=== PATIENT | female | born 1965 | race Caucasian/White ===

== ENCOUNTER 2021-05-19 04:02 | Inpatient (IN) | payer OTHER, SELFPAY ==
[2021-05-19] VITALS (20 sets, daily range): BP systolic 92–128; BP diastolic 55–99; PULSE 74–120; RESP 14–33; TEMP 36.2–38.1; O2SAT 92–100; BMI 39.4; BMI 39.7
--- NOTE | 2021-05-19 04:12 | ED.RN ---
Last night started with rectal pain and in pelvic area and lower back. Took tylenol for pain. Started senna but states she does not know if she went a while without a bm but had back in november so took it. By Saturday, felt lethargic and drank fluids and rested. Woke up Saturday night and was sweating and said fever was maybe 100. Went to Urgent Care and states had a fever then. Took tylenol today at 0130 because temp 99.9. But also SOb and nausea and not able to drink because of nausea and threw up. States the nausea has been for one day. Then, states last two days, not drinking a lot.
--- NOTE | 2021-05-19 04:26 | EX.ED.DYSGE1 ---
HPI <Dr. Titi Preston, DO - Last Filed: 05/19/21 06:55> History of Present Illness Chief Complaint: General Illness Narrative Narrative: Patient is a 56-year-old female who states that over the last 24 to 48 hours she has noticed some generalized lower abdominal discomfort with difficulty/pain urinating as well as rectal pain. She denies any fevers or chills or trauma prior to the pain beginning. She states she has felt slightly constipated during this time. Patient denies any previous intestinal disorder and states her only abdominal surgery is gallbladder removal. She states that she feels the pain is worsening and with this is concerned and comes in for evaluation [facility] <Dr. Titi Preston, DO - Last Filed: 05/19/21 06:55> [facility] Home Medications NK 05/19/21 [History Last Taken Unknown] Allergy/AdvReac Type Severity Reaction Status Date / Time No Known Allergies Allergy Verified 06/02/17 11:03 Social History Smoking Status: Never smoker ROS <Dr. Titi Preston, DO - Last Filed: 05/19/21 06:55> ROS ED Constitutional Constitutional ED: Denies chills or fever(s) ENT ENT ED: Denies sore throat Cardiovascular Cardiovascular: Denies chest pain Respiratory/Chest Respiratory/Chest: Denies cough or dyspnea Gastrointestinal Gastrointestinal: Reports abdominal pain, constipation and nausea; Denies diarrhea or vomiting Genitourinary Genitourinary ED: Reports dysuria Musculoskeletal Musculoskeletal: Reports myalgias Integumentary Denies rash Neurologic Neurologic: Denies headache(s) Hematologic/Lymphatic Hematologic/Lymphatic: Denies easy bleeding or easy bruising EXAM <Dr. Titi Preston, DO - Last Filed: 05/19/21 06:55> Physical Exam Const Vital Signs: 05/19/21 04:04 05/19/21 04:08 05/19/21 04:10 Temperature 98.3 F 98.3 F Temperature Source Temporal Temporal Pulse Rate 120 H 95 Respiratory Rate 17 17 Respiratory Effort Normal Respiratory Pattern Normal Blood Pressure 126/68 H 128/68 H Blood Pressure Mean 87 88 Pulse Ox 95 98 Oxygen Delivery Method Room Air Room Air 05/19/21 06:26 05/19/21 06:59 05/19/21 07:01 Temperature 98.7 F 98.2 F 98.7 F Temperature Source Temporal Temporal Temporal Pulse Rate 104 H 74 99 Respiratory Rate 16 17 18 Respiratory Effort Respiratory Pattern Blood Pressure 128/72 H 122/65 H 122/65 H Blood Pressure Mean 90 84 84 Pulse Ox 98 98 97 Oxygen Delivery Method Room Air Room Air Room Air 05/19/21 08:23 05/19/21 09:00 Temperature 97.1 F L Temperature Source Temporal Pulse Rate 91 83 Respiratory Rate 16 14 Respiratory Effort Respiratory Pattern Blood Pressure 124/71 H 121/81 H Blood Pressure Mean 88 94 Pulse Ox 98 95 Oxygen Delivery Method Room Air Room Air Positive well nourished and well developed General Appearance ED: well developed HEENT Reports moist mucous membranes Eyes PERRL and EOMs intact bilaterally Neck supple Chest Wall palpation of chest normal Resp normal respiratory effort and clear to auscultation bilaterally Cardio regular rate and regular rhythm Rate: other Other Details: Radial pulses are plus 2 out of 4 bilaterally are equal and symmetric GI GI Narrative: Abdomen is obese soft and nondistended with hypoactive bowel sounds. There is pain with palpation in the left lower quadrant with mild voluntary guarding at the site. No rigidity or pulsatile mass noted Back/Spine no CVA tenderness Extremity normal to inspection Neuro oriented x3 and CN's II-XII intact bilaterally Sensorium / Orientation: alert Motor Exam: strength 5/5 throughout Psych mental status grossly normal Skin no rashes or lesions noted <Dr. Elier Juan MD - Last Filed: 05/19/21 10:28> Physical Exam Const Vital Signs: 05/19/21 04:04 05/19/21 04:08 05/19/21 04:10 Temperature 98.3 F 98.3 F Temperature Source Temporal Temporal Pulse Rate 120 H 95 Respiratory Rate 17 17 Respiratory Effort Normal Respiratory Pattern Normal Blood Pressure 126/68 H 128/68 H Blood Pressure Mean 87 88 Pulse Ox 95 98 Oxygen Delivery Method Room Air Room Air 05/19/21 06:26 05/19/21 06:59 05/19/21 07:01 Temperature 98.7 F 98.2 F 98.7 F Temperature Source Temporal Temporal Temporal Pulse Rate 104 H 74 99 Respiratory Rate 16 17 18 Respiratory Effort Respiratory Pattern Blood Pressure 128/72 H 122/65 H 122/65 H Blood Pressure Mean 90 84 84 Pulse Ox 98 98 97 Oxygen Delivery Method Room Air Room Air Room Air 05/19/21 08:23 05/19/21 09:00 Temperature 97.1 F L Temperature Source Temporal Pulse Rate 91 83 Respiratory Rate 16 14 Respiratory Effort Respiratory Pattern Blood Pressure 124/71 H 121/81 H Blood Pressure Mean 88 94 Pulse Ox 98 95 Oxygen Delivery Method Room Air Room Air [facility] <Dr. Titi Preston, DO - Last Filed: 05/19/21 06:55> [facility] Narrative Medical decision making narrative: Patient presented to the ER afebrile but did report worsening pain over the past 24 hours and did have mild guarding on exam. Therefore elected to perform basic laboratory studies and a CT scan. The patient's white count is grossly elevated at 30.4 and she denies any recent steroid use. Despite this high value her lactic is normal at 1.9. CT scan showed an approximate 11 cm pelvic abscess with tubo-ovarian abscess. With this finding the patient was started on vancomycin and Zosyn and blood cultures were obtained. The case was discussed with [facility] TECHNICIAN and they recommend pelvic ultrasound at this time. Therefore the pelvic ultrasound will be obtained. Following this the case can once more be discussed with [facility]ING TECHNICIAN but I feel that based on the patient's pain white blood cell count and pelvic infection that she needs to be kept in the hospital and should be admitted at this time for further treatment. Lab Data Attestation: I reviewed the patient's lab results. Labs: Laboratory Results - last 24 hr 05/19/21 05/19/21 05/19/21 04:25 04:30 04:30 WBC 30.4 H* RBC 3.36 L Hgb 8.9 L Hct 27.5 L MCV 81.8 MCH 26.5 L MCHC 32.4 RDW Std Deviation 47.4 H RDW Coeff of Aldo 15.7 H Plt Count 490 H MPV 9.6 Immature Gran % (Auto) 3.900 H Neut % (Auto) 87.0 H Lymph % (Auto) 3.8 L [place] % (Auto) 4.7 Eos % (Auto) 0.2 Baso % (Auto) 0.4 Absolute Neuts (auto) 26.5 H Absolute Lymphs (auto) 1.14 Nucleated RBC % 0 [address] Review May foll Sodium 136 Potassium 3.4 L Chloride 100 Carbon Dioxide 27.0 Anion Gap 9 BUN 13 Creatinine 0.63 Estim Creat Clear Calc 88.15 Est GFR (MDRD) Af Amer 126 Est GFR (MDRD) Non-Af 104 BUN/Creatinine Ratio 20.6 H Glucose 127 H Lactic Acid 1.9 Calcium 8.8 Total Bilirubin 0.40 Direct Bilirubin 0.21 AST 46 H ALT 44 Alkaline Phosphatase 177 H Total Protein 6.7 Albumin 1.9 L Globulin 4.8 H Lipase 48 L Urine Color Urine Clarity Urine pH Ur Specific [place] Urine Protein Urine Glucose (UA) Urine Ketones Urine Occult Blood Urine Nitrite Urine Bilirubin Urine Urobilinogen Ur Leukocyte Esterase Urine RBC Urine WBC Ur Squamous Epith Cells Urine Bacteria Urine Mucus 05/19/21 04:50 WBC RBC Hgb Hct MCV MCH MCHC RDW Std Deviation RDW Coeff of Aldo Plt Count MPV Immature Gran % (Auto) Neut % (Auto) Lymph % (Auto) [place] % (Auto) Eos % (Auto) Baso % (Auto) Absolute Neuts (auto) Absolute Lymphs (auto) Nucleated RBC % Diff Path Review Sodium Potassium Chloride Carbon Dioxide Anion Gap BUN Creatinine Estim Creat Clear Calc Est GFR (MDRD) Af Amer Est GFR (MDRD) Non-Af BUN/Creatinine Ratio Glucose Lactic Acid Calcium Total Bilirubin Direct Bilirubin AST ALT Alkaline Phosphatase Total Protein Albumin Globulin Lipase Urine Color Sneha Urine Clarity Cloudy Urine pH 6.0 Ur Specific [place] 1.020 Urine Protein 100 H Urine Glucose (UA) Normal Urine Ketones 5 H Urine Occult Blood 250 H Urine Nitrite Positive H Urine Bilirubin 1 H Urine Urobilinogen 4 H Ur Leukocyte Esterase 100 H Urine RBC > 100 SEEN Urine WBC 5-10 SEEN Ur Squamous Epith Cells 0-5 SEEN Urine Bacteria 1+ Urine Mucus 0 SEEN Radiography Diagnostic Testing: Clinical Impression(s) from Imaging Studies Abdomen/Pelvis CT 05/19/21 04:27 IMPRESSION: Pelvic abscess, probably left tubo-ovarian abscess. Electronically Signed: Jerson Munguia MD at 6:25 EDT Tel , Service support , Pelvis Ultrasound 05/19/21 06:40 IMPRESSION: Complex cystic structure of the left ovary correlating abnormality on CT continues to be suspicious for tubo-ovarian abscess. Electronically Signed: Tal French MD ([place]) at 8:07 EDT , Service support , <Dr. Elier Juan MD - Last Filed: 05/19/21 10:28> MDM MDM Narrative Medical decision making narrative: Took over care of this patient. Ultrasound was performed after CT and is consistent with a left tubo-ovarian abscess, correlating with the CT findings. Discussed with Dr. Bacon, now covering for gynecology. She discussed with interventional radiology, they will drain her early this afternoon, and in the meantime she will be admitted. The patient is doing well clinically, her pain is under control and her vital signs are normal. Antibiotics were given in the emergency department. Lab Data Labs: Laboratory Results - last 24 hr 05/19/21 05/19/21 05/19/21 04:25 04:30 04:30 WBC 30.4 H* RBC 3.36 L Hgb 8.9 L Hct 27.5 L MCV 81.8 MCH 26.5 L MCHC 32.4 RDW Std Deviation 47.4 H RDW Coeff of Aldo 15.7 H Plt Count 490 H MPV 9.6 Immature Gran % (Auto) 3.900 H Neut % (Auto) 87.0 H Lymph % (Auto) 3.8 L [place] % (Auto) 4.7 Eos % (Auto) 0.2 Baso % (Auto) 0.4 Absolute Neuts (auto) 26.5 H Absolute Lymphs (auto) 1.14 Nucleated RBC % [address] Review May foll Sodium 136 Potassium 3.4 L Chloride 100 Carbon Dioxide 27.0 Anion Gap 9 BUN 13 Creatinine 0.63 Estim Creat Clear Calc 88.15 Est GFR (MDRD) Af Amer 126 Est GFR (MDRD) Non-Af 104 BUN/Creatinine Ratio 20.6 H Glucose 127 H Lactic Acid 1.9 Calcium 8.8 Total Bilirubin 0.40 Direct Bilirubin 0.21 AST 46 H ALT 44 Alkaline Phosphatase 177 H Total Protein 6.7 Albumin 1.9 L Globulin 4.8 H Lipase 48 L Urine Color Urine Clarity Urine pH Ur Specific [place] Urine Protein Urine Glucose (UA) Urine Ketones Urine Occult Blood Urine Nitrite Urine Bilirubin Urine Urobilinogen Ur Leukocyte Esterase Urine RBC Urine WBC Ur Squamous Epith Cells Urine Bacteria Urine Mucus 05/19/21 04:50 WBC RBC Hgb Hct MCV MCH MCHC RDW Std Deviation RDW Coeff of Aldo Plt Count MPV Immature Gran % (Auto) Neut % (Auto) Lymph % (Auto) [place] % (Auto) Eos % (Auto) Baso % (Auto) Absolute Neuts (auto) Absolute Lymphs (auto) Nucleated RBC % Diff Path Review Sodium Potassium Chloride Carbon Dioxide Anion Gap BUN Creatinine Estim Creat Clear Calc Est GFR (MDRD) Af Amer Est GFR (MDRD) Non-Af BUN/Creatinine Ratio Glucose Lactic Acid Calcium Total Bilirubin Direct Bilirubin AST ALT Alkaline Phosphatase Total Protein Albumin Globulin Lipase Urine Color Sneha Urine Clarity Cloudy Urine pH 6.0 Ur Specific [place] 1.020 Urine Protein 100 H Urine Glucose (UA) Normal Urine Ketones 5 H Urine Occult Blood 250 H Urine Nitrite Positive H Urine Bilirubin 1 H Urine Urobilinogen 4 H Ur Leukocyte Esterase 100 H Urine RBC > 100 SEEN Urine WBC 5-10 SEEN Ur Squamous Epith Cells 0-5 SEEN Urine Bacteria 1+ Urine Mucus 0 SEEN Radiography Diagnostic Testing: Clinical Impression(s) from Imaging Studies Abdomen/Pelvis CT 05/19/21 04:27 IMPRESSION: Pelvic abscess, probably left tubo-ovarian abscess. Electronically Signed: Jerson Munguia MD at 6:25 EDT Tel , Service support , Pelvis Ultrasound 05/19/21 06:40 IMPRESSION: Complex cystic structure of the left ovary correlating abnormality on CT continues to be suspicious for tubo-ovarian abscess. Electronically Signed: Tal French MD ([place]) at 8:07 EDT , Service support , Discharge Plan Triage Chief Complaint: General Illness ED Provider: Elier Juan Dx/Rx/DC Orders Clinical Impression: Leukocytosis, Left tubo-ovarian abscess Prescriptions: No Action NK RF: 0 Primary Care Provider: Janet Simon Referrals: Janet Simon MD [Primary Care Provider] - Disposition Disposition: Acute Care Hospital [facility]
--- NOTE | 2021-05-19 04:27 | CT_ITS ---
STUDY: CT ABDOMEN AND PELVIS WITH CONTRAST REASON FOR EXAM: Female, 56 years old. LLQ pain / ? Diverticulitis RADIATION DOSAGE (If Supplied By Facility): CTDIvol = ( 15.26 ) mGy, DLP = ( 1297.33 ) mGycm TECHNIQUE: Transaxial images were obtained from the dome of the diaphragm to the symphysis pubis without oral contrast. IV 100mL Isovue-[id number] was administered. Sagittal and coronal images were reconstructed. Individualized dose optimization techniques were used for this CT. COMPARISON: 06/02/2017 FINDINGS: The visualized lung bases are unremarkable. The visualized portions of the heart are within normal limits. Normal liver. Small upper hepatic cysts redemonstrated. There are surgical clips in the gallbladder fossa consistent with a prior cholecystectomy. Normal spleen. Normal pancreas. Normal bilateral adrenal glands. Normal right kidney. Normal left kidney. Small hiatal hernia. Normal visualized stomach. Normal small intestine. There are multiple colonic diverticula consistent with diverticulosis. The appendix is visualized and appears normal. Normal abdominal aorta. Normal inferior vena cava. Normal retroperitoneum. Normal urinary bladder. A 10.8 cm loculated fluid and gas collection with surrounding fat haziness and fluid abuts the left aspect of the uterus, and the posterior aspect of the left fallopian tube, which separates this structure from the sigmoid colon. There is a small umbilical hernia containing fat. Thoracolumbar vertebral alignment is maintained. CT/Abdomen/Pelvis W IV Cont ONLY IMPRESSION: Pelvic abscess, probably left tubo-ovarian abscess. Electronically Signed: Jerson Munguia MD at 6:25 EDT Tel , Service support ,
[2021-05-19 04:41] LABS: Absolute Lymphocyte Count 1.14 X10^3/uL (0.83-4.51); Absolute Neutrophil Count 26.5 X10^3/uL (2.0-7.7); Basophil# 0.11 X10^3/uL; Basophil% 0.4 % (0-1); Eosinophil# 0.05 X10^3/uL; Eosinophils% 0.2 % (0-5); Hematocrit 27.5 % (37-47); Hemoglobin 8.9 g/dL (12.0-15.0); Lymphocyte # 1.14 X10^3/ul (0.83-4.51); Lymphocyte % 3.8 % (19-41); Mean Corp Hgb Conc 32.4 g/dL (32-36); Mean Corpuscular Hgb 26.5 pg (27.0-32.0); Mean Corpuscular Volume 81.8 fL (81-99); Mean Platelet Vol. 9.6 fl (6.2-12.0); Monocyte# 1.42 X10^3/uL; Monocyte% 4.7 % (0-10); NRBC Flagged by Analyzer 0 % (0-5); Neutrophil # 26.49 X10^3/uL (2.7-7.7); POSITIVE COUNT YES; POSITIVE DIFFERENTIAL YES; Platelet Count 490 K/mm3 (150-450); RBC Distribution Width CV 15.7 % (11.6-14.6); RBC Distribution Width SD 47.4 fl (35.1-43.9); Red Blood Count 3.36 M/mm3 (4.2-5.4); White Blood Count 30.4 K/mm3 (4.4-11.0)
[2021-05-19 04:46] LABS: Differential Indicated SCAN CRITERIA MET
[2021-05-19 04:51] LABS: AST(SGOT) 46 U/L (15-37); Alanine Aminotransfer ALT/SGPT 44 U/L (13-56); Albumin, Serum 1.9 g/dL (3.2-5.0); Alkaline Phosphatase 177 U/L (45-117); Anion Gap 9 (5-15); BUN 13 mg/dL (7-18); BUN/Creat Ratio 20.6 RATIO (10-20); Bilirubin, Direct 0.21 mg/dL (0.00-0.30); Calcium,Total 8.8 mg/dL (8.5-10.1); Chloride 100 mmol/L (98-107); Creatinine, Serum 0.63 mg/dL (0.55-1.02); EST Glomerular Filtration Rate 104 mL/min (>60); Est Glom Filt Rate - Afr Amer 126 mL/min (>60); Estimated Creatinine Clearance 88.15 ml/min; Globulin 4.8 g/dL (2.2-4.2); Glucose 127 mg/dL (74-106); Lipase 48 U/L (73-393); Potassium 3.4 mmol/L (3.5-5.1); Protein, Total 6.7 g/dL (6.4-8.2); Sodium Level 136 mmol/L (136-145)
[2021-05-19] MEDS: Ondansetron 4 MG/2 ML Vial IV (04:54)
[2021-05-19] MEDS: Morphine 4 MG/ML Syringe IV ×2 (04:54→10:37)
[2021-05-19] MEDS: 0.9% Normal Saline 1,000 ML 999 ML IV (04:55)
[2021-05-19 04:56] LABS: Color, Urine Amber (Yellow); Glucose, Dipstick Normal (Normal); Ketone-Dipstick 5 mg/dl (Negative); Leukocyte Esterase-Dipstick 100 /ul (Negative); Mucous, Urine 0 SEEN /hpf (<or=2+); Nitrite-Dipstick Positive (Negative); Occult Blood-Urine 250 /ul (Negative); Protein-Dipstick 100 mg/dl (Negative); Urine Clarity Cloudy (Clear); Urine Urobilinogen 4 mg/dl (Normal)
[2021-05-19 04:59] LABS: Urine Bilirubin Dipstick 1 mg/dL (Negative)
[2021-05-19 05:07] LABS: Red Blood Cells-Urine > 100 SEEN /hpf (0-5)
[2021-05-19 05:08] LABS: Bacteria 1+ /hpf (None Seen); White Blood Cells 5-10 SEEN /hpf (0-5)
[2021-05-19 05:09] LABS: Squamous Epithelial Cells - UA 0-5 SEEN /hpf (5-10)
[2021-05-19 05:09] LABS: Lactic Acid 1.9 mmol/L (0.4-1.9)
--- NOTE | 2021-05-19 06:40 | US_ITS ---
STUDY: ULTRASOUND OF THE FEMALE PELVIS - COMPLETE REASON FOR EXAM: Female, 56 years old. Pelvic/tubo-ovarian abscess LMP: Unknown TECHNIQUE: Transabdominal and Transvaginal TECHNICAL QUALITY: Adequate. COMPARISON: CT earlier today FINDINGS: The uterus is anteverted and is in a midline position. The uterus measures cm. Normal uterine cervix. The endometrium measures 12.1 x 6.4 x 5.2 mm in thickness, and is 9. There is no demonstrated endometrial mass. Hypoechoic lesion of the upper uterine body measures 2.2 cm, suggesting right. I.U.D. - The patient does not have an I.U.D. The right ovary is visualized. The right ovary measures 2.8 x 2.4 x 1.9 cm. There is no right ovarian cyst or ovarian mass. There is no visualized right adnexal mass or complex lesion. There is normal arterial and normal venous vascularity. The left ovary is visualized. The left ovary measures 12.3 x 5.7 x 6.3 cm. Complex hypoechoic cystic structure of the left ovary measures 4.0 x 4.0 x 2.7 cm (superior) and 6.5 x 4.4 x 4.0 cm (inferior). There is normal arterial and normal venous vascularity. There is no fluid in the cul-de-sac. Visualized urinary bladder is unremarkable. US/Pelvic (Non ) IMPRESSION: Complex cystic structure of the left ovary correlating abnormality on CT continues to be suspicious for tubo-ovarian abscess. Electronically Signed: Tal French MD ([place]) at 8:07 EDT , Service support ,
--- NOTE | 2021-05-19 10:27 | NURSING ---
MED SURG SHEEBA Ruiz TOA
--- NOTE | 2021-05-19 10:41 | ED.RN ---
provider aware of pt's red/flush face. no new orders given.
--- NOTE | 2021-05-19 10:47 | NURSING ---
blue top needs redrawn, not full enough
[2021-05-19 11:14] LABS: International Normalized Ratio 1.3; Prothrombin Time (Protime)PT. 15.2 SECONDS (11.7-14.9)
[2021-05-19 11:15] LABS: Partial Thromboplast Time 32.8 Seconds (24.1-36.2)
[2021-05-19] MEDS: Ceftriaxone 1 GM/50 ML BAG IV (12:48)
[2021-05-19] MEDS: 0.9% Normal Saline 1,000 ML 125 ML IV ×2 (13:05→21:33)
--- NOTE | 2021-05-19 14:10 | CT_ITS ---
PROCEDURE: CT DIRECTED ABSCESS DRAINAGE, PERITONEAL DATE OF EXAMINATION: 05/19/2021. INDICATION: Female, 56 years old. Left pelvic abscess. PHYSICIAN: Abel Vee M.D. CONSENT: Written informed consent was obtained having explained the risks, benefits and alternatives in detail with the patient who accepted the risks and agreed to proceed. Laboratory review and clinical assessment was performed. CONSCIOUS SEDATION PROTOCOL: The Drugs used were: 2 mg Versed, IV., and 75 mcg Fentanyl, IV. The sedation time was: 33 minutes. Conscious sedation was started at the 2:12 PM and terminated The conscious sedation protocol was independently monitored. RADIATION DOSAGE (If Supplied By Facility): CTDIvol = ( 27 ) mGy, DLP = ( 44.90, 9.1 ) mGycm TECHNIQUE: CT sections were made through the abdomen and pelvis revealing an abscess in the left lower quadrant. The skin surface was prepped and draped in a sterile fashion. Puncture of this collection was performed initially with a 5 [place] catheter and fluid was aspirated. Drainage catheter was then inserted into the collection and formed into position. Additional fluid was aspirated for a total of approximately 45 cc of cloudy red fluid. The catheter was sutured into position to allow for continued drainage. Followup CT sections reveals good position of the catheter. CT/CT Guidance Abscess Drg w/Cath IMPRESSION: 1. CT directed drainage of a fluid collection using CT image guidance and image documentation as described. 2. Conscious Sedation protocol utilized with independent monitoring Electronically Signed: Abel Vee MD at 15:18 EDT , Service support ,
[2021-05-19] MEDS: fentaNYL 100 MCG/2 ML Ampul IV ×2 (14:12→14:32)
[2021-05-19] MEDS: Midazolam 2 MG/2 ML Syringe IV (14:12)
[2021-05-19] MEDS: Lidocaine 2% (20 ml mdv) 20 ML Vial INFILT (14:15)
[2021-05-19 15:40] LABS: Pathologist Review Reviewed
[2021-05-19] MEDS: metroNIDAZOLE 500 MG/100 ML BAG 100 MG IV ×2 (15:43→22:30)
[2021-05-19] MEDS: HYDROmorphone 0.5 MG/0.5 ML SYRINGE IV (18:26)
--- NOTE | 2021-05-19 21:49 | PCM.HP.OB ---
HPI - General General Date of Admission: 05/19/21 HPI Narrative SAQIB MELGAR, is a 56 F who presents with fevers and pelvic pain for 1 week. She reports having temps at home of 99 and diffuse abdominal and pelvic pain. Some nausea and a decreased appetite. No vaginal discharge. Menstrual cycles were regular but not having irregular bleeding and spotting. Has not been sexually active for 10 year. PFSH PFSH Home Medications NK 05/19/21 [History Last Taken Unknown] Allergy/AdvReac Type Severity Reaction Status Date / Time No Known Allergies Allergy Verified 06/02/17 11:03 Surgical History (Updated 05/19/21 @ 12:18 by Leilani Merritt) History of cholecystectomy Social History Smoking Status: Never smoker ROS Constitutional Constitutional: Reports chills and fever(s) Gastrointestinal Gastrointestinal: Reports abdominal pain and nausea; Denies vomiting Vital Signs Vital Signs Vital Signs: 05/19/21 04:04 05/19/21 04:08 05/19/21 04:10 Temperature 98.3 F 98.3 F Temperature Source Temporal Temporal Pulse Rate 120 H 95 Pulse Rate [1 (Initial Baseline)] Pulse Rate [2] Pulse Rate [3] Pulse Rate [4] Pulse Rate [5] Pulse Rate [6] Pulse Rate [7] Respiratory Rate 17 17 Respiratory Rate [1 (Initial Baseline)] Respiratory Rate [2] Respiratory Rate [3] Respiratory Rate [4] Respiratory Rate [5] Respiratory Rate [6] Respiratory Rate [7] Respiratory Effort Normal Respiratory Pattern Normal Blood Pressure 126/68 H 128/68 H Blood Pressure [1 (Initial Baseline)] Blood Pressure [2] Blood Pressure [3] Blood Pressure [4] Blood Pressure [5] Blood Pressure [6] Blood Pressure [7] Blood Pressure Mean 87 88 Blood Pressure Source Blood Pressure Position Blood Pressure Location Baseline BP Pulse Ox 95 98 Oxygen Delivery Method Room Air Room Air Oxygen Delivery Method [1 (Initial Baseline)] Oxygen Delivery Method [2] Oxygen Delivery Method [3] Oxygen Delivery Method [4] Oxygen Delivery Method [5] Oxygen Delivery Method [6] Oxygen Delivery Method [7] Oxygen Flow Rate (L/min) [2] Oxygen Flow Rate (L/min) [3] Oxygen Flow Rate (L/min) [4] Oxygen Flow Rate (L/min) [5] Oxygen Flow Rate (L/min) [6] Oxygen Flow Rate (L/min) [7] 05/19/21 06:26 05/19/21 06:59 05/19/21 07:01 Temperature 98.7 F 98.2 F 98.7 F Temperature Source Temporal Temporal Temporal Pulse Rate 104 H 74 99 Pulse Rate [1 (Initial Baseline)] Pulse Rate [2] Pulse Rate [3] Pulse Rate [4] Pulse Rate [5] Pulse Rate [6] Pulse Rate [7] Respiratory Rate 16 17 18 Respiratory Rate [1 (Initial Baseline)] Respiratory Rate [2] Respiratory Rate [3] Respiratory Rate [4] Respiratory Rate [5] Respiratory Rate [6] Respiratory Rate [7] Respiratory Effort Respiratory Pattern Blood Pressure 128/72 H 122/65 H 122/65 H Blood Pressure [1 (Initial Baseline)] Blood Pressure [2] Blood Pressure [3] Blood Pressure [4] Blood Pressure [5] Blood Pressure [6] Blood Pressure [7] Blood Pressure Mean 90 84 84 Blood Pressure Source Blood Pressure Position Blood Pressure Location Baseline BP Pulse Ox 98 98 97 Oxygen Delivery Method Room Air Room Air Room Air Oxygen Delivery Method [1 (Initial Baseline)] Oxygen Delivery Method [2] Oxygen Delivery Method [3] Oxygen Delivery Method [4] Oxygen Delivery Method [5] Oxygen Delivery Method [6] Oxygen Delivery Method [7] Oxygen Flow Rate (L/min) [2] Oxygen Flow Rate (L/min) [3] Oxygen Flow Rate (L/min) [4] Oxygen Flow Rate (L/min) [5] Oxygen Flow Rate (L/min) [6] Oxygen Flow Rate (L/min) [7] 05/19/21 08:23 05/19/21 09:00 05/19/21 10:32 Temperature 97.1 F L 98.4 F Temperature Source Temporal Oral Pulse Rate 91 83 87 Pulse Rate [1 (Initial Baseline)] Pulse Rate [2] Pulse Rate [3] Pulse Rate [4] Pulse Rate [5] Pulse Rate [6] Pulse Rate [7] Respiratory Rate 16 14 14 Respiratory Rate [1 (Initial Baseline)] Respiratory Rate [2] Respiratory Rate [3] Respiratory Rate [4] Respiratory Rate [5] Respiratory Rate [6] Respiratory Rate [7] Respiratory Effort Respiratory Pattern Blood Pressure 124/71 H 121/81 H 105/69 Blood Pressure [1 (Initial Baseline)] Blood Pressure [2] Blood Pressure [3] Blood Pressure [4] Blood Pressure [5] Blood Pressure [6] Blood Pressure [7] Blood Pressure Mean 88 94 81 Blood Pressure Source Blood Pressure Position Blood Pressure Location Baseline BP Pulse Ox 98 95 92 Oxygen Delivery Method Room Air Room Air Room Air Oxygen Delivery Method [1 (Initial Baseline)] Oxygen Delivery Method [2] Oxygen Delivery Method [3] Oxygen Delivery Method [4] Oxygen Delivery Method [5] Oxygen Delivery Method [6] Oxygen Delivery Method [7] Oxygen Flow Rate (L/min) [2] Oxygen Flow Rate (L/min) [3] Oxygen Flow Rate (L/min) [4] Oxygen Flow Rate (L/min) [5] Oxygen Flow Rate (L/min) [6] Oxygen Flow Rate (L/min) [7] 05/19/21 10:33 05/19/21 12:09 05/19/21 13:46 Temperature 98.4 F 99.4 F H Temperature Source Oral Oral Pulse Rate 87 85 91 Pulse Rate [1 (Initial Baseline)] Pulse Rate [2] Pulse Rate [3] Pulse Rate [4] Pulse Rate [5] Pulse Rate [6] Pulse Rate [7] Respiratory Rate 14 18 24 H Respiratory Rate [1 (Initial Baseline)] Respiratory Rate [2] Respiratory Rate [3] Respiratory Rate [4] Respiratory Rate [5] Respiratory Rate [6] Respiratory Rate [7] Respiratory Effort Respiratory Pattern Normal Blood Pressure 105/69 115/61 103/66 Blood Pressure [1 (Initial Baseline)] Blood Pressure [2] Blood Pressure [3] Blood Pressure [4] Blood Pressure [5] Blood Pressure [6] Blood Pressure [7] Blood Pressure Mean 81 79 78 Blood Pressure Source Monitor Monitor Blood Pressure Position Semi-Fowlers Semi-Fowlers Blood Pressure Location Left Arm Left Arm Baseline BP Pulse Ox 92 98 100 Oxygen Delivery Method Room Air Room Air Room Air Oxygen Delivery Method [1 (Initial Baseline)] Oxygen Delivery Method [2] Oxygen Delivery Method [3] Oxygen Delivery Method [4] Oxygen Delivery Method [5] Oxygen Delivery Method [6] Oxygen Delivery Method [7] Oxygen Flow Rate (L/min) [2] Oxygen Flow Rate (L/min) [3] Oxygen Flow Rate (L/min) [4] Oxygen Flow Rate (L/min) [5] Oxygen Flow Rate (L/min) [6] Oxygen Flow Rate (L/min) [7] 05/19/21 14:12 05/19/21 14:45 05/19/21 14:50 Temperature Temperature Source Pulse Rate 94 94 Pulse Rate [1 (Initial Baseline)] 91 Pulse Rate [2] 89 Pulse Rate [3] 90 Pulse Rate [4] 90 Pulse Rate [5] 90 Pulse Rate [6] 98 Pulse Rate [7] 90 Respiratory Rate 30 H 33 H Respiratory Rate [1 (Initial Baseline)] 26 H Respiratory Rate [2] 24 H Respiratory Rate [3] 27 H Respiratory Rate [4] 33 H Respiratory Rate [5] 33 H Respiratory Rate [6] 33 H Respiratory Rate [7] 32 H Respiratory Effort Respiratory Pattern Blood Pressure 105/64 112/61 Blood Pressure [1 (Initial Baseline)] 114/66 Blood Pressure [2] 126/69 H Blood Pressure [3] 118/68 Blood Pressure [4] 117/70 Blood Pressure [5] 113/63 Blood Pressure [6] 113/63 Blood Pressure [7] 105/64 Blood Pressure Mean 77 78 Blood Pressure Source Monitor Blood Pressure Position Semi-Fowlers Blood Pressure Location Left Arm Baseline BP 103/99 103/99 Pulse Ox 98 96 Oxygen Delivery Method Room Air Room Air Oxygen Delivery Method [1 (Initial Baseline)] Room Air Oxygen Delivery Method [2] Nasal Cannula Oxygen Delivery Method [3] Nasal Cannula Oxygen Delivery Method [4] Nasal Cannula Oxygen Delivery Method [5] Nasal Cannula Oxygen Delivery Method [6] Nasal Cannula Oxygen Delivery Method [7] Nasal Cannula Oxygen Flow Rate (L/min) [2] 4 Oxygen Flow Rate (L/min) [3] 4 Oxygen Flow Rate (L/min) [4] 3 Oxygen Flow Rate (L/min) [5] 2 Oxygen Flow Rate (L/min) [6] 2 Oxygen Flow Rate (L/min) [7] 2 05/19/21 14:55 05/19/21 15:00 05/19/21 15:15 Temperature Temperature Source Pulse Rate 95 94 92 Pulse Rate [1 (Initial Baseline)] Pulse Rate [2] Pulse Rate [3] Pulse Rate [4] Pulse Rate [5] Pulse Rate [6] Pulse Rate [7] Respiratory Rate 31 H 31 H 28 H Respiratory Rate [1 (Initial Baseline)] Respiratory Rate [2] Respiratory Rate [3] Respiratory Rate [4] Respiratory Rate [5] Respiratory Rate [6] Respiratory Rate [7] Respiratory Effort Respiratory Pattern Blood Pressure 114/69 99/58 L 92/55 L Blood Pressure [1 (Initial Baseline)] Blood Pressure [2] Blood Pressure [3] Blood Pressure [4] Blood Pressure [5] Blood Pressure [6] Blood Pressure [7] Blood Pressure Mean 84 71 67 Blood Pressure Source Monitor Blood Pressure Position Semi-Fowlers Blood Pressure Location Left Arm Baseline BP 103/99 103/99 103/99 Pulse Ox 100 99 100 Oxygen Delivery Method Room Air Room Air Room Air Oxygen Delivery Method [1 (Initial Baseline)] Oxygen Delivery Method [2] Oxygen Delivery Method [3] Oxygen Delivery Method [4] Oxygen Delivery Method [5] Oxygen Delivery Method [6] Oxygen Delivery Method [7] Oxygen Flow Rate (L/min) [2] Oxygen Flow Rate (L/min) [3] Oxygen Flow Rate (L/min) [4] Oxygen Flow Rate (L/min) [5] Oxygen Flow Rate (L/min) [6] Oxygen Flow Rate (L/min) [7] 05/19/21 15:39 05/19/21 15:45 05/19/21 20:16 Temperature 100.4 F H 100.5 F H Temperature Source Oral Oral Pulse Rate 93 96 107 H Pulse Rate [1 (Initial Baseline)] Pulse Rate [2] Pulse Rate [3] Pulse Rate [4] Pulse Rate [5] Pulse Rate [6] Pulse Rate [7] Respiratory Rate 26 H 18 18 Respiratory Rate [1 (Initial Baseline)] Respiratory Rate [2] Respiratory Rate [3] Respiratory Rate [4] Respiratory Rate [5] Respiratory Rate [6] Respiratory Rate [7] Respiratory Effort Respiratory Pattern Normal Blood Pressure 103/61 96/70 111/70 Blood Pressure [1 (Initial Baseline)] Blood Pressure [2] Blood Pressure [3] Blood Pressure [4] Blood Pressure [5] Blood Pressure [6] Blood Pressure [7] Blood Pressure Mean 75 78 83 Blood Pressure Source Monitor Monitor Monitor Blood Pressure Position Semi-Fowlers Supine Semi-Fowlers Blood Pressure Location Left Arm Right Arm Right Arm Baseline BP 103/99 Pulse Ox 99 96 95 Oxygen Delivery Method Room Air Room Air Room Air Oxygen Delivery Method [1 (Initial Baseline)] Oxygen Delivery Method [2] Oxygen Delivery Method [3] Oxygen Delivery Method [4] Oxygen Delivery Method [5] Oxygen Delivery Method [6] Oxygen Delivery Method [7] Oxygen Flow Rate (L/min) [2] Oxygen Flow Rate (L/min) [3] Oxygen Flow Rate (L/min) [4] Oxygen Flow Rate (L/min) [5] Oxygen Flow Rate (L/min) [6] Oxygen Flow Rate (L/min) [7] Weight Weight: 231 lb 9.671 oz Body Mass Index (BMI) 39.7 Physical Exam Const alert General Appearance: cooperative HEENT normocephalic Resp normal respiratory effort GI soft to palpation and non-distended GI Narrative: No rebounding, guarding, rigidity Extremity normal to inspection Skin no rashes or lesions noted Labs Labs Labs: Hct 27.5 % (37-47) L Hgb 8.9 g/dL (12.0-15.0) L Assessment & Plan (1) Left tubo-ovarian abscess: PLAN: - WBC 30 - Afebrile on admission - CT scan and pelvic US show a ~10 pelvic abscess - Antibiotics were started in ER prior to cervical cx's. Pt is low risk for GC/CT, trich given she has not been sexually active for 10+ years - Blood cx's pending - IR to drain abscess and collect cx's - IV antibiotics started - IVF hydration - SCD's - Repeat CBC w/ diff in AM - Tylenol for fevers - Pain and nausea control (2) Leukocytosis:
[2021-05-19] MEDS: Acetaminophen 325 MG Tablet 650 MG PO (22:30)
[2021-05-20] VITALS (10 sets, daily range): BP systolic 99–123; BP diastolic 67–73; PULSE 91–103; RESP 16–18; TEMP 37–37.8; O2SAT 94–97
[2021-05-20] MEDS: HYDROmorphone 0.5 MG/0.5 ML SYRINGE IV ×3 (02:24→17:55)
--- NOTE | 2021-05-20 05:04 | NURSING ---
Pt's aerobic bottle gram stain came back gram positive cocci. I alerted OBGYN child nutrition manager which was a relocation coordinator for [facility]. She said she would notify Dr. Bacon later this morning.
[2021-05-20] MEDS: Acetaminophen 325 MG Tablet 650 MG PO ×2 (06:33→20:46)
[2021-05-20] MEDS: 0.9% Normal Saline 1,000 ML 125 ML IV ×2 (07:02→22:35)
[2021-05-20 07:35] LABS: Absolute Lymphocyte Count 2.05 X10^3/uL (0.83-4.51); Absolute Neutrophil Count 16.1 X10^3/uL (2.0-7.7); Basophil# 0.07 X10^3/uL; Basophil% 0.3 % (0-1); Eosinophil# 0.21 X10^3/uL; Hematocrit 26.6 % (37-47); Hemoglobin 7.8 g/dL (12.0-15.0); Lymphocyte # 2.05 X10^3/ul (0.83-4.51); Lymphocyte % 10.1 % (19-41); Mean Corp Hgb Conc 29.3 g/dL (32-36); Mean Corpuscular Hgb 25.7 pg (27.0-32.0); Mean Corpuscular Volume 87.5 fL (81-99); Mean Platelet Vol. 10.5 fl (6.2-12.0); Monocyte# 1.41 X10^3/uL; Monocyte% 6.9 % (0-10); NRBC Flagged by Analyzer 0.1 % (0-5); Neutrophil # 16.14 X10^3/uL (2.7-7.7); Neutrophil % 79.2 % (47-70); Platelet Count 406 K/mm3 (150-450); RBC Distribution Width CV 16.3 % (11.6-14.6); RBC Distribution Width SD 52.2 fl (35.1-43.9); Red Blood Count 3.04 M/mm3 (4.2-5.4); White Blood Count 20.4 K/mm3 (4.4-11.0)
--- NOTE | 2021-05-20 08:56 | PCS.PANDOC ---
PANDEMIC DOCUMENTATION INITIATED: Date: 03/13/2021 Time: 190
--- NOTE | 2021-05-20 09:25 | PCM.PN.OB ---
Subjective Subjective Patient feeling fevers and chills. Tolerating small amounts of PO but having nausea. Pain is well controlled at this point. No CP, SOB, leg pain. Ambulating with some dizziness. Objective Data Objective Data Vital Signs: Vital Signs Temp Pulse Resp BP Pulse Ox 98.6 F 91 16 116/68 95 05/20/21 08:23 05/20/21 08:23 05/20/21 08:23 05/20/21 08:23 05/20/21 08:23 Oxygen Flow Rate (L/min) [7] 2 Oxygen Flow Rate (L/min) [6] 2 Oxygen Flow Rate (L/min) [5] 2 Oxygen Flow Rate (L/min) [4] 3 Oxygen Flow Rate (L/min) [3] 4 Oxygen Flow Rate (L/min) [2] 4 Oxygen Delivery Method [7] Nasal Cannula Oxygen Delivery Method [6] Nasal Cannula Oxygen Delivery Method [5] Nasal Cannula Oxygen Delivery Method [4] Nasal Cannula Oxygen Delivery Method [3] Nasal Cannula Oxygen Delivery Method [2] Nasal Cannula Oxygen Delivery Method [1 ( Room Air Initial Baseline)] Oxygen Delivery Method Room Air Weight: 231 lb 9.671 oz Body Mass Index (BMI) 39.7 Intake & Output: Intake and Output for Last 24 Hours 05/18/21 05/19/21 05/20/21 23:59 23:59 23:59 Intake Total 3498.75 / 3498.75 941.67 / 941.67 Output Total 410 / 410 Balance 3468.75 / 3468.75 531.67 / 531.67 Lab / Micro Data Result Diagrams: 05/20/21 06:19 05/19/21 04:25 Labs: Laboratory Results - last 24 hr 05/19/21 04:30: Diff Path Review Reviewed 05/19/21 10:30: PT Cancelled, INR Cancelled, APTT Cancelled 05/19/21 11:00: PT 15.2 H, INR 1.3, APTT 32.8 05/20/21 06:19: WBC 20.4 H, RBC 3.04 L, Hgb 7.8 L, Hct 26.6 L, MCV 87.5 D, MCH 25.7 L, MCHC 29.3 L D, RDW Std Deviation 52.2 H, RDW Coeff of Aldo 16.3 H, Plt Count 406, MPV 10.5, Immature Gran % (Auto) 2.500 H, Neut % (Auto) 79.2 H, Lymph % (Auto) 10.1 L, [place] % (Auto) 6.9, Eos % (Auto) 1.0, Baso % (Auto) 0.3, Absolute Neuts (auto) 16.1 H, Absolute Lymphs (auto) 2.05, Nucleated RBC % 0.1 05/20/21 09:13: Crossmatch See Detail Micro: Microbiology 05/19/21 06:43 Blood Culture (Wb) - Anticubital Right Blood Culture - Preliminary Radiography Diagnostic Testing: Radiology Impression Abscess Drainage CT 05/19/21 14:10 IMPRESSION: 1. CT directed drainage of a fluid collection using CT image guidance and image documentation as described. 2. Conscious Sedation protocol utilized with independent monitoring Electronically Signed: Abel Vee MD at 15:18 EDT , Service support , Physical Exam Const alert and no apparent distress General Appearance: comfortable HEENT normocephalic Resp normal respiratory effort GI soft to palpation and non-distended GI Narrative: Minimally tender to palpation, no rebounding, no guarding, no rigidity Extremity no calf tenderness Skin no rashes or lesions noted Neuro no focal motor deficits Assessment & Plan (1) Left tubo-ovarian abscess: PLAN: - S/p IR drainage of abscess - Fluid cx's pending - Blood cx's positive - WBC trending down - Febrile overnight - Cont IVF hydration - CMP and lactic acid ordered - Discussed case with hospitalist who will follow patient and assist in management. Will change antibiotic regimen given blood cx's - Dispo: Cont to monitor and if no improvement over the weekend, will consider repeat CT (2) Leukocytosis: PLAN: - Improving (3) Sepsis: PLAN: - Consult placed to medicine to assist in magement (4) Anemia: PLAN: - Hgb ~7 from ~8 on admission. Pt is symptomatic. Ordered for 1 unit PRBC's. Abd exam is non acute. Unsure of her baseline Hgb (5) DVT prophylaxis: PLAN: - SCD's
[2021-05-20 09:43] LABS: ALB/GLOB Ratio 0.4 RATIO (0.9-2.4); AST(SGOT) 29 U/L (15-37); Alanine Aminotransfer ALT/SGPT 37 U/L (13-56); Albumin, Serum 1.7 g/dL (3.2-5.0); Alkaline Phosphatase 143 U/L (45-117); Anion Gap 6 (5-15); BUN 12 mg/dL (7-18); BUN/Creat Ratio 19.1 RATIO (10-20); Calcium,Total 7.4 mg/dL (8.5-10.1); Chloride 103 mmol/L (98-107); Creatinine, Serum 0.63 mg/dL (0.55-1.02); EST Glomerular Filtration Rate 105 mL/min (>60); Est Glom Filt Rate - Afr Amer 127 mL/min (>60); Estimated Creatinine Clearance 88.15 ml/min; Globulin 4.4 g/dL (2.2-4.2); Glucose 145 mg/dL (74-106); Potassium 3.1 mmol/L (3.5-5.1); Protein, Total 6.1 g/dL (6.4-8.2); Sodium Level 136 mmol/L (136-145)
[2021-05-20] MEDS: metroNIDAZOLE 500 MG/100 ML BAG 100 MG IV ×2 (09:47→20:41)
[2021-05-20 09:48] LABS: Lactic Acid 1.4 mmol/L (0.4-1.9)
--- NOTE | 2021-05-20 11:41 | PCM.RX.CS ---
Consult Pharmacy has been consulted to manage selected antiobiotic: Vancomycin Type of Consult: New start Prior Doses of Antibiotics Received/Current Regimen: received vanc 2000mg IV x1 in E.R. yesterday 05/19/21 at 08:35 Labs: Sodium 136 mmol/L (136-145) 05/20/21 09:13 Potassium 3.1 mmol/L (3.5-5.1) L 05/20/21 09:13 Chloride 103 mmol/L (98-107) 05/20/21 09:13 Carbon Dioxide 27.0 mmol/L (21.0-32.0) 05/20/21 09:13 Anion Gap 6 (5-15) 05/20/21 09:13 BUN 12 mg/dL (7-18) 05/20/21 09:13 Creatinine 0.63 mg/dL (0.55-1.02) 05/20/21 09:13 Est GFR (MDRD) Af Amer 127 mL/min (>60) 05/20/21 09:13 Est GFR (MDRD) Non-Af 105 mL/min (>60) 05/20/21 09:13 BUN/Creatinine Ratio 19.1 RATIO (10-20) 05/20/21 09:13 Glucose 145 mg/dL (74-106) H 05/20/21 09:13 Microbiology: Microbiology 05/19/21 14:22 Aspirate - Abdominal Wound Culture - Preliminary Alpha Hemolytic Streptococcus 05/19/21 04:50 Urine, Clean Catch Urine Culture - Preliminary Mixed Gram Positive Organisms 05/19/21 06:43 Blood Culture (Wb) - Anticubital Right Blood Culture - Preliminary Weight used for dosin kg Estimated Creatinine Clearance: 88ml/min Goal Trough: 15-20 mcg/mL Pharmacy Plan for Drug Dosing: It has been over 24 hours since the patient received the vanc dose in E.R. so will reload again with 2000mg as ordered x1 today. After that, will continue with 1750mg IV q12h. Will check a trough level before the 4th dose tomorrow night. Pharmacy Service will continue to monitor and adjust dosing as required. Follow-Up Labs: Trough Vancomycin Labs to be done on [date and time ordered]: 05/21/21 22:30
--- NOTE | 2021-05-20 12:40 | CASEMGMT ---
ANABELL TALBERT assessment: Face to Face with patient for initial transition planning/care coordination assessment. ANABELL TALBERT introduced self and role at [facility], pt voices understanding and consents to assessment. Pt is sitting up in bed in no distress. Pt is A/Ox4 and answers all questions appropriately. Pt's is at bedside during assessment. Care providers, pharmacy, and demographics verified. Presentation: Vaginal bleeding saturday, night sweats, fever, UTI sx's Admitting dx: Pelvic abscess PCP: Alfred Specialists: None Preferred Pharmacy: [facility] Insurance: [employer] Prescription Benefit: [employer] Living Will/HPOA: Pt states does not have LW/HPOA and declines AD info. LNOK: Jerome Pinto, Living Arrangements: Pt states lives with in 1 story home with 2 steps in and states no concerns at home. Pt is independent with ADL's. Transportation: Pt states drives self and states no transportation concerns. DME/HHC: Pt states no current DME or need for any further DME. Pt states no hx of HHC or SNF. Pt states no concerns with going home at time of discharge. Pt works project director. Pt states does not smoke cigarettes or drink ETOH. Pt voices no further concerns/needs. CM to follow for any further discharge planning/needs. Advised pt to ask for CM if any further questions/concerns/needs arise, voices understanding. Pt Goal: Home Plan: [place] ANABELL TALBERT
--- NOTE | 2021-05-20 14:33 | PN.HOSP_ITS ---
Subjective Subjective Patient is a 56 y/o female with a PMH as outlined who was admitted via the ED under the service of gynecology with a complaint of diffuse abdominal and pelvic pain, with associated nausea and decreased appetite. She denied any vaginal discharge and said she hadnt had any sexual activity recently in like a year. Imaging done showed a 10cm tubo ovarian abscess. She was admitted to the service of gynecology, and she had the abscess drained by interventional radiology. SHE was intially started on IV ceftriaxone, metronidazole and doxycycline. Hospitalist service was consulted due to concerns for sepsis. Patient seen and examined. She had no complaints. Pain is well controlled. Review of systems is otherwise negative. Objective Data Objective Data Vital Signs: Vital Signs Temp Pulse Resp BP Pulse Ox 98.9 F 94 16 99/69 96 05/20/21 13:50 05/20/21 13:50 05/20/21 13:50 05/20/21 13:50 05/20/21 13:50 Oxygen Flow Rate (L/min) [7] 2 Oxygen Flow Rate (L/min) [6] 2 Oxygen Flow Rate (L/min) [5] 2 Oxygen Flow Rate (L/min) [4] 3 Oxygen Flow Rate (L/min) [3] 4 Oxygen Flow Rate (L/min) [2] 4 Oxygen Delivery Method [7] Nasal Cannula Oxygen Delivery Method [6] Nasal Cannula Oxygen Delivery Method [5] Nasal Cannula Oxygen Delivery Method [4] Nasal Cannula Oxygen Delivery Method [3] Nasal Cannula Oxygen Delivery Method [2] Nasal Cannula Oxygen Delivery Method [1 ( Room Air Initial Baseline)] Oxygen Delivery Method Room Air Weight: 231 lb 9.671 oz Body Mass Index (BMI) 39.7 Intake & Output: Intake and Output for Last 24 Hours 05/18/21 05/19/21 05/20/21 23:59 23:59 23:59 Intake Total 3498.75 / 3498.75 2508.76 / 2508.76 Output Total 565 / 565 Balance 3468.75 / 3468.75 1943.76 / 1943.76 Lab / Micro Data Result Diagrams: 05/20/21 06:19 05/20/21 09:13 Labs: Laboratory Results - last 24 hr 05/19/21 04:30: Diff Path Review Reviewed 05/20/21 06:19: WBC 20.4 H, RBC 3.04 L, Hgb 7.8 L, Hct 26.6 L, MCV 87.5 D, MCH 25.7 L, MCHC 29.3 L D, RDW Std Deviation 52.2 H, RDW Coeff of Aldo 16.3 H, Plt Count 406, MPV 10.5, Immature Gran % (Auto) 2.500 H, Neut % (Auto) 79.2 H, Lymph % (Auto) 10.1 L, [place] % (Auto) 6.9, Eos % (Auto) 1.0, Baso % (Auto) 0.3, Absolute Neuts (auto) 16.1 H, Absolute Lymphs (auto) 2.05, Nucleated RBC % 0.1 05/20/21 09:13: Sodium 136, Potassium 3.1 L, Chloride 103, Carbon Dioxide 27.0, Anion Gap 6, BUN 12, Creatinine 0.63, Estim Creat Clear Calc 88.15, Est GFR (MDRD) Af Amer 127, Est GFR (MDRD) Non-Af 105, BUN/Creatinine Ratio 19.1, Glucose 145 H, Calcium 7.4 L, Total Bilirubin 0.30, AST 29, ALT 37, Alkaline Phosphatase 143 H, Total Protein 6.1 L, Albumin 1.7 L, Globulin 4.4 H, Albumin/Globulin Ratio 0.4 L 05/20/21 09:13: Lactic Acid 1.4 05/20/21 09:13: Blood Type O NEGATIVE, Antibody Screen NEGATIVE, Crossmatch See Detail Micro: Microbiology 05/19/21 14:22 Aspirate - Abdominal Gram Stain - Final 05/19/21 14:22 Aspirate - Abdominal Wound Culture - Preliminary Alpha Hemolytic Streptococcus 05/19/21 04:50 Urine, Clean Catch Urine Culture - Preliminary Mixed Gram Positive Organisms 05/19/21 06:43 Blood Culture (Wb) - Anticubital Right Blood Culture - Preliminary Radiography Diagnostic Testing: Radiology Impression Abscess Drainage CT 05/19/21 14:10 IMPRESSION: 1. CT directed drainage of a fluid collection using CT image guidance and image documentation as described. 2. Conscious Sedation protocol utilized with independent monitoring Electronically Signed: Abel Vee MD at 15:18 EDT , Service support , Physical Exam Const alert, oriented x3 and no apparent distress HEENT head/scalp atraumatic and moist oral mucous membranes Head and Scalp: normocephalic Eyes PERRL, EOMs intact bilaterally and conjunctivae normal Neck no lymphadenopathy, supple and no JVD Resp normal respiratory effort, no retractions, no use of accessory muscles and clear to auscultation bilaterally Cardio regular rate, regular rhythm, S1 normal heart sound, S2 normal heart sound and no murmurs GI normal to inspection, nondistended, normoactive bowel sounds, soft to palpation, non-tender and non-distended GI Narrative: left lower quadrant had drain in place. Extremity normal to inspection, full ROM and no clubbing, cyanosis or edema Peripheral Pulses: Yes pulses 2+ throughout Skin no rashes or lesions noted Neuro oriented x3 and CN's II-XII intact bilaterally Sensorium / Orientation: awake, alert and oriented to time Psych affect normal Assessment & Plan Assessment/Plan (1) Left tubo-ovarian abscess: PLAN: #LEft tubo-ovarian abscess * patient's fever had settled and temp was 98.9F at time of review * she has no clear signs of sepsis now, as she is afebrile, and is not tachycardic, tachypneic or hypotensive. * SIRS criteria is only 1 out of 4- leucocytosis. WBc has trended down to 20, from 30 on admission * on IV ceftriaxone, doxycycline and metronidazole. Will adjust antibiotics to IV vancomycin and zosyn and metronidazole. * Wound cultures growing alpha hemolytic streptococcus; sensitivities pending. * blood cultures pending. * on oxycodone for pain. * DVT prophylaxis: as per primary team. Thank you for the courtesy of the consult. We will continue to follow with you. Please do not hesitate to contact the hospitalist team if you have any questions. Charges/Coding Visit Charges Inpatient E&M: 30811 Subs Hosp L2
[2021-05-20] MEDS: Ondansetron 4 MG/2 ML Vial IV (17:54)
[2021-05-20] MEDS: NYSTATIN 500,000 UNIT/5 ML UDC 500000 UNIT PO (20:46)
[2021-05-21] MEDS: 0.9% Saline Lock 10 ML Syringe IV ×4 (00:16→22:33)
[2021-05-21] MEDS: HYDROmorphone 0.5 MG/0.5 ML SYRINGE IV ×3 (00:16→22:34)
[2021-05-21 02:47] VITALS: BP 129/81; PULSE 92; RESP 17; TEMP 37.3; O2SAT 94
[2021-05-21] MEDS: Acetaminophen 325 MG Tablet 650 MG PO ×3 (02:53→22:33)
[2021-05-21] MEDS: Ondansetron 4 MG/2 ML Vial IV ×3 (02:53→22:17)
[2021-05-21] MEDS: oxyCODONE 5 MG Tablet PO ×2 (02:53→11:50)
[2021-05-21 06:01] LABS: Absolute Neutrophil Count 14.5 X10^3/uL (2.0-7.7); Basophil# 0.05 X10^3/uL; Basophil% 0.3 % (0-1); Eosinophil# 0.23 X10^3/uL; Eosinophils% 1.3 % (0-5); Hemoglobin 8.5 g/dL (12.0-15.0); Lymphocyte % 8.4 % (19-41); Mean Corp Hgb Conc 32.7 g/dL (32-36); Mean Corpuscular Hgb 27.5 pg (27.0-32.0); Mean Corpuscular Volume 84.1 fL (81-99); Mean Platelet Vol. 9.6 fl (6.2-12.0); Monocyte# 0.96 X10^3/uL; Monocyte% 5.3 % (0-10); NRBC Flagged by Analyzer 0.1 % (0-5); Neutrophil # 14.52 X10^3/uL (2.7-7.7); Neutrophil % 80.8 % (47-70); Platelet Count 424 K/mm3 (150-450); RBC Distribution Width CV 16.1 % (11.6-14.6); RBC Distribution Width SD 49.9 fl (35.1-43.9); Red Blood Count 3.09 M/mm3 (4.2-5.4)
[2021-05-21 06:35] LABS: ALB/GLOB Ratio 0.4 RATIO (0.9-2.4); AST(SGOT) 29 U/L (15-37); Alanine Aminotransfer ALT/SGPT 37 U/L (13-56); Albumin, Serum 1.6 g/dL (3.2-5.0); Alkaline Phosphatase 146 U/L (45-117); Anion Gap 7 (5-15); BUN 9 mg/dL (7-18); BUN/Creat Ratio 17.3 RATIO (10-20); Calcium,Total 7.2 mg/dL (8.5-10.1); Chloride 103 mmol/L (98-107); Creatinine, Serum 0.52 mg/dL (0.55-1.02); EST Glomerular Filtration Rate 131 mL/min (>60); Est Glom Filt Rate - Afr Amer 158 mL/min (>60); Globulin 4.5 g/dL (2.2-4.2); Glucose 117 mg/dL (74-106); Potassium 3.3 mmol/L (3.5-5.1); Protein, Total 6.1 g/dL (6.4-8.2); Sodium Level 138 mmol/L (136-145)
[2021-05-21 08:05] VITALS: O2SAT 93
[2021-05-21] MEDS: Potassium Chloride Oral Tablet 20 MEQ 60 MEQ PO (08:35)
[2021-05-21 08:39] VITALS: BP 111/73; PULSE 88; RESP 16; TEMP 36.7; O2SAT 98
--- NOTE | 2021-05-21 08:50 | PN_ITS ---
Subjective Subjective Patient seen at bedside. Patient reports back pain has improved does have some abdominal pain but she reports her nausea is most bothersome. Patient denies any vomiting. She does report she is urinating without difficulty. She is up walking a little bit with some dizziness at times. Patient is tolerating a reg ular diet at this time. Patient offers no other concerns. Upon further questioning patient reports has regular cycles approximately 28 to 30 days. She denies any signs of vaginal infection like odorous discharge itching or burning. Patient denies any history of STDs or recent concerns. 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 Objective Data Objective Data Vital Signs: Vital Signs Temp Pulse Resp BP Pulse Ox 98.1 F 88 16 111/73 98 05/21/21 08:39 05/21/21 08:39 05/21/21 08:39 05/21/21 08:39 05/21/21 08:39 Oxygen Flow Rate (L/min) [7] 2 Oxygen Flow Rate (L/min) [6] 2 Oxygen Flow Rate (L/min) [5] 2 Oxygen Flow Rate (L/min) [4] 3 Oxygen Flow Rate (L/min) [3] 4 Oxygen Flow Rate (L/min) [2] 4 Oxygen Delivery Method [7] Nasal Cannula Oxygen Delivery Method [6] Nasal Cannula Oxygen Delivery Method [5] Nasal Cannula Oxygen Delivery Method [4] Nasal Cannula Oxygen Delivery Method [3] Nasal Cannula Oxygen Delivery Method [2] Nasal Cannula Oxygen Delivery Method [1 ( Room Air Initial Baseline)] Oxygen Delivery Method Room Air Weight: 105.054 kg Body Mass Index (BMI) 39.7 Intake & Output: Intake and Output for Last 24 Hours 05/19/21 05/20/21 05/21/21 23:59 23:59 23:59 Intake Total 3498.75 / 3498.75 4084.67 / 4084.67 1287.75 / 1287.75 Output Total 815 / 815 Balance 3468.75 / 3468.75 3269.67 / 3269.67 1277.75 / 1277.75 Lab / Micro Data Result Diagrams: 05/21/21 05:10 05/21/21 05:10 Labs: Laboratory Results - last 24 hr 05/20/21 09:13: Sodium 136, Potassium 3.1 L, Chloride 103, Carbon Dioxide 27.0, Anion Gap 6, BUN 12, Creatinine 0.63, Estim Creat Clear Calc 88.15, Est GFR (MDRD) Af Amer 127, Est GFR (MDRD) Non-Af 105, BUN/Creatinine Ratio 19.1, Glucose 145 H, Calcium 7.4 L, Total Bilirubin 0.30, AST 29, ALT 37, Alkaline Phosphatase 143 H, Total Protein 6.1 L, Albumin 1.7 L, Globulin 4.4 H, Albumin/Globulin Ratio 0.4 L 05/20/21 09:13: Lactic Acid 1.4 05/20/21 09:13: Blood Type O NEGATIVE, Antibody Screen NEGATIVE, Crossmatch See Detail 05/21/21 05:10: WBC 18.0 H, RBC 3.09 L, Hgb 8.5 L, Hct 26.0 L, MCV 84.1, MCH 27.5, MCHC 32.7 D, RDW Std Deviation 49.9 H, RDW Coeff of Aldo 16.1 H, Plt Count 424, MPV 9.6, Immature Gran % (Auto) 3.900 H, Neut % (Auto) 80.8 H, Lymph % (Auto) 8.4 L, [place] % (Auto) 5.3, Eos % (Auto) 1.3, Baso % (Auto) 0.3, Absolute Neuts (auto) 14.5 H, Absolute Lymphs (auto) 1.50, Nucleated RBC % 0.1 05/21/21 05:10: Sodium 138, Potassium 3.3 L, Chloride 103, Carbon Dioxide 28.0, Anion Gap 7, BUN 9, Creatinine 0.52 L, Estim Creat Clear Calc 106.80, Est GFR (MDRD) Af Amer 158, Est GFR (MDRD) Non-Af 131, BUN/Creatinine Ratio 17.3, Glucose 117 H, Calcium 7.2 L, Total Bilirubin 0.40, AST 29, ALT 37, Alkaline Phosphatase 146 H, Total Protein 6.1 L, Albumin 1.6 L, Globulin 4.5 H, Albumin/Globulin Ratio 0.4 L Micro: Microbiology 05/19/21 14:22 Aspirate - Abdominal Gram Stain - Final 05/19/21 14:22 Aspirate - Abdominal Wound Culture - Final Streptococcus intermedius 05/19/21 06:46 Blood Culture (Wb) - Left Hand Blood Culture - Preliminary No growth in 48 hours. 05/19/21 06:43 Blood Culture (Wb) - Anticubital Right Blood Culture - Preliminary Coag Negative Staph 05/19/21 04:50 Urine, Clean Catch Urine Culture - Preliminary Mixed Gram Positive Organisms Physical Exam Const alert and oriented x3 General Appearance: cooperative GI Palpation: soft and tender other (diffuse tenderness. no rebound and no guarding noted. DARIUS drain on left- small amout of serous fluid. ) Assessment & Plan Assessment/Plan (1) Anemia: QUALIFIERS: Anemia type: unspecified type Qualified Code(s): D64.9 - Anemia, unspecified PLAN: chronic anemia- hemoglobin stable at this time (2) Sepsis: QUALIFIERS: Sepsis type: sepsis due to unspecified organism Sepsis acute organ dysfunction status: unspecified Qualified Code(s): A41.9 - Sepsis, unspecified organism PLAN: has remained afebrile, VS stable at this time. CULTURES pending (3) Left tubo-ovarian abscess: PLAN: IR drainage performed- DARIUS on LLQ- small amount of serous fluid noted. CULTURES PENDING (4) Leukocytosis: QUALIFIERS: Leukocytosis type: unspecified Qualified Code(s): D72.829 - Elevated white blood cell count, unspecified PLAN: continue Zosyn and vanocmycin. WBC trending down. Reviewed possibility of further surgical intervention if symptoms do not patrick nue to improve Medicine consulting - will continue with recommendations labs for 05/22/21 ordered
[2021-05-21 09:39] LABS: Lactic Acid 1.2 mmol/L (0.4-1.9)
[2021-05-21] MEDS: 0.9% Normal Saline 1,000 ML 125 ML IV ×2 (09:51→22:20)
[2021-05-21] MEDS: metroNIDAZOLE 500 MG/100 ML BAG 100 MG IV ×2 (09:51→22:22)
[2021-05-21] MEDS: NYSTATIN 500,000 UNIT/5 ML UDC 500000 UNIT PO ×3 (09:52→22:33)
--- NOTE | 2021-05-21 11:53 | PN.HOSP_ITS ---
Subjective Subjective Patient seen and examined. She still complains of some mild abdominal pain; she says her drain hasnt had much output. Review of systems is otherwise negative. Objective Data Objective Data Vital Signs: Vital Signs Temp Pulse Resp BP Pulse Ox 98.1 F 88 16 111/73 98 05/21/21 08:39 05/21/21 08:39 05/21/21 08:39 05/21/21 08:39 05/21/21 08:39 Oxygen Flow Rate (L/min) [7] 2 Oxygen Flow Rate (L/min) [6] 2 Oxygen Flow Rate (L/min) [5] 2 Oxygen Flow Rate (L/min) [4] 3 Oxygen Flow Rate (L/min) [3] 4 Oxygen Flow Rate (L/min) [2] 4 Oxygen Delivery Method [7] Nasal Cannula Oxygen Delivery Method [6] Nasal Cannula Oxygen Delivery Method [5] Nasal Cannula Oxygen Delivery Method [4] Nasal Cannula Oxygen Delivery Method [3] Nasal Cannula Oxygen Delivery Method [2] Nasal Cannula Oxygen Delivery Method [1 ( Room Air Initial Baseline)] Oxygen Delivery Method Room Air Weight: 231 lb 9.671 oz Body Mass Index (BMI) 39.7 Intake & Output: Intake and Output for Last 24 Hours 05/19/21 05/20/21 05/21/21 23:59 23:59 23:59 Intake Total 3498.75 / 3498.75 4084.67 / 4084.67 2506.50 / 2506.50 Output Total 30 / 30 815 / 815 Balance 3468.75 / 3468.75 3269.67 / 3269.67 2496.50 / 2496.50 Lab / Micro Data Result Diagrams: 05/21/21 05:10 05/21/21 05:10 Labs: Laboratory Results - last 24 hr 05/20/21 09:13: Blood Type O NEGATIVE, Antibody Screen NEGATIVE, Crossmatch See Detail 05/21/21 05:10: WBC 18.0 H, RBC 3.09 L, Hgb 8.5 L, Hct 26.0 L, MCV 84.1, MCH 27.5, MCHC 32.7 D, RDW Std Deviation 49.9 H, RDW Coeff of Aldo 16.1 H, Plt Count 424, MPV 9.6, Immature Gran % (Auto) 3.900 H, Neut % (Auto) 80.8 H, Lymph % (Auto) 8.4 L, [place] % (Auto) 5.3, Eos % (Auto) 1.3, Baso % (Auto) 0.3, Absolute Neuts (auto) 14.5 H, Absolute Lymphs (auto) 1.50, Nucleated RBC % 0.1 05/21/21 05:10: Sodium 138, Potassium 3.3 L, Chloride 103, Carbon Dioxide 28.0, Anion Gap 7, BUN 9, Creatinine 0.52 L, Estim Creat Clear Calc 106.80, Est GFR (MDRD) Af Amer 158, Est GFR (MDRD) Non-Af 131, BUN/Creatinine Ratio 17.3, Glucose 117 H, Calcium 7.2 L, Total Bilirubin 0.40, AST 29, ALT 37, Alkaline Phosphatase 146 H, Total Protein 6.1 L, Albumin 1.6 L, Globulin 4.5 H, Albumin/Globulin Ratio 0.4 L 05/21/21 05:10: Sodium Cancelled, Potassium Cancelled, Chloride Cancelled, Carbon Dioxide Cancelled, Anion Gap Cancelled, BUN Cancelled, Creatinine Cancelled, Est GFR (MDRD) Af Amer Cancelled, Est GFR (MDRD) Non-Af Cancelled, BUN/Creatinine Ratio Cancelled, Glucose Cancelled, Calcium Cancelled, C-React Prot Ext Range 222.00 H 05/21/21 09:04: Lactic Acid 1.2 Micro: Microbiology 05/19/21 04:50 Urine, Clean Catch Urine Culture - Final Mixed Gram Positive Organisms 05/19/21 14:22 Aspirate - Abdominal Gram Stain - Final 05/19/21 14:22 Aspirate - Abdominal Wound Culture - Final Streptococcus intermedius 05/19/21 06:46 Blood Culture (Wb) - Left Hand Blood Culture - Preliminary No growth in 48 hours. 05/19/21 06:43 Blood Culture (Wb) - Anticubital Right Blood Culture - Prelim inary Coag Negative Staph Physical Exam Const alert, oriented x3 and no apparent distress Exam Limitations: no limitations HEENT head/scalp atraumatic and moist oral mucous membranes Eyes PERRL, EOMs intact bilaterally and conjunctivae normal Neck no lymphadenopathy, supple and no JVD Resp normal respiratory effort, no retractions, no use of accessory muscles and clear to auscultation bilaterally Cardio regular rate, regular rhythm, S1 normal heart sound, S2 normal heart sound and no murmurs GI normal to inspection, nondistended, normoactive bowel sounds, soft to palpation, non-tender and non-distended GI Narrative: left lower quadrant had drain in place. Extremity normal to inspection, full ROM and no clubbing, cyanosis or edema Skin no rashes or lesions noted Neuro oriented x3 and CN's II-XII intact bilaterally Sensorium / Orientation: awake, alert and oriented to time Psych affect normal Assessment & Plan Assessment/Plan (1) Left tubo-ovarian abscess: PLAN: #LEft tubo-ovarian abscess * wbc is down to 17 today. * on IV vanc and zosyn as well as metronidazole * blood cultures growing coagulase negative staph in 1 out of 2 samples. * wound cultures growing Strep intermedius sensitive to cefriaxone and vancomycin. anerobic cultures pending. * on oxycodone for pain. * will dc metronidazole and zosyn, and continue on IV vancomycin. * * DVT prophylaxis: SCDs Charges/Coding Visit Charges Inpatient E&M: 31412 Subs Hosp L2
[2021-05-21 14:50] VITALS: BP 111/96; PULSE 94; RESP 16; TEMP 37.3; O2SAT 97
[2021-05-21 22:25] VITALS: BP 139/78; PULSE 97; RESP 18; TEMP 37.7; O2SAT 98
[2021-05-21 23:09] LABS: Vancomycin, Trough Level 16.7 ug/mL (5.0-15.0)
--- NOTE | 2021-05-22 00:55 | PCM.RX.CS ---
Consult Pharmacy has been consulted to manage selected antiobiotic: Vancomycin Type of Consult: Follow-up Labs: Sodium 138 mmol/L (136-145) 05/21/21 05:10 Sodium Cancelled 05/21/21 05:10 Potassium 3.3 mmol/L (3.5-5.1) L 05/21/21 05:10 Potassium Cancelled 05/21/21 05:10 Chloride 103 mmol/L (98-107) 05/21/21 05:10 Chloride Cancelled 05/21/21 05:10 Carbon Dioxide 28.0 mmol/L (21.0-32.0) 05/21/21 05:10 Carbon Dioxide Cancelled 05/21/21 05:10 Anion Gap 7 (5-15) 05/21/21 05:10 Anion Gap Cancelled 05/21/21 05:10 BUN 9 mg/dL (7-18) 05/21/21 05:10 BUN Cancelled 05/21/21 05:10 Creatinine 0.52 mg/dL (0.55-1.02) L 05/21/21 05:10 Creatinine Cancelled 05/21/21 05:10 Est GFR (MDRD) Af Amer 158 mL/min (>60) 05/21/21 05:10 Est GFR (MDRD) Af Amer Cancelled 05/21/21 05:10 Est GFR (MDRD) Non-Af 131 mL/min (>60) 05/21/21 05:10 Est GFR (MDRD) Non-Af Cancelled 05/21/21 05:10 BUN/Creatinine Ratio 17.3 RATIO (10-20) 05/21/21 05:10 BUN/Creatinine Ratio Cancelled 05/21/21 05:10 Glucose 117 mg/dL (74-106) H 05/21/21 05:10 Glucose Cancelled 05/21/21 05:10 Vancomycin Trough 16.7 ug/mL (5.0-15.0) H 05/21/21 22:23 Microbiology: Microbiology 05/19/21 04:50 Urine, Clean Catch Urine Culture - Final Mixed Gram Positive Organisms 05/19/21 14:22 Aspirate - Abdominal Gram Stain - Final 05/19/21 14:22 Aspirate - Abdominal Wound Culture - Final Streptococcus intermedius 05/19/21 06:46 Blood Culture (Wb) - Left Hand Blood Culture - Preliminary No growth in 48 hours. 10/22/21 06:43 Blood Culture (Wb) - Anticubital Right Blood Culture - Preliminary Coag Negative Staph Goal Trough: 15-20 mcg/mL Pharmacy Plan for Drug Dosing: Pharmacy Service will continue to monitor and adjust dosing as required. TROUGH 16.7 AT 11.5HRS NO CHANGES FOLLOW UP TROUGH IN 2 DAYS Follow-Up Labs: Trough Vancomycin Labs to be done on [date and time ordered]: 05/23 @ 8217
[2021-05-22 03:11] VITALS: BP 124/82; PULSE 85; RESP 17; TEMP 36.8; O2SAT 95
[2021-05-22] MEDS: Ondansetron 4 MG/2 ML Vial IV ×2 (08:03→16:49)
[2021-05-22] MEDS: 0.9% Saline Lock 10 ML Syringe IV ×2 (08:08→11:56)
[2021-05-22 08:11] VITALS: BP 131/70; PULSE 85; RESP 18; TEMP 36.4; O2SAT 95
[2021-05-22] MEDS: HYDROmorphone 0.5 MG/0.5 ML SYRINGE IV ×3 (08:28→18:00)
[2021-05-22 09:33] LABS: Absolute Neutrophil Count 14.7 X10^3/uL (2.0-7.7); Basophil# 0.05 X10^3/uL; Basophil% 0.3 % (0-1); Eosinophil# 0.08 X10^3/uL; Eosinophils% 0.5 % (0-5); Hemoglobin 8.7 g/dL (12.0-15.0); Lymphocyte % 5.8 % (19-41); Mean Corp Hgb Conc 31.1 g/dL (32-36); Mean Corpuscular Hgb 26.4 pg (27.0-32.0); Mean Corpuscular Volume 84.8 fL (81-99); Mean Platelet Vol. 9.3 fl (6.2-12.0); Monocyte# 0.82 X10^3/uL; Monocyte% 4.7 % (0-10); NRBC Flagged by Analyzer 0.1 % (0-5); Neutrophil # 14.67 X10^3/uL (2.7-7.7); Neutrophil % 84.9 % (47-70); Platelet Count 496 K/mm3 (150-450); RBC Distribution Width CV 16.4 % (11.6-14.6); RBC Distribution Width SD 51.1 fl (35.1-43.9); White Blood Count 17.3 K/mm3 (4.4-11.0)
[2021-05-22] MEDS: metroNIDAZOLE 500 MG/100 ML BAG 100 MG IV (09:41)
[2021-05-22] MEDS: NYSTATIN 500,000 UNIT/5 ML UDC 500000 UNIT PO (09:41)
[2021-05-22 09:55] LABS: Lactic Acid 0.8 mmol/L (0.4-1.9)
[2021-05-22 09:59] LABS: Anion Gap 8 (5-15); BUN 10 mg/dL (7-18); BUN/Creat Ratio 9.4 RATIO (10-20); Calcium,Total 7.2 mg/dL (8.5-10.1); Chloride 107 mmol/L (98-107); Creatinine, Serum 1.06 mg/dL (0.55-1.02); EST Glomerular Filtration Rate 57 mL/min (>60); Est Glom Filt Rate - Afr Amer 70 mL/min (>60); Estimated Creatinine Clearance 52.39 ml/min; Glucose 109 mg/dL (74-106); Potassium 3.4 mmol/L (3.5-5.1); Sodium Level 141 mmol/L (136-145)
[2021-05-22] MEDS: 0.9% Normal Saline 1,000 ML 125 ML IV ×2 (11:51→23:34)
--- NOTE | 2021-05-22 12:20 | PN.HOSP_ITS ---
Subjective Subjective Patient seen and examined. She still complains of some pain in her left lower quadrant. So drain has had minimal output on abdomen emptied since yesterday. Review of systems otherwise negative. She denies any fever or chills. Vitals have essentially remained stable. WBC is 17.3 today. Objective Data Objective Data Vital Signs: Vital Signs Temp Pulse Resp BP Pulse Ox 97.6 F L 85 18 131/70 H 95 05/22/21 08:11 05/22/21 08:11 05/22/21 08:11 05/22/21 08:11 05/22/21 08:11 Oxygen Flow Rate (L/min) [7] 2 Oxygen Flow Rate (L/min) [6] 2 Oxygen Flow Rate (L/min) [5] 2 Oxygen Flow Rate (L/min) [4] 3 Oxygen Flow Rate (L/min) [3] 4 Oxygen Flow Rate (L/min) [2] 4 Oxygen Delivery Method [7] Nasal Cannula Oxygen Delivery Method [6] Nasal Cannula Oxygen Delivery Method [5] Nasal Cannula Oxygen Delivery Method [4] Nasal Cannula Oxygen Delivery Method [3] Nasal Cannula Oxygen Delivery Method [2] Nasal Cannula Oxygen Delivery Method [1 ( Room Air Initial Baseline)] Oxygen Delivery Method Room Air Weight: 231 lb 9.671 oz Body Mass Index (BMI) 39.7 Intake & Output: Intake and Output for Last 24 Hours 05/20/21 05/21/21 05/22/21 23:59 23:59 23:59 Intake Total 4084.67 / 4084.67 4937.34 / 4937.34 2439.16 / 2439.16 Output Total 815 / 815 110 / 110 450 / 450 Balance 3269.67 / 3269.67 4827.34 / 4827.34 / 16 Lab / Micro Data Result Diagrams: 05/22/21 09:10 05/22/21 09:10 Labs: Laboratory Results - last 24 hr 05/21/21 22:23: Vancomycin Trough 16.7 H 05/22/21 09:10: WBC 17.3 H, RBC 3.30 L, Hgb 8.7 L, Hct 28.0 L, MCV 84.8, MCH 26.4 L, MCHC 31.1 L, RDW Std Deviation 51.1 H, RDW Coeff of Aldo 16.4 H, Plt Count 496 H, MPV 9.3, Immature Gran % (Auto) 3.800 H, Neut % (Auto) 84.9 H, Lymph % (Auto) 5.8 L, [place] % (Auto) 4.7, Eos % (Auto) 0.5, Baso % (Auto) 0.3, Absolute Neuts (auto) 14.7 H, Absolute Lymphs (auto) 1.00, Nucleated RBC % 0.1 05/22/21 09:10: Sodium 141, Potassium 3.4 L, Chloride 107, Carbon Dioxide 26.0, Anion Gap 8, BUN 10, Creatinine 1.06 H, Estim Creat Clear Calc 52.39, Est GFR (MDRD) Af Amer 70, Est GFR (MDRD) Non-Af 57 L, BUN/Creatinine Ratio 9.4 L, Glucose 109 H, Calcium 7.2 L, C-React Prot Ext Range 171.00 H 05/22/21 09:10: Lactic Acid 0.8 Micro: Microbiology 05/19/21 14:22 Aspirate - Abdominal Gram Stain - Final 05/19/21 14:22 Aspirate - Abdominal Wound Culture - Final Streptococcus intermedius 05/19/21 14:22 Aspirate - Abdominal Anaerobic Culture - Preliminary 05/19/21 04:50 Urine, Clean Catch Urine Culture - Final Mixed Gram Positive Organisms 05/19/21 06:46 Blood Culture (Wb) - Left Hand Blood Culture - Preliminary No growth in 48 hours. 05/19/21 06:43 Blood Culture (Wb) - Anticubital Right Blood Culture - Prel iminary Coag Negative Staph Radiography Diagnostic Testing: Radiology Impression Abscess Drainage CT 05/19/21 14:10 IMPRESSION: 1. CT directed drainage of a fluid collection using CT image guidance and image documentation as described. 2. Conscious Sedation protocol utilized with independent monitoring Electronically Signed: Abel Vee MD at 15:18 EDT , Service support , Physical Exam Const alert, oriented x3 and no apparent distress Exam Limitations: no limitations HEENT head/scalp atraumatic and moist oral mucous membranes Head and Scalp: normocephalic Eyes PERRL, EOMs intact bilaterally and conjunctivae normal Neck no lymphadenopathy, supple and no JVD Resp normal respiratory effort, no retractions, no use of accessory muscles and clear to auscultation bilaterally Cardio regular rate, regular rhythm, S1 normal heart sound, S2 normal heart sound and no murmurs GI normal to inspection, nondistended, normoactive bowel sounds, soft to palpation, non-tender and non-distended GI Narrative: left lower quadrant has drain in place. Minimal drainage output. Extremity normal to inspection, full ROM and no clubbing, cyanosis or edema Peripheral Pulses: Yes pulses 2+ throughout Skin no rashes or lesions noted Neuro oriented x3 and CN's II-XII intact bilaterally Sensorium / Orientation: awake, alert and oriented to time Psych affect normal Assessment & Plan Assessment/Plan (1) Left tubo-ovarian abscess: PLAN: #LEft tubo-ovarian abscess * wbc is down to 17.3 today. * on IV vanc and zosyn as well as metronidazole * blood cultures growing coagulase negative staph in 1 out of 2 samples. * wound cultures growing Strep intermedius sensitive to cefriaxone and vancomycin. anerobic cultures pending. * on oxycodone for pain. * on IV vancomycin and metronidazole. * ID consult recommended. Primary team wants to hold off on ID consult now, and will decide if patient may benefit from surgery. * DVT prophylaxis: SCDs Charges/Coding Visit Charges Inpatient E&M: 19337 Subs Hosp L2
[2021-05-22] MEDS: proMETHazine 25 MG/ML Syringe 12.5 MG IM (12:36)
--- NOTE | 2021-05-22 12:50 | PCM.PROGNOTE ---
Subjective Subjective Patient seen at bedside, reports pain in the left lower quadrant as well as nausea. Patient denies any vomiting but does have dry heaves at times. Patient reports is having soft bowel movements. Denies any fevers or chills. Objective Data Objective Data Vital Signs: Vital Signs Temp Pulse Resp BP Pulse Ox 97.6 F L 85 18 131/70 H 95 05/22/21 08:11 05/22/21 08:11 05/22/21 08:11 05/22/21 08:11 05/22/21 08:11 Oxygen Flow Rate (L/min) [7] 2 Oxygen Flow Rate (L/min) [6] 2 Oxygen Flow Rate (L/min) [5] 2 Oxygen Flow Rate (L/min) [4] 3 Oxygen Flow Rate (L/min) [3] 4 Oxygen Flow Rate (L/min) [2] 4 Oxygen Delivery Method [7] Nasal Cannula Oxygen Delivery Method [6] Nasal Cannula Oxygen Delivery Method [5] Nasal Cannula Oxygen Delivery Method [4] Nasal Cannula Oxygen Delivery Method [3] Nasal Cannula Oxygen Delivery Method [2] Nasal Cannula Oxygen Delivery Method [1 ( Room Air Initial Baseline)] Oxygen Delivery Method Room Air Weight: 105.054 kg Body Mass Index (BMI) 39.7 Intake & Output: Intake and Output for Last 24 Hours 05/20/21 05/21/21 05/22/21 23:59 23:59 23:59 Intake Total 4084.67 / 4084.67 4937.34 / 4937.34 2439.16 / 2439.16 Output Total 815 / 815 110 / 110 450 / 450 Balance 3269.67 / 3269.67 4827.34 / 4827.34 1988.16 / 1988.16 Lab / Micro Data Result Diagrams: 05/22/21 09:10 05/22/21 09:10 Labs: Laboratory Results - last 24 hr 05/21/21 22:23: Vancomycin Trough 16.7 H 05/22/21 09:10: WBC 17.3 H, RBC 3.30 L, Hgb 8.7 L, Hct 28.0 L, MCV 84.8, MCH 26.4 L, MCHC 31.1 L, RDW Std Deviation 51.1 H, RDW Coeff of Aldo 16.4 H, Plt Count 496 H, MPV 9.3, Immature Gran % (Auto) 3.800 H, Neut % (Auto) 84.9 H, Lymph % (Auto) 5.8 L, [place] % (Auto) 4.7, Eos % (Auto) 0.5, Baso % (Auto) 0.3, Absolute Neuts (auto) 14.7 H, Absolute Lymphs (auto) 1.00, Nucleated RBC % 0.1 05/22/21 09:10: Sodium 141, Potassium 3.4 L, Chloride 107, Carbon Dioxide 26.0, Anion Gap 8, BUN 10, Creatinine 1.06 H, Estim Creat Clear Calc 52.39, Est GFR (MDRD) Af Amer 70, Est GFR (MDRD) Non-Af 57 L, BUN/Creatinine Ratio 9.4 L, Glucose 109 H, Calcium 7.2 L, C-React Prot Ext Range 171.00 H 05/22/21 09:10: Lactic Acid 0.8 Micro: Microbiology 05/19/21 14:22 Aspirate - Abdominal Gram Stain - Final 05/19/21 14:22 Aspirate - Abdominal Wound Culture - Final Streptococcus intermedius 05/19/21 14:22 Aspirate - Abdominal Anaerobic Culture - Preliminary 05/19/21 04:50 Urine, Clean Catch Urine Culture - Final Mixed Gram Positive Organisms 05/19/21 06:46 Blood Culture (Wb) - Left Hand Blood Culture - Preliminary No growth in 48 hours. 05/19/21 06:43 Blood Culture (Wb) - Anticubital Right Blood Culture - Preliminary Coag Negative Staph Radiography Diagnostic Testing: Radiology Impression Abscess Drainage CT 05/19/21 14:10 IMPRESSION: 1. CT directed drainage of a fluid collection using CT image guidance and image documentation as described. 2. Conscious Sedation protocol utilized with independent monitoring Electronically Signed: Abel Vee MD at 15:18 EDT , Service support , Physical Exam Const alert, oriented x3 and well nourished General Appearance: cooperative GI soft to palpation and non-distended GI Narrative: No rebound, no guarding. DARIUS in place left lower quadrant minimal serous discharge. Assessment & Plan Assessment/Plan (1) Anemia: QUALIFIERS: Anemia type: unspecified type Qualified Code(s): D64.9 - Anemia, unspecified PLAN: hemoglobin stable (2) Sepsis: QUALIFIERS: Sepsis type: sepsis due to unspecified organism Sepsis acute organ dysfunction status: unspecified Qualified Code(s): A41.9 - Sepsis, unspecified organism (3) Leukocytosis: QUALIFIERS: Leukocytosis type: unspecified Qualified Code(s): D72.829 - Elevated white blood cell count, unspecified PLAN: continue to monitor- downward trend noted. (4) Left tubo-ovarian abscess: PLAN: possible Bowel source vs TOA- due to strep intermedius growth. (5) Positive blood culture: PLAN: strep intermedius- sensitive to vancomycin. continue IV ABX at this time Reviewed with patient- possible ID consult but at this time cultures sensitive to Vanco Reviewed this is likely Bowel source as she is low risk for TOA and with growth this is more c/w possible Rupture diverticulum. Surgical intervention possible if no continued improvement- would need GEN surgery to assist in case and would likely need DEN/BSO. Also reviewed- if WBC continues to trend down and symptoms improve could consider Dc home on PO abx and then follow up with [facility] or [facility] for surgical intervention. MAY CONSIDER ID consult- will await results of other cultures and sensitivities Nausea- Add IM phenergan. not candidate for dc home due to nausea and ability to tolerate PO ABX.
--- NOTE | 2021-05-22 13:10 | PCM.RX.CS ---
Consult Pharmacy has been consulted to manage selected antiobiotic: Vancomycin Type of Consult: Follow-up Prior Doses of Antibiotics Received/Current Regimen: Currently on 1750mg iv q12h. Labs: Sodium 141 mmol/L (136-145) 05/22/21 09:10 Potassium 3.4 mmol/L (3.5-5.1) L 05/22/21 09:10 Chloride 107 mmol/L (98-107) 05/22/21 09:10 Carbon Dioxide 26.0 mmol/L (21.0-32.0) 05/22/21 09:10 Anion Gap 8 (5-15) 05/22/21 09:10 BUN 10 mg/dL (7-18) 05/22/21 09:10 Creatinine 1.06 mg/dL (0.55-1.02) H 05/22/21 09:10 Est GFR (MDRD) Af Amer 70 mL/min (>60) 05/22/21 09:10 Est GFR (MDRD) Non-Af 57 mL/min (>60) L 05/22/21 09:10 BUN/Creatinine Ratio 9.4 RATIO (10-20) L 05/22/21 09:10 Glucose 109 mg/dL (74-106) H 05/22/21 09:10 Vancomycin Trough 16.7 ug/mL (5.0-15.0) H 05/21/21 22:23 Microbiology: Microbiology 05/19/21 14:22 Aspirate - Abdominal Gram Stain - Final 05/19/21 14:22 Aspirate - Abdominal Wound Culture - Final Streptococcus intermedius 05/19/21 14:22 Aspirate - Abdominal Anaerobic Culture - Preliminary 05/19/21 04:50 Urine, Clean Catch Urine Culture - Final Mixed Gram Positive Organisms 05/19/21 06:46 Blood Culture (Wb) - Left Hand Blood Culture - Preliminary No growth in 48 hours. 05/19/21 06:43 Blood Culture (Wb) - Anticubital Right Blood Culture - Preliminary Coag Negative Staph Weight used for dosin kg Estimated Creatinine Clearance: 52ml/min Goal Trough: 15-20 mcg/mL Pharmacy Plan for Drug Dosing: Cr changed from 0.52 to 1.06 with CrCl from ~88ml/min to 52ml/min. Will continue same dose and freq. but get a trough level earlier. Has been ordered for 05.23.21 in AM. Pharmacy Service will continue to monitor and adjust dosing as required. Follow-Up Labs: Trough Vancomycin - 05.23.21@1030 before 1100 dose
--- NOTE | 2021-05-22 13:18 | CASEMGMT ---
SW met w/pt as physician had reported pt is depressed. Pt's present as well. SW spoke w/pt in regard to her mood, offered support. Pt explains that she is having health issues, and her is also having issues. She explains just got out of the hospital, had been hospitalized for 6 days for a blood infection. He is also receiving radiation therapy. He got home and then she ended up coming in to the hospital. They have three children together, ages 19, 17, and 15. The 19 year old is in and out, the younger two are in high school. Pt explains the 17 year old is a senior and very busy, they are just trying to support her in all she is doing her senior year. Pt's also has an older daughter in [place] who offered to come stay w/pt's , pt was encouraging to follow up on this. SW offered support to both pt and for all of the health issues they are having, let them both know SW remains available for support to them. Pt states that this current mood is related to all of the health issues, and that she was not feeling down before all of this. SW did provide a list of mental health agencies local to the area should either of them find it helpful. SW remains available to pt and spouse if social service needs arise. WILLIS Hui
[2021-05-22] MEDS: Metoclopramide 10 MG/2 ML Vial 5 MG IV ×2 (14:16→21:43)
[2021-05-22 14:20] VITALS: BP 129/71; PULSE 94; RESP 16; TEMP 37.3; O2SAT 95
--- NOTE | 2021-05-22 15:18 | NURSING ---
reviewed charting by Jason Lyn LPN
--- NOTE | 2021-05-22 15:35 | CON.PCM.ID_ITS ---
Assessment & Plan Assessment/Plan (1) Left tubo-ovarian abscess: PLAN: Single bcx with CoNS, consistent with contamination. Drain placed 05/19, fluid cx with strep. Gram stain with heavy GNR. Currently on vanc/flagyl. Wbc improved. Is covid vaccinated. Would benefit from having some gram negative coverage. Will stop vanc and flagyl. Restart zosyn. Plan on po abx at discharge if she continues to improve. Will follow, thank you (2) Positive blood culture: HPI Consult Data Date of Consult: 05/22/21 HPI Narrative HPI Narrative: SAQIB MELGAR, is a 56 F who presented 05/19 to ED with 1-2 days progressive lower abd pain, nausea. Pain was severe, aching. No inciting event. Developed some fever, chills. Has had covid vaccine. CT done, showed abscess. Given ceftriaxone/doxy, changed to vanc/zosyn, aspiration done, now on vanc/flagyl. Abd still some soreness. Full ROS performed and neg except as noted above. PFSH Home Medications NK 05/19/21 [History Last Taken Unknown] Allergy/AdvReac Type Severity Reaction Status Date / Time No Known Allergies Allergy Verified 06/02/17 11:03 Surgical History (Updated 05/19/21 @ 12:18 by Leilani Merritt) History of cholecystectomy Social History Smoking Status: Never smoker Physical Exam Const alert and no apparent distress General Appearance: cooperative Exam Limitations: no limitations HEENT normocephalic and head/scalp atraumatic Eyes PERRL and EOMs intact bilaterally Neck supple and No nodes Resp normal air movement and clear to auscultation bilaterally Cardio regular rate and regular rhythm GI GI Narrative: mild lower abd soreness, LLQ drain in place Palpation: tender Extremity no clubbing, cyanosis or edema Skin no rashes or lesions noted Neuro CN's II-XII intact bilaterally Lab / Micro Data Result Diagrams: 05/22/21 09:10 05/22/21 09:10 Labs: Laboratory Results - last 24 hr 05/21/21 22:23: Vancomycin Trough 16.7 H 05/22/21 09:10: WBC 17.3 H, RBC 3.30 L, Hgb 8.7 L, Hct 28.0 L, MCV 84.8, MCH 26.4 L, MCHC 31.1 L, RDW Std Deviation 51.1 H, RDW Coeff of Aldo 16.4 H, Plt Count 496 H, MPV 9.3, Immature Gran % (Auto) 3.800 H, Neut % (Auto) 84.9 H, Lymph % (Auto) 5.8 L, [place] % (Auto) 4.7, Eos % (Auto) 0.5, Baso % (Auto) 0.3, Absolute Neuts (auto) 14.7 H, Absolute Lymphs (auto) 1.00, Nucleated RBC % 0.1 05/22/21 09:10: Sodium 141, Potassium 3.4 L, Chloride 107, Carbon Dioxide 26.0, Anion Gap 8, BUN 10, Creatinine 1.06 H, Estim Creat Clear Calc 52.39, Est GFR (MDRD) Af Amer 70, Est GFR (MDRD) Non-Af 57 L, BUN/Creatinine Ratio 9.4 L, Glucose 109 H, Calcium 7.2 L, C-React Prot Ext Range 171.00 H 05/22/21 09:10: Lactic Acid 0.8 Micro: Microbiology 05/19/21 14:22 Aspirate - Abdominal Gram Stain - Final 05/19/21 14:22 Aspirate - Abdominal Wound Culture - Final Streptococcus intermedius 05/19/21 14:22 Aspirate - Abdominal Anaerobic Culture - Preliminary Radiology Impression Abscess Drainage CT 05/19/21 14:10 IMPRESSION: 1. CT directed drainage of a fluid collection using CT image guidance and image documentation as described. 2. Conscious Sedation protocol utilized with independent monitoring Electronically Signed: Abel Vee MD at 15:18 EDT , Service support ,
[2021-05-22 20:00] VITALS: BP 112/67; PULSE 97; RESP 20; TEMP 37.4; O2SAT 94
[2021-05-22] MEDS: Acetaminophen 325 MG Tablet 650 MG PO (20:08)
[2021-05-22] MEDS: Ondansetron 8 MG Tablet PO (20:34)
[2021-05-22] MEDS: oxyCODONE 5 MG Tablet PO (21:43)
[2021-05-23 02:36] VITALS: BP 119/70; PULSE 91; RESP 20; TEMP 36.8; O2SAT 97
[2021-05-23] MEDS: Ondansetron 4 MG/2 ML Vial IV (02:39)
[2021-05-23] MEDS: HYDROmorphone 0.5 MG/0.5 ML SYRINGE IV ×2 (03:03→15:07)
[2021-05-23 06:32] VITALS: BP 110/67; PULSE 87; RESP 18; TEMP 37; O2SAT 95
[2021-05-23] MEDS: 0.9% Normal Saline 1,000 ML 125 ML IV ×2 (08:07→16:47)
[2021-05-23] MEDS: Metoclopramide 10 MG/2 ML Vial 5 MG IV ×2 (08:09→15:07)
[2021-05-23] MEDS: Acetaminophen 325 MG Tablet 650 MG PO ×2 (09:20→21:26)
[2021-05-23] MEDS: 0.9% Saline Lock 10 ML Syringe IV (09:20)
[2021-05-23] MEDS: NYSTATIN 500,000 UNIT/5 ML UDC 500000 UNIT PO (12:04)
[2021-05-23 12:11] VITALS: BP 124/74; PULSE 84; RESP 16; TEMP 36.7; O2SAT 96
[2021-05-23] MEDS: Ondansetron 8 MG Tablet PO (12:18)
--- NOTE | 2021-05-23 12:18 | PN_ITS ---
Objective Data Objective Data Vital Signs: Vital Signs Temp Pulse Resp BP Pulse Ox 98.0 F 84 16 124/74 H 96 05/23/21 12:11 05/23/21 12:11 05/23/21 12:11 05/23/21 12:11 05/23/21 12:11 Oxygen Flow Rate (L/min) [7] 2 Oxygen Flow Rate (L/min) [6] 2 Oxygen Flow Rate (L/min) [5] 2 Oxygen Flow Rate (L/min) [4] 3 Oxygen Flow Rate (L/min) [3] 4 Oxygen Flow Rate (L/min) [2] 4 Oxygen Delivery Method [7] Nasal Cannula Oxygen Delivery Method [6] Nasal Cannula Oxygen Delivery Method [5] Nasal Cannula Oxygen Delivery Method [4] Nasal Cannula Oxygen Delivery Method [3] Nasal Cannula Oxygen Delivery Method [2] Nasal Cannula Oxygen Delivery Method [1 ( Room Air Initial Baseline)] Oxygen Delivery Method Room Air Weight: 231 lb 9.671 oz Body Mass Index (BMI) 39.7 Intake & Output: Intake and Output for Last 24 Hours 05/21/21 05/22/21 05/23/21 23:59 23:59 23:59 Intake Total 4937.34 / 4937.34 4499.16 / 4899.16 1912.75 / 1912.75 Output Total 110 / 110 800 / 800 600 / 600 Balance 4827.34 / 4827.34 3699.16 / 4099.16 1312.75 / 1312.75 Lab / Micro Data Result Diagrams: 05/22/21 09:10 05/22/21 09:10 Micro: Microbiology 05/19/21 14:22 Aspirate - Abdominal Gram Stain - Final 05/19/21 14:22 Aspirate - Abdominal Wound Culture - Final Streptococcus intermedius 05/19/21 14:22 Aspirate - Abdominal Anaerobic Culture - Preliminary 05/19/21 04:50 Urine, Clean Catch Urine Culture - Final Mixed Gram Positive Organisms 05/19/21 06:46 Blood Culture (Wb) - Left Hand Blood Culture - Preliminary No growth in 48 hours. 05/19/21 06:43 Blood Culture (Wb) - Anticubital Right Blood Culture - Preliminary Coag Negative Staph Physical Exam Const alert and oriented x3 Resp normal respiratory effort GI soft to palpation and non-tender Extremity no calf tenderness Neuro CN's II-XII intact bilaterally Assessment & Plan Assessment/Plan (1) Left tubo-ovarian abscess: PLAN: ID - consult yesterday by & input appreciated. Continue zosyn. Will transition to oral antibiotics when able. Labs not drawn yet today. GI - nausea slightly improved. Will try oral anti-emetics later today. reviewed with patient yesterday that this is likely Bowel source as she is low risk for TOA and with growth this is more c/w possible ruptured diverticulum. She also discussed possible need for surgical intervention possi ble if no continued improvement. Patient is not candidate for dc home until able to tolerate PO medications. Routine medical care
[2021-05-23 13:01] LABS: Absolute Lymphocyte Count 1.21 X10^3/uL (0.83-4.51); Absolute Neutrophil Count 14.2 X10^3/uL (2.0-7.7); Basophil# 0.05 X10^3/uL; Basophil% 0.3 % (0-1); Eosinophil# 0.12 X10^3/uL; Eosinophils% 0.7 % (0-5); Hematocrit 29.6 % (37-47); Hemoglobin 9.2 g/dL (12.0-15.0); Lymphocyte # 1.21 X10^3/ul (0.83-4.51); Lymphocyte % 7.3 % (19-41); Mean Corp Hgb Conc 31.1 g/dL (32-36); Mean Corpuscular Hgb 26.3 pg (27.0-32.0); Mean Corpuscular Volume 84.6 fL (81-99); Mean Platelet Vol. 9.2 fl (6.2-12.0); Monocyte# 0.81 X10^3/uL; Monocyte% 4.9 % (0-10); NRBC Flagged by Analyzer 0 % (0-5); Neutrophil # 14.17 X10^3/uL (2.7-7.7); Neutrophil % 84.9 % (47-70); Platelet Count 522 K/mm3 (150-450); RBC Distribution Width CV 16.9 % (11.6-14.6); RBC Distribution Width SD 52.6 fl (35.1-43.9); White Blood Count 16.7 K/mm3 (4.4-11.0)
[2021-05-23 13:33] LABS: AST(SGOT) 17 U/L (15-37); Alanine Aminotransfer ALT/SGPT 19 U/L (13-56); Albumin, Serum 1.4 g/dL (3.2-5.0); Alkaline Phosphatase 102 U/L (45-117); Anion Gap 9 (5-15); BUN 11 mg/dL (7-18); Bilirubin, Direct 0.13 mg/dL (0.00-0.30); Calcium,Total 7.1 mg/dL (8.5-10.1); Chloride 109 mmol/L (98-107); Creatinine, Serum 1.37 mg/dL (0.55-1.02); EST Glomerular Filtration Rate 43 mL/min (>60); Est Glom Filt Rate - Afr Amer 52 mL/min (>60); Estimated Creatinine Clearance 40.54 ml/min; Globulin 4.5 g/dL (2.2-4.2); Glucose 121 mg/dL (74-106); Potassium 3.2 mmol/L (3.5-5.1); Protein, Total 5.9 g/dL (6.4-8.2); Sodium Level 141 mmol/L (136-145)
[2021-05-23 15:26] VITALS: BP 125/76; PULSE 90; RESP 16; TEMP 37; O2SAT 98
--- NOTE | 2021-05-23 19:27 | PN.HOSP_ITS ---
Subjective Subjective Patient was seen and examined today, her white blood cell count today was 16.7, patient complains of nausea and states that she was not able to get up in the chair very much due to the nausea. Patient was seen by infectious diseases today who adjusted her antibiotic coverage. Objective Data Objective Data Vital Signs: Vital Signs Temp Pulse Resp BP Pulse Ox 98.6 F 90 16 125/76 H 98 05/23/21 15:26 05/23/21 15:26 05/23/21 15:26 05/23/21 15:26 05/23/21 15:26 Oxygen Flow Rate (L/min) [7] 2 Oxygen Flow Rate (L/min) [6] 2 Oxygen Flow Rate (L/min) [5] 2 Oxygen Flow Rate (L/min) [4] 3 Oxygen Flow Rate (L/min) [3] 4 Oxygen Flow Rate (L/min) [2] 4 Oxygen Delivery Method [7] Nasal Cannula Oxygen Delivery Method [6] Nasal Cannula Oxygen Delivery Method [5] Nasal Cannula Oxygen Delivery Method [4] Nasal Cannula Oxygen Delivery Method [3] Nasal Cannula Oxygen Delivery Method [2] Nasal Cannula Oxygen Delivery Method [1 ( Room Air Initial Baseline)] Oxygen Delivery Method Room Air Weight: 105.054 kg Body Mass Index (BMI) 39.7 Intake & Output: Intake and Output for Last 24 Hours 05/21/21 05/22/21 05/23/21 23:59 23:59 23:59 Intake Total 4937.34 / 4937.34 4499.16 / 4899.16 2912.75 / 2912.75 Output Total 110 / 110 800 / 800 700 / 700 Balance 4827.34 / 4827.34 3699.16 / 4099.16 2212.75 / 2212.75 Lab / Micro Data Result Diagrams: 05/23/21 12:45 05/23/21 12:45 Labs: Laboratory Results - last 24 hr 05/23/21 12:45: WBC 16.7 H, RBC 3.50 L, Hgb 9.2 L, Hct 29.6 L, MCV 84.6, MCH 26.3 L, MCHC 31.1 L, RDW Std Deviation 52.6 H, RDW Coeff of Aldo 16.9 H, Plt Count 522 H, MPV 9.2, Immature Gran % (Auto) 1.900 H, Neut % (Auto) 84.9 H, Lymph % (Auto) 7.3 L, [place] % (Auto) 4.9, Eos % (Auto) 0.7, Baso % (Auto) 0.3, Absolute Neuts (auto) 14.2 H, Absolute Lymphs (auto) 1.21, Nucleated RBC % 0 05/23/21 12:45: Sodium 141, Potassium 3.2 L, Chloride 109 H, Carbon Dioxide 23.0, Anion Gap 9, BUN 11, Creatinine 1.37 H, Estim Creat Clear Calc 40.54, Est GFR (MDRD) Af Amer 52 L, Est GFR (MDRD) Non-Af 43 L, BUN/Creatinine Ratio 8.0 L, Glucose 121 H, Calcium 7.1 L, Total Bilirubin 0.20, Direct Bilirubin 0.13, AST 17, ALT 19, Alkaline Phosphatase 102, C-React Prot Ext Range 148.00 H, Total Protein 5.9 L, Albumin 1.4 L, Globulin 4.5 H Micro: Microbiology 05/19/21 14:22 Aspirate - Abdominal Gram Stain - Final 05/19/21 14:22 Aspirate - Abdominal Wound Culture - Final Streptococcus intermedius 05/19/21 14:22 Aspirate - Abdominal Anaerobic Culture - Preliminary 05/19/21 04:50 Urine, Clean Catch Urine Culture - Final Mixed Gram Positive Organisms 05/19/21 06:46 Blood Culture (Wb) - Left Hand Blood Culture - Preliminary No growth in 48 hours. 05/19/21 06:43 Blood Culture (Wb) - Anticubital Right Blood Culture - Preli minary Coag Negative Staph Physical Exam Const alert, oriented x3 and no apparent distress General Appearance: cooperative, well kempt and well developed Orientation / Consciousness: awake, oriented to person, oriented to place and oriented to time HEENT normocephalic, head/scalp atraumatic and moist oral mucous membranes Head and Scalp: normocephalic Eyes PERRL, EOMs intact bilaterally and conjunctivae normal Neck nuchal rigidity, supple, no JVD, thyroid normal and no carotid bruits General: trachea midline Resp normal respiratory effort and clear to auscultation bilaterally Auscultation: Negative for rales, rhonchi or wheezes Cardio regular rate, regular rhythm, S1 normal heart sound, S2 normal heart sound, no murmurs, no rub and no gallops GI normal to inspection, nondistended, normoactive bowel sounds, soft to palpation, non-tender and non-distended Extremity no clubbing, cyanosis or edema Skin no rashes or lesions noted General Skin Exam: no breakdown Neuro oriented x3, CN's II-XII intact bilaterally, no focal motor deficits and no sensory deficits noted Sensorium / Orientation: awake and alert Speech: speech normal Psych thought process normal and affect normal Assessment & Plan Assessment/Plan (1) Left tubo-ovarian abscess: PLAN: 1. Left tubo-ovarian abscess with Streptococcus intermedius-again infectious diseases has adjusted the patient's antibiotic coverage, CBC will be repeated tomorrow #2 sepsis secondary to #1-again patient's antibiotics will be adjusted by infectious diseases Charges/Coding Visit Charges Inpatient E&M: 37460 Subs Hosp L2
[2021-05-23] MEDS: proMETHazine 25 MG Tablet 12.5 MG PO (19:58)
[2021-05-23 21:23] VITALS: BP 139/78; PULSE 93; RESP 20; TEMP 37.2; O2SAT 93
[2021-05-24 03:35] VITALS: BP 116/74; PULSE 97; RESP 20; TEMP 37; O2SAT 94
[2021-05-24] MEDS: Acetaminophen 325 MG Tablet 650 MG PO (03:35)
[2021-05-24] MEDS: proMETHazine 25 MG Tablet 12.5 MG PO ×3 (03:35→18:20)
[2021-05-24 07:36] VITALS: BP 135/83; PULSE 81; RESP 18; TEMP 36.9; O2SAT 96
[2021-05-24] MEDS: Ondansetron 8 MG Tablet PO ×3 (07:37→23:50)
--- NOTE | 2021-05-24 08:17 | PN.OBGYN_ITS ---
Subjective Subjective Patient states her pain does not feel improved and she is still persistently nauseous. She said she tolerated small amounts of p.o. yesterday but did have episodes of emesis. She denies fevers or chills. She denies leg pain. She says she has not been ambulating and she only wore the SCDs once. She appears slightly short of breath this morning and she denies shortness of breath or chest pain, and states it is hard for her to take a deep breath in because she feels swollen. Objective Data Objective Data Vital Signs: Vital Signs Temp Pulse Resp BP Pulse Ox 98.4 F 81 18 135/83 H 96 05/24/21 07:36 05/24/21 07:36 05/24/21 07:36 05/24/21 07:36 05/24/21 07:36 Oxygen Flow Rate (L/min) [7] 2 Oxygen Flow Rate (L/min) [6] 2 Oxygen Flow Rate (L/min) [5] 2 Oxygen Flow Rate (L/min) [4] 3 Oxygen Flow Rate (L/min) [3] 4 Oxygen Flow Rate (L/min) [2] 4 Oxygen Delivery Method [7] Nasal Cannula Oxygen Delivery Method [6] Nasal Cannula Oxygen Delivery Method [5] Nasal Cannula Oxygen Delivery Method [4] Nasal Cannula Oxygen Delivery Method [3] Nasal Cannula Oxygen Delivery Method [2] Nasal Cannula Oxygen Delivery Method [1 ( Room Air Initial Baseline)] Oxygen Delivery Method Room Air Weight: 231 lb 9.671 oz Body Mass Index (BMI) 39.7 Intake & Output: Intake and Output for Last 24 Hours 05/22/21 05/23/21 05/24/21 23:59 23:59 23:59 Intake Total 4499.16 / 4899.16 3716.00 / 3716.00 1172.58 / 1172.58 Output Total 800 / 800 700 / 700 20 / 20 Balance 3699.16 / 4099.16 3016.00 / 3016.00 1152.58 / 1152.58 Lab / Micro Data Result Diagrams: 05/23/21 12:45 05/23/21 12:45 Labs: Laboratory Results - last 24 hr 05/23/21 12:45: WBC 16.7 H, RBC 3.50 L, Hgb 9.2 L, Hct 29.6 L, MCV 84.6, MCH 26.3 L, MCHC 31.1 L, RDW Std Deviation 52.6 H, RDW Coeff of Aldo 16.9 H, Plt Count 522 H, MPV 9.2, Immature Gran % (Auto) 1.900 H, Neut % (Auto) 84.9 H, Lymph % (Auto) 7.3 L, [place] % (Auto) 4.9, Eos % (Auto) 0.7, Baso % (Auto) 0.3, Absolute Neuts (auto) 14.2 H, Absolute Lymphs (auto) 1.21, Nucleated RBC % 0 05/23/21 12:45: Sodium 141, Potassium 3.2 L, Chloride 109 H, Carbon Dioxide 23.0, Anion Gap 9, BUN 11, Creatinine 1.37 H, Estim Creat Clear Calc 40.54, Est GFR (MDRD) Af Amer 52 L, Est GFR (MDRD) Non-Af 43 L, BUN/Creatinine Ratio 8.0 L, Glucose 121 H, Calcium 7.1 L, Total Bilirubin 0.20, Direct Bilirubin 0.13, AST 17, ALT 19, Alkaline Phosphatase 102, C-React Prot Ext Range 148.00 H, Total Protein 5.9 L, Albumin 1.4 L, Globulin 4.5 H Micro: Microbiology 05/19/21 14:22 Aspirate - Abdominal Gram Stain - Final 05/19/21 14:22 Aspirate - Abdominal Wound Culture - Final Streptococcus intermedius 05/19/21 14:22 Aspirate - Abdominal Anaerobic Culture - Preliminary 05/19/21 04:50 Urine, Clean Catch Urine Culture - Final Mixed Gram Positive Organisms 05/19/21 06:46 Blood Culture (Wb) - Left Hand Blood Culture - Preliminary No growth in 48 hours. 05/19/21 06:43 Blood Culture (Wb) - Anticubital Right Blood Culture - Pre liminary Coag Negative Staph Physical Exam Const alert and no apparent distress GI soft to palpation and non-distended GI Narrative: Minimal diffuse tenderness, no acute peritoneal signs Extremity no calf tenderness Assessment & Plan (1) Positive blood culture: (2) DVT prophylaxis: PLAN: - Discussed with patient importance of wearing SCD's and ambulation (3) Anemia: QUALIFIERS: Anemia type: unspecified type Qualified Code(s): D64.9 - Anemia, unspecified PLAN: - S/p 1 unit PRBC's (4) Sepsis: QUALIFIERS: Sepsis type: sepsis due to unspecified organism Sepsis acute organ dysfunction status: unspecified Qualified Code(s): A41.9 - Sepsis, unspecified organism (5) Leukocytosis: QUALIFIERS: Leukocytosis type: unspecified Qualified Code(s): D72.829 - Elevated white blood cell count, unspecified PLAN: - Repeat this morning (6) Left tubo-ovarian abscess: PLAN: - Possible bowel origin - WBC improving and afebrile, but patient not subjectively improving - Patient still with N/V - Will discuss repeat imaging versus a general surgery consult versus continued observation with my partners
[2021-05-24] MEDS: NYSTATIN 500,000 UNIT/5 ML UDC 500000 UNIT PO ×4 (09:47→21:01)
[2021-05-24 13:49] VITALS: BP 143/80; PULSE 85; RESP 24; TEMP 37.1; O2SAT 98
[2021-05-24 14:05] LABS: Absolute Lymphocyte Count 1.31 X10^3/uL (0.83-4.51); Absolute Neutrophil Count 12.1 X10^3/uL (2.0-7.7); Basophil# 0.05 X10^3/uL; Basophil% 0.3 % (0-1); Eosinophil# 0.19 X10^3/uL; Eosinophils% 1.3 % (0-5); Hematocrit 27.4 % (37-47); Hemoglobin 8.7 g/dL (12.0-15.0); Lymphocyte # 1.31 X10^3/ul (0.83-4.51); Lymphocyte % 8.9 % (19-41); Mean Corp Hgb Conc 31.8 g/dL (32-36); Mean Corpuscular Hgb 26.4 pg (27.0-32.0); Mean Corpuscular Volume 83.3 fL (81-99); Mean Platelet Vol. 8.9 fl (6.2-12.0); Monocyte# 0.82 X10^3/uL; Monocyte% 5.6 % (0-10); NRBC Flagged by Analyzer 0 % (0-5); Neutrophil # 12.14 X10^3/uL (2.7-7.7); Neutrophil % 82.3 % (47-70); Platelet Count 547 K/mm3 (150-450); RBC Distribution Width CV 16.8 % (11.6-14.6); RBC Distribution Width SD 51.7 fl (35.1-43.9); Red Blood Count 3.29 M/mm3 (4.2-5.4); White Blood Count 14.7 K/mm3 (4.4-11.0)
--- NOTE | 2021-05-24 14:15 | PN_ITS ---
Progress Note At bedside to check on patient. She reports tolerating small amounts of p.o. today. She states she is still nauseous and having some pain. The drain was accidentally pulled out this morning. Initial exam she was not short of breath, but after talking about possible repeat imaging and possible surgery she began to appear more generally unwell and short of breath. I suspect some of this is related to anxiety. I discussed the patient with my partners, as well as general surgery. Discussed with the patient that given that she is not subject ively improving, will need to either repeat imaging and/or consider surgery. Discussed with a surgery she would need an open incision with a general surgeon present for surgery. Discussed possible hysterectomy, bilateral salpingoophorectomy, and any additional surgery as indicated by general surgery. Also discussed possible option of transfer to a tertiary care center if she needs surgery where she could possibly have surgery with general surgery and minimally invasive specialist. She states she would desire transfer if surgery is indicated. Also discussed that general surgery recommended a repeat CAT scan of her abdomen pelvis, and if there is still abscess present to have another drain placed. Per request of patient, talked to over the phone as well regarding repeat CT scan and possible need for surgical intervention if she continues to not improve. Discussed plan of care with medicine, who also had talked to general surgery and they recommended a repeat CT scan as well.
[2021-05-24 14:24] LABS: ALB/GLOB Ratio 0.3 RATIO (0.9-2.4); AST(SGOT) 12 U/L (15-37); Alanine Aminotransfer ALT/SGPT 15 U/L (13-56); Albumin, Serum 1.4 g/dL (3.2-5.0); Alkaline Phosphatase 84 U/L (45-117); Anion Gap 4 (5-15); BUN 9 mg/dL (7-18); BUN/Creat Ratio 6.4 RATIO (10-20); Calcium,Total 7.4 mg/dL (8.5-10.1); Chloride 112 mmol/L (98-107); Creatinine, Serum 1.41 mg/dL (0.55-1.02); EST Glomerular Filtration Rate 41 mL/min (>60); Est Glom Filt Rate - Afr Amer 50 mL/min (>60); Estimated Creatinine Clearance 39.39 ml/min; Globulin 4.3 g/dL (2.2-4.2); Glucose 100 mg/dL (74-106); Potassium 3.6 mmol/L (3.5-5.1); Protein, Total 5.7 g/dL (6.4-8.2); Sodium Level 143 mmol/L (136-145)
--- NOTE | 2021-05-24 14:33 | CASEMGMT ---
RNCM Progress Note: Patient In [facility]: [facility], [place], [facility], [facility], [facility], [facility], [facility], [facility], [facility], . Fozia Granado, ANABELLCM
--- NOTE | 2021-05-24 15:48 | PCM.PN.ID ---
Physical Exam Narrative Feeling about the same, still nausea, abd pain. No fever. Const alert General Appearance: cooperative Resp normal air movement and clear to auscultation bilaterally Cardio regular rate and regular rhythm GI Palpation: tender Skin no rashes or lesions noted ID ID: Route of nutrition/ use of supplements: [] Nutritional Intake: [] IV Site: [] Price Catheter: [] Assessment & Plan Assessment/Plan (1) Left tubo-ovarian abscess: PLAN: Single bcx with CoNS, consistent with contamination. Drain placed 05/19, fluid cx with strep. Gram stain with heavy GNR. Currently Wbc improved. Is covid vaccinated. Cont zosyn. Persistent symptoms, recommend CT abd/pelvis, may need surgery Will follow, d/w primary team (2) Positive blood culture:
--- NOTE | 2021-05-24 16:45 | CT_ITS ---
STUDY: CT ABDOMEN AND PELVIS WITH CONTRAST REASON FOR EXAM: Female, 56 years old. abdominal pain, abcess -- with oral and IV contrast RADIATION DOSAGE (If Supplied By Facility): CTDIvol = ( 15.38 ) mGy, DLP = ( 1355.64 ) mGycm TECHNIQUE: Transaxial images were obtained from the dome of the diaphragm to the symphysis pubis without oral contrast. Oral and amp; IV Gastrografin and amp; 100mL Isovue-300 was administered. Sagittal and coronal images were reconstructed. Individualized dose optimization techniques were used for this CT. COMPARISON: 05/19/2021. FINDINGS: The visualized lung bases demonstrate pleural effusions with basilar atelectasis. The visualized portions of the heart are within normal limits. 1.4 cm cyst in the liver. Status post cholecystectomy. No significant dilatation of the extrahepatic biliary system. Normal spleen. Normal pancreas. Normal bilateral adrenal glands. Normal right kidney. Normal left kidney. There is a hiatal hernia. Normal small intestine. Diverticulosis of the colon. The appendix is visualized and appears normal. Normal abdominal aorta. Normal inferior vena cava. Normal retroperitoneum. Normal urinary bladder. There is mild mesenteric thickening/fluid, new since the previous study. Mild presacral fluid. The multiloculated collection is again noted in the left adnexal area adjacent to the sigmoid colon measuring 9.6 x 5.3 cm likely an abscess. It is slightly smaller than on previous study. There is evidence of tubal ligation. Subcutaneous edema of the lateral abdominal wall bilaterally. Fatty umbilical hernia. Normal osseous structures. CT/Abdomen/Pelvis WITH Contrast IMPRESSION: Bilateral pleural effusions with basilar atelectasis. Hepatic cyst. Colonic diverticulosis. Hiatal hernia. Multiloculated abscess in the left adnexa adjacent to the sigmoid colon, slightly smaller than on previous study. New scattered fluid pockets in the abdomen and pelvis with mesenteric thickening. Fatty umbilical hernia. Electronically Signed: William Singletary DO at 18:22 EDT Tel [phone], Service support ,
[2021-05-24] MEDS: 0.9% Saline Lock 10 ML Syringe IV ×2 (17:00→18:21)
[2021-05-24 17:07] VITALS: BP 137/76; PULSE 79; RESP 24; TEMP 37; O2SAT 96
--- NOTE | 2021-05-24 18:04 | PN.HOSP_ITS ---
Subjective Subjective Patient was seen and examined today, I talked with gynecology about her care today, the patient's drain came out, she continues to feel nauseous and I reordered a CAT scan of her abdomen and pelvis today. Objective Data Objective Data Vital Signs: Vital Signs Temp Pulse Resp BP Pulse Ox 98.6 F 79 24 H 137/76 H 96 05/24/21 17:07 05/24/21 17:07 05/24/21 17:07 05/24/21 17:07 05/24/21 17:07 Oxygen Flow Rate (L/min) [7] 2 Oxygen Flow Rate (L/min) [6] 2 Oxygen Flow Rate (L/min) [5] 2 Oxygen Flow Rate (L/min) [4] 3 Oxygen Flow Rate (L/min) [3] 4 Oxygen Flow Rate (L/min) [2] 4 Oxygen Delivery Method [7] Nasal Cannula Oxygen Delivery Method [6] Nasal Cannula Oxygen Delivery Method [5] Nasal Cannula Oxygen Delivery Method [4] Nasal Cannula Oxygen Delivery Method [3] Nasal Cannula Oxygen Delivery Method [2] Nasal Cannula Oxygen Delivery Method [1 ( Room Air Initial Baseline)] Oxygen Delivery Method Room Air Weight: 115.4 kg Body Mass Index (BMI) 39.7 Intake & Output: Intake and Output for Last 24 Hours 05/22/21 05/23/21 05/24/21 23:59 23:59 23:59 Intake Total 4499.16 / 4899.16 3716.00 / 3716.00 3935.83 / 3935.83 Output Total 800 / 800 700 / 700 20 / 20 Balance 3699.16 / 4099.16 3016.00 / 3016.00 3915.83 / 3915.83 Medical Nutrition Assessment Dietitian: Malnutrition Criteria Met Start: 05/24/21 12:57 Freq: Status: Active Protocol: Document 05/24/21 12:57 AG (Rec: 05/24/21 12:57 AG [id number]) Nutrition Malnutrition Evidence of Malnutrition Exists Yes Malnutrition (severe): Acute Illness/Injury Evidenced By Suboptimal Energy Intake ( Severe),Weight Loss (Severe) Intake Problem Inadequate Oral Intake Etiology related to nausea, pain Signs/Symptoms as evidenced by poor po intake x 12 days, estimated PO intake meeting <50% of estimated nutritional needs >5 days Status Active Problem Clinical Problem Acute Disease or Injury Related Malnutrition Etiology severe, acute malnutrition r/t inadequate energy intake d/t nausea, pain Signs/Symptoms as evidenced by unintentional wt loss 18.4#/7.3% <2 weeks, estimated PO intake meeting < 50% of estimated nutritional needs >5 days Status Active Problem Recommendation Dietitian Recommendations/Changes Continue regular diet as tolerated and 4oz ensure compact 4x/day; will add 1 scoop beneprotein to smoothie if pt orders Lab / Micro Data Result Diagrams: 05/24/21 13:55 05/24/21 13:55 Labs: Laboratory Results - last 24 hr 05/24/21 13:55: WBC 14.7 H, RBC 3.29 L, Hgb 8.7 L, Hct 27.4 L, MCV 83.3, MCH 26.4 L, MCHC 31.8 L, RDW Std Deviation 51.7 H, RDW Coeff of Aldo 16.8 H, Plt Count 547 H, MPV 8.9, Immature Gran % (Auto) 1.600 H, Neut % (Auto) 82.3 H, Lymph % (Auto) 8.9 L, [place] % (Auto) 5.6, Eos % (Auto) 1.3, Baso % (Auto) 0.3, Absolute Neuts (auto) 12.1 H, Absolute Lymphs (auto) 1.31, Nucleated RBC % 0 05/24/21 13:55: Sodium 143, Potassium 3.6, Chloride 112 H, Carbon Dioxide 27.0, Anion Gap 4 L, BUN 9, Creatinine 1.41 H, Estim Creat Clear Calc 39.39, Est GFR (MDRD) Af Amer 50 L, Est GFR (MDRD) Non-Af 41 L, BUN/Creatinine Ratio 6.4 L, Glucose 100, Calcium 7.4 L, Total Bilirubin 0.30, AST 12 L, ALT 15, Alkaline Phosphatase 84, Total Protein 5.7 L, Albumin 1.4 L, Globulin 4.3 H, Albumin/Globulin Ratio 0.3 L Micro: Microbiology 05/19/21 14:22 Aspirate - Abdominal Gram Stain - Final 05/19/21 14:22 Aspirate - Abdominal Wound Culture - Final Streptococcus intermedius 05/19/21 14:22 Aspirate - Abdominal Anaerobic Culture - Final No anaerobic bacteria isolated. 05/19/21 06:43 Blood Culture (Wb) - Anticubital Right Blood Culture - Final Coag Negative Staph 05/19/21 06:46 Blood Culture (Wb) - Left Hand Blood Culture - Final No growth in 5 days. 05/19/21 04:50 Urine, Clean Catch Urine Culture - Final Mixed Gram Positive Organisms Physical Exam Const alert, oriented x3 and no apparent distress Constitutional Narrative: Patient is morbidly obese General Appearance: cooperative, well kempt and well developed Orientation / Consciousness: awake, oriented to person, oriented to place and oriented to time HEENT normocephalic, head/scalp atraumatic and moist oral mucous membranes Head and Scalp: normocephalic Eyes PERRL, EOMs intact bilaterally and conjunctivae normal Neck nuchal rigidity, supple, no JVD and thyroid normal General: trachea midline Resp normal respiratory effort, no retractions, no use of accessory muscles and clear to auscultation bilaterally Auscultation: Negative for rales, rhonchi or wheezes Cardio regular rate, regular rhythm, S1 normal heart sound, S2 normal heart sound, no murmurs, no rub and no gallops GI normal to inspection, nondistended, normoactive bowel sounds and soft to palpation GI Narrative: Patient has mild diffuse abdominal tenderness, no rebound abdominal tenderness was noted, patient is morbidly obese Extremity no clubbing, cyanosis or edema Skin no rashes or lesions noted and skin turgor normal General Skin Exam: no breakdown Neuro oriented x3, CN's II-XII intact bilaterally, no focal motor deficits and no sensory deficits noted Sensorium / Orientation: awake and alert Speech: speech normal Psych thought process normal and affect normal Assessment & Plan Assessment/Plan (1) Left tubo-ovarian abscess: PLAN: 1. Left tubo-ovarian abscess with Streptococcus intermedius-again infectious diseases has adjusted the patient's antibiotic coverage, CBC will be repeated tomorrow, patient had a repeat CT of the abdomen and pelvis performed today, the read out is pending at this time #2 sepsis secondary to #1-again patient's antibiotics will be adjusted by infectious diseases #3 morbid obesity Charges/Coding Visit Charges Inpatient E&M: 01186 Subs Hosp L2
[2021-05-24 20:41] VITALS: BP 135/65; PULSE 80; RESP 20; TEMP 36.9; O2SAT 96
[2021-05-25] VITALS (15 sets, daily range): BP systolic 103–138; BP diastolic 7–82; PULSE 72–84; RESP 14–33; TEMP 36.7–37.2; O2SAT 92–100; BMI 43.7
--- NOTE | 2021-05-25 | FLU_PTH ---
PATIENT: SAQIB MELGAR LOC: MS3 U#:[id number] AGE/SX: 56/F ROOM: [facility] RE05/19/[address]: Dr. Silvestre Diamond DO : 1965 BED: 1 DIS: 05/26/2021 SPEC #: [id number] RECD: 05/25/21 12:40 STATUS: GISELLE REQ #: [id number] RICARDO: 05/25/21 00:[address]: Silvestre Diamond DEPT: CYTOLOGY RECD BY: Claire Rodgers ENTERED: 05/25/21 12:40 SP TYPE: Fluid OTHR DR: MD Dr. Janet Sánchez MD Dr. Nana Yaa Koram, MD Dr. Robert Leininger, MD Dr. Sara Wiswell, DO Tissues: Pelvis, NOS Procedures: Special Stain Group II Special Stain Group I Surgery Specimen Level IV AFB Stain (control) GMS Stain (control) Cytospin Fluid HEADER OPERATION: CT-guided pelvic abscess PRE-OP DIAGNOSIS: Pelvic abscess TISSUE SUBMITTED: Pelvic abscess fluid for cytology DIAGNOSIS CYTOLOGY Pelvic abscess fluid, aspiration (cytospin and cell block): Abundant acute inflammatory cells. No evidence of malignancy. See comment. AM:faizan 05/26/2021 COMMENT AFB and GMS stains with matched controls are negative for micro-organisms. Clinical correlation is suggested. CYTOLOGY STUDY Slides are reviewed. CYTOLOGY GROSS Received is 80 ml of thick potter-reddish cloudy fluid labeled with the patient's name and and designated per the requisition as pelvic abscess. Submitted for cytology preparation including cell block. / faizan 05/25/2021 TC:2 CPT: 86281, 58292, 01967 x2
--- NOTE | 2021-05-25 04:43 | PCM.PN.BLA ---
Progress Note Nurse reported patient complains of lightheadedness and spinning sensation. Per nurse orthostatic vitals are negative. Meclizine 12.5 mg x 1 ordered.
[2021-05-25] MEDS: Meclizine 12.5 MG Tablet PO (05:15)
[2021-05-25 05:44] LABS: Absolute Lymphocyte Count 1.12 X10^3/uL (0.83-4.51); Absolute Neutrophil Count 10.4 X10^3/uL (2.0-7.7); Basophil# 0.04 X10^3/uL; Basophil% 0.3 % (0-1); Eosinophil# 0.15 X10^3/uL; Eosinophils% 1.2 % (0-5); Hematocrit 26.4 % (37-47); Hemoglobin 8.4 g/dL (12.0-15.0); Lymphocyte # 1.12 X10^3/ul (0.83-4.51); Lymphocyte % 8.9 % (19-41); Mean Corp Hgb Conc 31.8 g/dL (32-36); Mean Corpuscular Hgb 26.8 pg (27.0-32.0); Mean Corpuscular Volume 84.3 fL (81-99); Monocyte# 0.67 X10^3/uL; Monocyte% 5.3 % (0-10); NRBC Flagged by Analyzer 0 % (0-5); Neutrophil # 10.43 X10^3/uL (2.7-7.7); Neutrophil % 82.9 % (47-70); Platelet Count 527 K/mm3 (150-450); RBC Distribution Width CV 17.3 % (11.6-14.6); RBC Distribution Width SD 53.1 fl (35.1-43.9); Red Blood Count 3.13 M/mm3 (4.2-5.4); White Blood Count 12.6 K/mm3 (4.4-11.0)
[2021-05-25 06:00] LABS: International Normalized Ratio 1.3
[2021-05-25 06:12] LABS: ALB/GLOB Ratio 0.3 RATIO (0.9-2.4); AST(SGOT) 14 U/L (15-37); Alanine Aminotransfer ALT/SGPT 14 U/L (13-56); Albumin, Serum 1.4 g/dL (3.2-5.0); Alkaline Phosphatase 78 U/L (45-117); Anion Gap 7 (5-15); BUN 9 mg/dL (7-18); BUN/Creat Ratio 6.5 RATIO (10-20); Calcium,Total 7.5 mg/dL (8.5-10.1); Chloride 114 mmol/L (98-107); Creatinine, Serum 1.39 mg/dL (0.55-1.02); EST Glomerular Filtration Rate 42 mL/min (>60); Est Glom Filt Rate - Afr Amer 51 mL/min (>60); Estimated Creatinine Clearance 39.95 ml/min; Globulin 4.3 g/dL (2.2-4.2); Glucose 99 mg/dL (74-106); Potassium 3.7 mmol/L (3.5-5.1); Protein, Total 5.7 g/dL (6.4-8.2); Sodium Level 145 mmol/L (136-145)
--- NOTE | 2021-05-25 07:27 | EX.PCM.CON.S ---
Assessment & Plan Assessment/Plan (1) Left tubo-ovarian abscess: PLAN: Patient had a repeat CT yesterday which shows continued abscess although decreased in size in the left adnexal area. I recommend replacement of drainage tube. Continue antibiotics as the patient's white count is coming down. I am still unsure if this is actually communicating with the bowel as there does not appear to be much inflammation around the bowel. Either way I would recommend only advance to clear liquids after drain is placed until the patient's symptoms are resolved and her white count normalizes. Helio Peoples MD Pager: [facility] [address] [place] [address], [address] [place] [address] Office: HPI Consult Data Date of Consult: 05/25/21 HPI Narrative HPI Narrative: SAQIB MELGAR, is a 56 F who presents with abdominal pain. The patient was found to have a tubo-ovarian abscess in the left side. She has a drain in place with this dislodged. She still reports lightheadedness but is not having any abdominal pain this morning. [facility] Home Medications NK 05/19/21 [History Last Taken Unknown] Allergy/AdvReac Type Severity Reaction Status Date / Time No Known Allergies Allergy Verified 06/02/17 11:03 Surgical History (Updated 05/19/21 @ 12:18 by Leilani Merritt) History of cholecystectomy Social History Smoking Status: Never smoker ROS Constitutional Constitutional: Reports headache(s); Denies anorexia or fatigue ENT HEENT: Denies abnormal hearing Respiratory/Chest Respiratory/Chest: Denies cough or dyspnea Gastrointestinal Gastrointestinal: Reports abdominal pain and nausea; Denies bloating or hematemesis Neurologic Neurologic: Denies abnormal gait Physical Exam Const alert and oriented x3 HEENT normocephalic Eyes PERRL Resp normal respiratory effort Cardio Rate: regular rate GI soft to palpation and non-tender Medical Records Data Medical Nutrition Assessment Dietitian: Malnutrition Criteria Met Start: 05/24/21 12:57 Freq: Status: Active Protocol: Document 05/24/21 12:57 AG (Rec: 05/24/21 12:57 AG [id number]) Nutrition Malnutrition Evidence of Malnutrition Exists Yes Malnutrition (severe): Acute Illness/Injury Evidenced By Suboptimal Energy Intake ( Severe),Weight Loss (Severe) Intake Problem Inadequate Oral Intake Etiology related to nausea, pain Signs/Symptoms as evidenced by poor po intake x 12 days, estimated PO intake meeting <50% of estimated nutritional needs >5 days Status Active Problem Clinical Problem Acute Disease or Injury Related Malnutrition Etiology severe, acute malnutrition r/t inadequate energy intake d/t nausea, pain Signs/Symptoms as evidenced by unintentional wt loss 18.4#/7.3% <2 weeks, estimated PO intake meeting < 50% of estimated nutritional needs >5 days Status Active Problem Recommendation Dietitian Recommendations/Changes Continue regular diet as tolerated and 4oz ensure compact 4x/day; will add 1 scoop beneprotein to smoothie if pt orders Lab / Micro Data Result Diagrams: 05/25/21 05:08 05/25/21 05:08 Labs: Laboratory Results - last 24 hr 05/24/21 13:55: WBC 14.7 H, RBC 3.29 L, Hgb 8.7 L, Hct 27.4 L, MCV 83.3, MCH 26.4 L, MCHC 31.8 L, RDW Std Deviation 51.7 H, RDW Coeff of Aldo 16.8 H, Plt Count 547 H, MPV 8.9, Immature Gran % (Auto) 1.600 H, Neut % (Auto) 82.3 H, Lymph % (Auto) 8.9 L, [place] % (Auto) 5.6, Eos % (Auto) 1.3, Baso % (Auto) 0.3, Absolute Neuts (auto) 12.1 H, Absolute Lymphs (auto) 1.31, Nucleated RBC % 0 05/24/21 13:55: Sodium 143, Potassium 3.6, Chloride 112 H, Carbon Dioxide 27.0, Anion Gap 4 L, BUN 9, Creatinine 1.41 H, Estim Creat Clear Calc 39.39, Est GFR (MDRD) Af Amer 50 L, Est GFR (MDRD) Non-Af 41 L, BUN/Creatinine Ratio 6.4 L, Glucose 100, Calcium 7.4 L, Total Bilirubin 0.30, AST 12 L, ALT 15, Alkaline Phosphatase 84, Total Protein 5.7 L, Albumin 1.4 L, Globulin 4.3 H, Albumin/Globulin Ratio 0.3 L 05/25/21 05:08: WBC 12.6 H, RBC 3.13 L, Hgb 8.4 L, Hct 26.4 L, MCV 84.3, MCH 26.8 L, MCHC 31.8 L, RDW Std Deviation 53.1 H, RDW Coeff of Aldo 17.3 H, Plt Count 527 H, MPV 9.0, Immature Gran % (Auto) 1.400 H, Neut % (Auto) 82.9 H, Lymph % (Auto) 8.9 L, [place] % (Auto) 5.3, Eos % (Auto) 1.2, Baso % (Auto) 0.3, Absolute Neuts (auto) 10.4 H, Absolute Lymphs (auto) 1.12, Nucleated RBC % 0 05/25/21 05:08: Sodium 145, Potassium 3.7, Chloride 114 H, Carbon Dioxide 24.0, Anion Gap 7, BUN 9, Creatinine 1.39 H, Estim Creat Clear Calc 39.95, Est GFR (MDRD) Af Amer 51 L, Est GFR (MDRD) Non-Af 42 L, BUN/Creatinine Ratio 6.5 L, Glucose 99, Calcium 7.5 L, Total Bilirubin 0.20, AST 14 L, ALT 14, Alkaline Phosphatase 78, Total Protein 5.7 L, Albumin 1.4 L, Globulin 4.3 H, Albumin/Globulin Ratio 0.3 L 05/25/21 05:08: PT 16.0 H, INR 1.3, APTT 31.0 Micro: Microbiology 05/19/21 14:22 Aspirate - Abdominal Gram Stain - Final 05/19/21 14:22 Aspirate - Abdominal Wound Culture - Final Streptococcus intermedius 05/19/21 14:22 Aspirate - Abdominal Anaerobic Culture - Final No anaerobic bacteria isolated. 05/19/21 06:43 Blood Culture (Wb) - Anticubital Right Blood Culture - Final Coag Negative Staph 05/19/21 06:46 Blood Culture (Wb) - Left Hand Blood Culture - Final No growth in 5 days. Radiology Impression Abdomen/Pelvis CT 05/24/21 16:45 IMPRESSION: Bilateral pleural effusions with basilar atelectasis. Hepatic cyst. Colonic diverticulosis. Hiatal hernia. Multiloculated abscess in the left adnexa adjacent to the sigmoid colon, slightly smaller than on previous study. New scattered fluid pockets in the abdomen and pelvis with mesenteric thickening. Fatty umbilical hernia. Electronically Signed: William Singletary DO at 18:22 EDT Tel [phone], Service support ,
--- NOTE | 2021-05-25 09:49 | NURSING ---
pt to radiology
[2021-05-25] MEDS: Midazolam 2 MG/2 ML Syringe IV ×2 (10:17→10:47)
[2021-05-25] MEDS: fentaNYL 100 MCG/2 ML Ampul IV ×2 (10:17→10:47)
[2021-05-25] MEDS: Lidocaine 2% (20 ml mdv) 20 ML Vial INFILT (10:35)
[2021-05-25] MEDS: oxyCODONE 5 MG Tablet PO (12:17)
--- NOTE | 2021-05-25 16:47 | PN.OBGYN_ITS ---
Subjective Subjective Patient is still with nausea and pain. She is concerned she is not improving Objective Data Objective Data Vital Signs: Vital Signs Temp Pulse Resp BP Pulse Ox 98.1 F 73 16 133/78 H 98 05/25/21 12:10 05/25/21 12:10 05/25/21 12:10 05/25/21 12:10 05/25/21 12:10 Oxygen Flow Rate (L/min) [9] 2 Oxygen Flow Rate (L/min) [8] 2 Oxygen Flow Rate (L/min) [7] 2 Oxygen Flow Rate (L/min) [6] 2 Oxygen Flow Rate (L/min) [5] 2 Oxygen Flow Rate (L/min) [4] 3 Oxygen Flow Rate (L/min) [3] 3 Oxygen Flow Rate (L/min) [2] 3 Oxygen Flow Rate (L/min) [1 ( 3 Initial Baseline)] Oxygen Flow Rate (L/min) 2 Oxygen Delivery Method [9] Nasal Cannula Oxygen Delivery Method [8] Nasal Cannula Oxygen Delivery Method [7] Nasal Cannula Oxygen Delivery Method [6] Nasal Cannula Oxygen Delivery Method [5] Nasal Cannula Oxygen Delivery Method [4] Nasal Cannula Oxygen Delivery Method [3] Nasal Cannula Oxygen Delivery Method [2] Nasal Cannula Oxygen Delivery Method [1 ( Nasal Cannula Initial Baseline)] Oxygen Delivery Method Room Air Weight: 254 lb 6.615 oz Body Mass Index (BMI) 43.7 Intake & Output: Intake and Output for Last 24 Hours 05/23/21 05/24/21 05/25/21 23:59 23:59 23:59 Intake Total 3716.00 / 3716.00 3985.83 / 4285.83 2335.42 / 2335.42 Output Total 700 / 700 400 / 400 Balance 3016.00 / 3016.00 3965.83 / 4265.83 1935.42 / 1935.42 Medical Nutrition Assessment Dietitian: Malnutrition Criteria Met Start: 05/24/21 12:57 Freq: Status: Active Protocol: Document 05/24/21 12:57 AG (Rec: 05/24/21 12:57 AG [id number]) Nutrition Malnutrition Evidence of Malnutrition Exists Yes Malnutrition (severe): Acute Illness/Injury Evidenced By Suboptimal Energy Intake ( Severe),Weight Loss (Severe) Intake Problem Inadequate Oral Intake Etiology related to nausea, pain Signs/Symptoms as evidenced by poor po intake x 12 days, estimated PO intake meeting <50% of estimated nutritional needs >5 days Status Active Problem Clinical Problem Acute Disease or Injury Related Malnutrition Etiology severe, acute malnutrition r/t inadequate energy intake d/t nausea, pain Signs/Symptoms as evidenced by unintentional wt loss 18.4#/7.3% <2 weeks, estimated PO intake meeting < 50% of estimated nutritional needs >5 days Status Active Problem Recommendation Dietitian Recommendations/Changes Continue regular diet as tolerated and 4oz ensure compact 4x/day; will add 1 scoop beneprotein to smoothie if pt orders Lab / Micro Data Result Diagrams: 05/25/21 05:08 05/25/21 05:08 Labs: Laboratory Results - last 24 hr 05/25/21 05:08: WBC 12.6 H, RBC 3.13 L, Hgb 8.4 L, Hct 26.4 L, MCV 84.3, MCH 26.8 L, MCHC 31.8 L, RDW Std Deviation 53.1 H, RDW Coeff of Aldo 17.3 H, Plt Count 527 H, MPV 9.0, Immature Gran % (Auto) 1.400 H, Neut % (Auto) 82.9 H, Lymph % (Auto) 8.9 L, [place] % (Auto) 5.3, Eos % (Auto) 1.2, Baso % (Auto) 0.3, Absolute Neuts (auto) 10.4 H, Absolute Lymphs (auto) 1.12, Nucleated RBC % 0 05/25/21 05:08: Sodium 145, Potassium 3.7, Chloride 114 H, Carbon Dioxide 24.0, Anion Gap 7, BUN 9, Creatinine 1.39 H, Estim Creat Clear Calc 39.95, Est GFR (MDRD) Af Amer 51 L, Est GFR (MDRD) Non-Af 42 L, BUN/Creatinine Ratio 6.5 L, Glucose 99, Calcium 7.5 L, Total Bilirubin 0.20, AST 14 L, ALT 14, Alkaline Phosphatase 78, Total Protein 5.7 L, Albumin 1.4 L, Globulin 4.3 H, Albumin/Globulin Ratio 0.3 L 05/25/21 05:08: PT 16.0 H, INR 1.3, APTT 31.0 Micro: Microbiology 05/19/21 14:22 Aspirate - Abdominal Gram Stain - Final 05/19/21 14:22 Aspirate - Abdominal Wound Culture - Final Streptococcus intermedius 05/19/21 14:22 Aspirate - Abdominal Anaerobic Culture - Final No anaerobic bacteria isolated. 05/19/21 06:43 Blood Culture (Wb) - Anticubital Right Blood Culture - Final Coag Negative Staph 05/19/21 06:46 Blood Culture (Wb) - Left Hand Blood Culture - Final No growth in 5 days. 05/19/21 04:50 Urine, Clean Catch Urine Culture - Final Mixed Gram Positive Organisms Radiography Diagnostic Testing: Radiology Impression Abdomen/Pelvis CT 05/24/21 16:45 IMPRESSION: Bilateral pleural effusions with basilar atelectasis. Hepatic cyst. Colonic diverticulosis. Hiatal hernia. Multiloculated abscess in the left adnexa adjacent to the sigmoid colon, slightly smaller than on previous study. New scattered fluid pockets in the abdomen and pelvis with mesenteric thickening. Fatty umbilical hernia. Electronically Signed: William Singletary DO at 18:22 EDT Tel [phone], Service support , Abscess Drainage CT 05/25/21 19:19 IMPRESSION: Successful CT guided drainage of the left pelvic abscess, as described above. The patient tolerated procedure well. Conscious sedation protocol was followed. Electronically Signed: Abel Vee MD at 12:11 EDT , Service support , Physical Exam Const alert and no apparent distress General Appearance: comfortable GI soft to palpation GI Narrative: diffuse tenderness, no acute peritoneal signs Assessment & Plan (1) Positive blood culture: (2) DVT prophylaxis: (3) Anemia: QUALIFIERS: Anemia type: unspecified type Qualified Code(s): D64.9 - Anemia, unspecified (4) Sepsis: QUALIFIERS: Sepsis type: sepsis due to unspecified organism Sepsis acute organ dysfunction status: unspecified Qualified Code(s): A41.9 - Sepsis, unspecified organism (5) Leukocytosis: QUALIFIERS: Leukocytosis type: unspecified Qualified Code(s): D72.829 - Elevated white blood cell count, unspecified (6) Left tubo-ovarian abscess: PLAN: S/p second drain placement. Patient still does not feel well and she is concerned about not getting better. Discussed patient with my partners, as well as a studio grip oncologist at [facility] for another opinion. Concern that she will need surgical intervention at some point given the size of the abscess. Minimally bloody drainage at this time in DARIUS drain. Discussed option for continued surveillance here vs transfer to a tertiary care center in case she needs surgical intervention. Patient desires transfer if possible. Will discuss with medicine team as well. Cont to monitor DARIUS output overnight and recheck labs in AM. Then will see about transfer tomorrow.
--- NOTE | 2021-05-25 18:28 | PCM.PN.HOSP ---
Subjective Subjective Patient was seen and examined today, I talked with gynecology concerning her care today. Patient had a drain replaced in her pelvic abscess, there has been scant drainage however since the drain was put in. Her ELEVATOR TECHNICIAN physician is concerned regarding this and is considering taking the patient to surgery for drainage of the abscess area. General surgery saw the patient today, I was not able to talk with him about the case. Patient complains of ongoing nausea at this time. Objective Data Objective Data Vital Signs: Vital Signs Temp Pulse Resp BP Pulse Ox 98.1 F 73 16 133/78 H 98 05/25/21 12:10 05/25/21 12:10 05/25/21 12:10 05/25/21 12:10 05/25/21 12:10 Oxygen Flow Rate (L/min) [9] 2 Oxygen Flow Rate (L/min) [8] 2 Oxygen Flow Rate (L/min) [7] 2 Oxygen Flow Rate (L/min) [6] 2 Oxygen Flow Rate (L/min) [5] 2 Oxygen Flow Rate (L/min) [4] 3 Oxygen Flow Rate (L/min) [3] 3 Oxygen Flow Rate (L/min) [2] 3 Oxygen Flow Rate (L/min) [1 ( 3 Initial Baseline)] Oxygen Flow Rate (L/min) 2 Oxygen Delivery Method [9] Nasal Cannula Oxygen Delivery Method [8] Nasal Cannula Oxygen Delivery Method [7] Nasal Cannula Oxygen Delivery Method [6] Nasal Cannula Oxygen Delivery Method [5] Nasal Cannula Oxygen Delivery Method [4] Nasal Cannula Oxygen Delivery Method [3] Nasal Cannula Oxygen Delivery Method [2] Nasal Cannula Oxygen Delivery Method [1 ( Nasal Cannula Initial Baseline)] Oxygen Delivery Method Room Air Weight: 115.4 kg Body Mass Index (BMI) 43.7 Intake & Output: Intake and Output for Last 24 Hours 05/23/21 05/24/21 05/25/21 23:59 23:59 23:59 Intake Total 3716.00 / 3716.00 3985.83 / 4285.83 2385.42 / 2385.42 Output Total 700 / 700 400 / 400 Balance 3016.00 / 3016.00 3965.83 / 4265.83 1985.42 / 1984.42 Medical Nutrition Assessment Dietitian: Malnutrition Criteria Met Start: 05/24/21 12:57 Freq: Status: Active Protocol: Document 10/27/21 12:57 AG (Rec: 05/24/21 12:57 AG [id number]) Nutrition Malnutrition Evidence of Malnutrition Exists Yes Malnutrition (severe): Acute Illness/Injury Evidenced By Suboptimal Energy Intake ( Severe),Weight Loss (Severe) Intake Problem Inadequate Oral Intake Etiology related to nausea, pain Signs/Symptoms as evidenced by poor po intake x 12 days, estimated PO intake meeting <50% of estimated nutritional needs >5 days Status Active Problem Clinical Problem Acute Disease or Injury Related Malnutrition Etiology severe, acute malnutrition r/t inadequate energy intake d/t nausea, pain Signs/Symptoms as evidenced by unintentional wt loss 18.4#/7.3% <2 weeks, estimated PO intake meeting < 50% of estimated nutritional needs >5 days Status Active Problem Recommendation Dietitian Recommendations/Changes Continue regular diet as tolerated and 4oz ensure compact 4x/day; will add 1 scoop beneprotein to smoothie if pt orders Lab / Micro Data Result Diagrams: 05/25/21 05:08 05/25/21 05:08 Labs: Laboratory Results - last 24 hr 05/25/21 05:08: WBC 12.6 H, RBC 3.13 L, Hgb 8.4 L, Hct 26.4 L, MCV 84.3, MCH 26.8 L, MCHC 31.8 L, RDW Std Deviation 53.1 H, RDW Coeff of Aldo 17.3 H, Plt Count 527 H, MPV 9.0, Immature Gran % (Auto) 1.400 H, Neut % (Auto) 82.9 H, Lymph % (Auto) 8.9 L, Emmet % (Auto) 5.3, Eos % (Auto) 1.2, Baso % (Auto) 0.3, Absolute Neuts (auto) 10.4 H, Absolute Lymphs (auto) 1.12, Nucleated RBC % 0 05/25/21 05:08: Sodium 145, Potassium 3.7, Chloride 114 H, Carbon Dioxide 24.0, Anion Gap 7, BUN 9, Creatinine 1.39 H, Estim Creat Clear Calc 39.95, Est GFR (MDRD) Af Amer 51 L, Est GFR (MDRD) Non-Af 42 L, BUN/Creatinine Ratio 6.5 L, Glucose 99, Calcium 7.5 L, Total Bilirubin 0.20, AST 14 L, ALT 14, Alkaline Phosphatase 78, Total Protein 5.7 L, Albumin 1.4 L, Globulin 4.3 H, Albumin/Globulin Ratio 0.3 L 05/25/21 05:08: PT 16.0 H, INR 1.3, APTT 31.0 Micro: Microbiology 05/19/21 14:22 Aspirate - Abdominal Gram Stain - Final 05/19/21 14:22 Aspirate - Abdominal Wound Culture - Final Streptococcus intermedius 05/19/21 14:22 Aspirate - Abdominal Anaerobic Culture - Final No anaerobic bacteria isolated. 05/19/21 06:43 Blood Culture (Wb) - Anticubital Right Blood Culture - Final Coag Negative Staph 05/19/21 06:46 Blood Culture (Wb) - Left Hand Blood Culture - Final No growth in 5 days. 05/19/21 04:50 Urine, Clean Catch Urine Culture - Final Mixed Gram Positive Organisms Radiography Diagnostic Testing: Radiology Impression Abdomen/Pelvis CT 05/24/21 16:45 IMPRESSION: Bilateral pleural effusions with basilar atelectasis. Hepatic cyst. Colonic diverticulosis. Hiatal hernia. Multiloculated abscess in the left adnexa adjacent to the sigmoid colon, slightly smaller than on previous study. New scattered fluid pockets in the abdomen and pelvis with mesenteric thickening. Fatty umbilical hernia. Electronically Signed: William Singletary DO at 18:22 EDT Tel [phone], Service support , Abscess Drainage CT 05/25/21 19:19 IMPRESSION: Successful CT guided drainage of the left pelvic abscess, as described above. The patient tolerated procedure well. Conscious sedation protocol was followed. Electronically Signed: Abel Vee MD at 12:11 EDT , Service support , Physical Exam Const alert and oriented x3 General Appearance: cooperative, well kempt and well developed Orientation / Consciousness: awake, oriented to person, oriented to place and oriented to time HEENT normocephalic, head/scalp atraumatic and moist oral mucous membranes Head and Scalp: normocephalic Eyes PERRL, EOMs intact bilaterally and conjunctivae normal Neck nuchal rigidity, supple, no JVD and thyroid normal General: trachea midline Resp normal respiratory effort, no retractions, no use of accessory muscles and clear to auscultation bilaterally Auscultation: Negative for rales, rhonchi or wheezes Cardio regular rate, regular rhythm, S1 normal heart sound, S2 normal heart sound, no murmurs, no rub and no gallops GI soft to palpation and non-distended GI Narrative: Bowel sounds for present but hypoactive Extremity no clubbing, cyanosis or edema Skin no rashes or lesions noted and no wounds General Skin Exam: no breakdown Neuro oriented x3, CN's II-XII intact bilaterally, no focal motor deficits and no sensory deficits noted Sensorium / Orientation: awake and alert Speech: speech normal Psych thought process normal and affect normal Assessment & Plan Assessment/Plan (1) Left tubo-ovarian abscess: PLAN: 1. Left tubo-ovarian abscess with Streptococcus intermedius- again, today radiology placed a drain in the area of abscess, there is scant drainage however and the patient may ultimately require a surgical procedure for adequate drainage of the abscess. #2 sepsis secondary to #1-again patient's antibiotics will be adjusted by infectious diseases if needed #3 morbid obesity Charges/Coding Visit Charges Inpatient E&M: 11986 Subs Hosp L2
--- NOTE | 2021-05-25 19:19 | CT_ITS ---
PROCEDURE: CT GUIDED percutaneous drainage of the left pelvic abscess. DATE: 05/25/2021. INDICATION: Female, 56 years old. Left pelvic abscess. PHYSICIAN: Abel Vee M.D. RADIATION DOSAGE (If Supplied By Facility): CTDIvol = ( 21 ) mGy, DLP = ( 1278.25 ) mGycm. Individualized dose optimization techniques were utilized. PROCEDURE: The risks, benefits, and alternatives to the procedure were explained to the patient. The specific risk of hemorrhage requiring further treatment or intervention was detailed and accepted. Follow-up instructions were discussed with the patient as well. Written informed consent was obtained. The patient was brought into the CT suite and placed in the prone position. . An appropriate entry site was identified. The overlying skin was prepped and draped in the usual sterile fashion. 1% lidocaine was administered subcutaneously for local anesthesia. Conscious sedation was performed. The patient received 3 mg of VERSED and 75 mcg of FENTANYL intravenously. The patient was independently monitored by the department nurse. Conscious sedation was started at 10:17 AM intermittent 10:[address] guidance, a 8 Swedish percutaneous catheter was placed into the abscess in the left lower quadrant. 90 cc of a purulent material was aspirated. The catheter was left in place. The specimens were transported to the laboratory for analysis. Hemostasis was obtained. The patient tolerated the procedure well without immediate complications. CT/CT Guidance Abscess Drg w/Cath IMPRESSION: Successful CT guided drainage of the left pelvic abscess, as described above. The patient tolerated procedure well. Conscious sedation protocol was followed. Electronically Signed: Abel Vee MD at 12:11 EDT , Service support ,
[2021-05-25] MEDS: NYSTATIN 500,000 UNIT/5 ML UDC 500000 UNIT PO (20:59)
[2021-05-26] MEDS: Acetaminophen 325 MG Tablet 650 MG PO (01:26)
[2021-05-26 01:27] VITALS: BP 116/65; PULSE 82; RESP 18; TEMP 36.6; O2SAT 95
[2021-05-26 05:47] VITALS: BP 104/68; PULSE 76; RESP 18; TEMP 36.7; O2SAT 97
--- NOTE | 2021-05-26 07:32 | PCM.PN.SRG ---
Subjective Subjective Patient reports no nausea or vomiting. Objective Data Objective Data Vital Signs: Vital Signs Temp Pulse Resp BP Pulse Ox 98.1 F 76 18 104/68 97 05/26/21 05:47 05/26/21 05:47 05/26/21 05:47 05/26/21 05:47 05/26/21 05:47 Oxygen Flow Rate (L/min) [9] 2 Oxygen Flow Rate (L/min) [8] 2 Oxygen Flow Rate (L/min) [7] 2 Oxygen Flow Rate (L/min) [6] 2 Oxygen Flow Rate (L/min) [5] 2 Oxygen Flow Rate (L/min) [4] 3 Oxygen Flow Rate (L/min) [3] 3 Oxygen Flow Rate (L/min) [2] 3 Oxygen Flow Rate (L/min) [1 ( 3 Initial Baseline)] Oxygen Flow Rate (L/min) 2 Oxygen Delivery Method [9] Nasal Cannula Oxygen Delivery Method [8] Nasal Cannula Oxygen Delivery Method [7] Nasal Cannula Oxygen Delivery Method [6] Nasal Cannula Oxygen Delivery Method [5] Nasal Cannula Oxygen Delivery Method [4] Nasal Cannula Oxygen Delivery Method [3] Nasal Cannula Oxygen Delivery Method [2] Nasal Cannula Oxygen Delivery Method [1 ( Nasal Cannula Initial Baseline)] Oxygen Delivery Method Room Air Weight: 254 lb 6.615 oz Body Mass Index (BMI) 43.7 Intake & Output: Intake and Output for Last 24 Hours 05/24/21 05/25/21 05/26/21 23:59 23:59 23:59 Intake Total 3985.83 / 4285.83 2548.42 / 2548.42 1233.33 / 1233.33 Output Total 400 / 400 Balance 3965.83 / 4265.83 2148.42 / 2148.42 1223.33 / 1223.33 Medical Nutrition Assessment Dietitian: Malnutrition Criteria Met Start: 05/24/21 12:57 Freq: Status: Active Protocol: Document 05/24/21 12:57 AG (Rec: 05/24/21 12:57 [id number]) Nutrition Malnutrition Evidence of Malnutrition Exists Yes Malnutrition (severe): Acute Illness/Injury Evidenced By Suboptimal Energy Intake ( Severe),Weight Loss (Severe) Intake Problem Inadequate Oral Intake Etiology related to nausea, pain Signs/Symptoms as evidenced by poor po intake x 12 days, estimated PO intake meeting <50% of estimated nutritional needs >5 days Status Active Problem Clinical Problem Acute Disease or Injury Related Malnutrition Etiology severe, acute malnutrition r/t inadequate energy intake d/t nausea, pain Signs/Symptoms as evidenced by unintentional wt loss 18.4#/7.3% <2 weeks, estimated PO intake meeting < 50% of estimated nutritional needs >5 days Status Active Problem Recommendation Dietitian Recommendations/Changes Continue regular diet as tolerated and 4oz ensure compact 4x/day; will add 1 scoop beneprotein to smoothie if pt orders Lab / Micro Data Result Diagrams: 05/25/21 05:08 05/25/21 05:08 Micro: Microbiology 05/19/21 14:22 Aspirate - Abdominal Gram Stain - Final 05/19/21 14:22 Aspirate - Abdominal Wound Culture - Final Streptococcus intermedius 05/19/21 14:22 Aspirate - Abdominal Anaerobic Culture - Final No anaerobic bacteria isolated. 05/19/21 06:43 Blood Culture (Wb) - Anticubital Right Blood Culture - Final Coag Negative Staph 05/19/21 06:46 Blood Culture (Wb) - Left Hand Blood Culture - Final No growth in 5 days. 05/19/21 04:50 Urine, Clean Catch Urine Culture - Final Mixed Gram Positive Organisms Radiography Diagnostic Testing: Radiology Impression Abscess Drainage CT 05/25/21 19:19 IMPRESSION: Successful CT guided drainage of the left pelvic abscess, as described above. The patient tolerated procedure well. Conscious sedation protocol was followed. Electronically Signed: Abel Vee MD at 12:11 EDT , Service support , Physical Exam GI soft to palpation and non-tender Assessment & Plan Assessment/Plan (1) Left tubo-ovarian abscess: PLAN: Patient has an abscess in the left pelvis and the drain was replaced yesterday. There was 90 cc aspirated initially. Patient still has some seropurulent drainage. Patient reports no abdominal pain or nausea or vomiting. Regular diet and antibiotics. Recheck white count today. Helio Peoples MD Pager: [facility] [address] [place] [address], [address] [place] [address] Office:
--- NOTE | 2021-05-26 07:58 | PCM.PROGNOTE ---
Subjective Subjective Patient seen at bedside. Patient reports overall is feeling a little bit better. She reports she does have some nausea but is not taking any medication for it and it is tolerable. Patient denies any vomiting. No fevers or chills. She reports she still has abdominal pressure but the pain is still slowly improving. Patient is voiding and having bowel movements without difficulty. Mentally patient is exhausted . Patient states she is able to get up and walk without feeling dizzy or short of breath. Objective Data Objective Data Vital Signs: Vital Signs Temp Pulse Resp BP Pulse Ox 98.1 F 76 18 104/68 97 05/26/21 05:47 05/26/21 05:47 05/26/21 05:47 05/26/21 05:47 05/26/21 05:47 Oxygen Flow Rate (L/min) [9] 2 Oxygen Flow Rate (L/min) [8] 2 Oxygen Flow Rate (L/min) [7] 2 Oxygen Flow Rate (L/min) [6] 2 Oxygen Flow Rate (L/min) [5] 2 Oxygen Flow Rate (L/min) [4] 3 Oxygen Flow Rate (L/min) [3] 3 Oxygen Flow Rate (L/min) [2] 3 Oxygen Flow Rate (L/min) [1 ( 3 Initial Baseline)] Oxygen Flow Rate (L/min) 2 Oxygen Delivery Method [9] Nasal Cannula Oxygen Delivery Method [8] Nasal Cannula Oxygen Delivery Method [7] Nasal Cannula Oxygen Delivery Method [6] Nasal Cannula Oxygen Delivery Method [5] Nasal Cannula Oxygen Delivery Method [4] Nasal Cannula Oxygen Delivery Method [3] Nasal Cannula Oxygen Delivery Method [2] Nasal Cannula Oxygen Delivery Method [1 ( Nasal Cannula Initial Baseline)] Oxygen Delivery Method Room Air Weight: 115.4 kg Body Mass Index (BMI) 43.7 Intake & Output: Intake and Output for Last 24 Hours 05/24/21 05/25/21 05/26/21 23:59 23:59 23:59 Intake Total 3985.83 / 4285.83 2548.42 / 2548.42 1233.33 / 1233.33 Output Total 400 / 400 Balance 3965.83 / 4265.83 2148.42 / 2148.42 1223.33 / 1223.33 Medical Nutrition Assessment Dietitian: Malnutrition Criteria Met Start: 05/24/21 12:57 Freq: Status: Active Protocol: Document 05/24/21 12:57 AG (Rec: 05/24/21 12:57 AG [id number]) Nutrition Malnutrition Evidence of Malnutrition Exists Yes Malnutrition (severe): Acute Illness/Injury Evidenced By Suboptimal Energy Intake ( Severe),Weight Loss (Severe) Intake Problem Inadequate Oral Intake Etiology related to nausea, pain Signs/Symptoms as evidenced by poor po intake x 12 days, estimated PO intake meeting <50% of estimated nutritional needs >5 days Status Active Problem Clinical Problem Acute Disease or Injury Related Malnutrition Etiology severe, acute malnutrition r/t inadequate energy intake d/t nausea, pain Signs/Symptoms as evidenced by unintentional wt loss 18.4#/7.3% <2 weeks, estimated PO intake meeting < 50% of estimated nutritional needs >5 days Status Active Problem Recommendation Dietitian Recommendations/Changes Continue regular diet as tolerated and 4oz ensure compact 4x/day; will add 1 scoop beneprotein to smoothie if pt orders Lab / Micro Data Result Diagrams: 05/25/21 05:08 05/25/21 05:08 Micro: Microbiology 05/19/21 14:22 Aspirate - Abdominal Gram Stain - Final 05/19/21 14:22 Aspirate - Abdominal Wound Culture - Final Streptococcus intermedius 05/19/21 14:22 Aspirate - Abdominal Anaerobic Culture - Final No anaerobic bacteria isolated. 05/19/21 06:43 Blood Culture (Wb) - Anticubital Right Blood Culture - Final Coag Negative Staph 05/19/21 06:46 Blood Culture (Wb) - Left Hand Blood Culture - Final No growth in 5 days. 05/19/21 04:50 Urine, Clean Catch Urine Culture - Final Mixed Gram Positive Organisms Radiography Diagnostic Testing: Radiology Impression Abscess Drainage CT 05/25/21 19:19 IMPRESSION: Successful CT guided drainage of the left pelvic abscess, as described above. The patient tolerated procedure well. Conscious sedation protocol was followed. Electronically Signed: Abel Vee MD at 12:11 EDT , Service support , Physical Exam Narrative general-female, alert and oriented x3, well-nourished Abdomen-soft nondistended. No rebound, no guarding. Minimal tenderness diffusely extremities-no calf tenderness. SCDs are off at this time. Patient encouraged to keep them on while in bed. Assessment & Plan Assessment/Plan (1) Positive blood culture: PLAN: Continue antibiotics-Zosyn- as directed by infectious disease (2) Anemia: QUALIFIERS: Anemia type: unspecified type Qualified Code(s): D64.9 - Anemia, unspecified PLAN: Hemoglobin stable (3) Left tubo-ovarian abscess: PLAN: Replacement of the abscess drain on 05/25/2021 by IR-left lower quadrant -drain putting out minimal serosanguineous fluid Discussed possible surgical intervention-discussed would recommend transport to tertiary care center with TECHNICAL SALES ADVISOR [employer] or minimally invasive gynecologic surgery. We discussed that at this time the wait for an open bed at [facility] is long and option would be to put her on the list and if a bed becomes available we could transport her. Otherwise she will remain at [facility] over the weekend with a repeat imaging on 05/28 or 05/29/21. When I discussed this with the patient about possible transfer if she needed surgical intervention she would want to be at a tertiary care center however she is concerned because her would not be able to travel to visit her. Patient is in agreement to stay at [facility] over the weekend if prompt surgical intervention can be performed at a tertiary care center. General surgery recommends conservative management at this time-plan will be to repeat CT scan on 05/28/21 or 05/29/21-at that time if significant improvement may consider discharge home with p.o. antibiotics and follow-up as an outpatient. (4) Leukocytosis: QUALIFIERS: Leukocytosis type: unspecified Qualified Code(s): D72.829 - Elevated white blood cell count, unspecified PLAN: Repeat CBC with differential today-continue current antibiotics
[2021-05-26 08:00] LABS: Absolute Lymphocyte Count 0.99 X10^3/uL (0.83-4.51); Absolute Neutrophil Count 6.3 X10^3/uL (2.0-7.7); Basophil# 0.03 X10^3/uL; Basophil% 0.4 % (0-1); Eosinophil# 0.22 X10^3/uL; Eosinophils% 2.7 % (0-5); Hemoglobin 8.3 g/dL (12.0-15.0); Lymphocyte # 0.99 X10^3/ul (0.83-4.51); Mean Corp Hgb Conc 30.7 g/dL (32-36); Mean Corpuscular Hgb 26.2 pg (27.0-32.0); Mean Corpuscular Volume 85.2 fL (81-99); Mean Platelet Vol. 8.7 fl (6.2-12.0); Monocyte# 0.57 X10^3/uL; Monocyte% 6.9 % (0-10); NRBC Flagged by Analyzer 0 % (0-5); Neutrophil # 6.31 X10^3/uL (2.7-7.7); Neutrophil % 76.7 % (47-70); Platelet Count 496 K/mm3 (150-450); RBC Distribution Width CV 17.1 % (11.6-14.6); Red Blood Count 3.17 M/mm3 (4.2-5.4); White Blood Count 8.2 K/mm3 (4.4-11.0)
[2021-05-26 08:26] LABS: Anion Gap 4 (5-15); BUN 8 mg/dL (7-18); BUN/Creat Ratio 6.3 RATIO (10-20); Calcium,Total 7.6 mg/dL (8.5-10.1); Chloride 114 mmol/L (98-107); Creatinine, Serum 1.27 mg/dL (0.55-1.02); EST Glomerular Filtration Rate 47 mL/min (>60); Est Glom Filt Rate - Afr Amer 56 mL/min (>60); Estimated Creatinine Clearance 43.73 ml/min; Glucose 98 mg/dL (74-106); Potassium 4.1 mmol/L (3.5-5.1); Sodium Level 143 mmol/L (136-145)
[2021-05-26 09:10] VITALS: BP 137/85; PULSE 72; RESP 18; TEMP 36.7; O2SAT 97
[2021-05-26] MEDS: proMETHazine 25 MG Tablet 12.5 MG PO (11:17)
--- NOTE | 2021-05-26 11:23 | DCINST_ITS ---
Discharge Instructions Diet Discharge Diet: No restrictions Activity Discharge Activity: Return to Normal Activity May resume sexual activity in: 4 weeks Dressing / Incision Call your doctor if you observe: Fever of 101 or Higher, Inability to urinate, Chest pain and Uncontrolled pain Follow Up Care Please Follow Up With: Dina Bacon DO When: saturday05/29/21 @ 9am Dr. Bacon At [address] second [address]. Test Results: Test results from this visit will be discussed in further detail at your follow-up appointment, if applicable. Discharge Plan Admission Admit Date/Time: 05/19/21 10:30 Primary Reason for Your Visit: Sepsis, Tuboovarian abscess Attending Provider: Silvestre Diamond Primary Care Provider: Janet Simon Consulting Providers: Bridgette Carpenter ; Nakul Noriega ; Helio Peoples Discharge Orders/Prescriptions Prescriptions: New ondansetron HCl 8 mg Tablet 8 mg PO Q8H PRN PRN (Reason: NAUSEA/VOMITING) Qty: 30 RF: 0 amoxicillin-pot clavulanate [Augmentin] 875-125 mg tablet 1 tab PO BID Qty: 28 RF: 0 Referrals / Follow Up: Janet Simon MD [Primary Care Provider] - Disposition Disposition (needs filled in before D/C Order can be placed): Home, Self Care
--- NOTE | 2021-05-26 12:38 | PN_ITS ---
Subjective Subjective pt seen at bedside after discussing plan of care with Dr. Díaz. pt reports overall feeling better and her pain is only when walking - she feels it in her back side. pt reports has some nausea but improving as she is not taking anything at this time for it. after discussion of plan for possible dc home with follow up in the office next week with maintenance of drain- pt and agree for dc home. Objective Data Objective Data Vital Signs: Vital Signs Temp Pulse Resp BP Pulse Ox 98.1 F 72 18 137/85 H 97 05/26/21 09:10 05/26/21 09:10 05/26/21 09:10 05/26/21 09:10 05/26/21 09:10 Oxygen Flow Rate (L/min) [9] 2 Oxygen Flow Rate (L/min) [8] 2 Oxygen Flow Rate (L/min) [7] 2 Oxygen Flow Rate (L/min) [6] 2 Oxygen Flow Rate (L/min) [5] 2 Oxygen Flow Rate (L/min) [4] 3 Oxygen Flow Rate (L/min) [3] 3 Oxygen Flow Rate (L/min) [2] 3 Oxygen Flow Rate (L/min) [1 ( 3 Initial Baseline)] Oxygen Flow Rate (L/min) 2 Oxygen Delivery Method [9] Nasal Cannula Oxygen Delivery Method [8] Nasal Cannula Oxygen Delivery Method [7] Nasal Cannula Oxygen Delivery Method [6] Nasal Cannula Oxygen Delivery Method [5] Nasal Cannula Oxygen Delivery Method [4] Nasal Cannula Oxygen Delivery Method [3] Nasal Cannula Oxygen Delivery Method [2] Nasal Cannula Oxygen Delivery Method [1 ( Nasal Cannula Initial Baseline)] Oxygen Delivery Method Room Air Weight: 115.4 kg Body Mass Index (BMI) 43.7 Intake & Output: Intake and Output for Last 24 Hours 05/24/21 05/25/21 05/26/21 23:59 23:59 23:59 Intake Total 3985.83 / 4285.83 2548.42 / 2548.42 Output Total 400 / 400 Balance 3965.83 / 4265.83 2148.42 / 2148.42 / Medical Nutrition Assessment Dietitian: Malnutrition Criteria Met Start: 05/24/21 12:57 Freq: Status: Active Protocol: Document 05/24/21 12:57 AG (Rec: 05/24/21 12:57 [id number]) Nutrition Malnutrition Evidence of Malnutrition Exists Yes Malnutrition (severe): Acute Illness/Injury Evidenced By Suboptimal Energy Intake ( Severe),Weight Loss (Severe) Intake Problem Inadequate Oral Intake Etiology related to nausea, pain Signs/Symptoms as evidenced by poor po intake x 12 days, estimated PO intake meeting <50% of estimated nutritional needs >5 days Status Active Problem Clinical Problem Acute Disease or Injury Related Malnutrition Etiology severe, acute malnutrition r/t inadequate energy intake d/t nausea, pain Signs/Symptoms as evidenced by unintentional wt loss 18.4#/7.3% <2 weeks, estimated PO intake meeting < 50% of estimated nutritional needs >5 days Status Active Problem Recommendation Dietitian Recommendations/Changes Continue regular diet as tolerated and 4oz ensure compact 4x/day; will add 1 scoop beneprotein to smoothie if pt orders Lab / Micro Data Result Diagrams: 05/26/21 07:50 05/26/21 07:50 Labs: Laboratory Results - last 24 hr 05/26/21 07:50: WBC 8.2, RBC 3.17 L, Hgb 8.3 L, Hct 27.0 L, MCV 85.2, MCH 26.2 L , MCHC 30.7 L, RDW Std Deviation 53.0 H, RDW Coeff of Aldo 17.1 H, Plt Count 496 H, MPV 8.7, Immature Gran % (Auto) 1.300 H, Neut % (Auto) 76.7 H, Lymph % (Auto) 12.0 L, Kerr % (Auto) 6.9, Eos % (Auto) 2.7, Baso % (Auto) 0.4, Absolute Neuts (auto) 6.3, Absolute Lymphs (auto) 0.99, Nucleated RBC % 0 05/26/21 07:50: Sodium 143, Potassium 4.1, Chloride 114 H, Carbon Dioxide 25.0, Anion Gap 4 L, BUN 8, Creatinine 1.27 H, Estim Creat Clear Calc 43.73, Est GFR (MDRD) Af Amer 56 L, Est GFR (MDRD) Non-Af 47 L, BUN/Creatinine Ratio 6.3 L, Glucose 98, Calcium 7.6 L Micro: Microbiology 05/25/21 11:00 Aspirate - Abdominal Gram Stain - Final 05/19/21 14:22 Aspirate - Abdominal Gram Stain - Final 05/19/21 14:22 Aspirate - Abdominal Wound Culture - Final Streptococcus intermedius 05/19/21 14:22 Aspirate - Abdominal Anaerobic Culture - Final No anaerobic bacteria isolated. 05/19/21 06:43 Blood Culture (Wb) - Anticubital Right Blood Culture - Final Coag Negative Staph 05/19/21 06:46 Blood Culture (Wb) - Left Hand Blood Culture - Final No growth in 5 days. 05/19/21 04:50 Urine, Clean Catch Urine Culture - Final Mixed Gram Positive Organisms Assessment & Plan Assessment/Plan (1) Pelvic pain: (2) Anemia: QUALIFIERS: Anemia type: unspecified type Qualified Code(s): D64.9 - Anemia, unspecified (3) Leukocytosis: QUALIFIERS: Leukocytosis type: unspecified Qualified Code(s): D72.829 - Elevated white blood cell count, unspecified PLAN: now normalzied WBC count. (4) Left tubo-ovarian abscess: PLAN: Discussed with patient dc home if she tolerates regular diet for lunch -after discussion with hospitalist Dr. Díaz and Gen Surgeon Dr. Peoples- agree that with normalized wbc count and drain in place with active drainage she could be dc home. pt will continue with Augmentin BID x 14 days, maintain pelvic drain and will follow up in our office saturday05/29/[address] Bacon at [facility] ([address] Will plan for outpatient imaging and will remove DARIUS drain when minimal drainage noted- <30cc/day removal warranted. pt understands discharge instructions- if any fevers or worsening N/V or pain needs to return to ER or office for Evaluation. Pt does not require Pain meds- not taking at this time- can use tylenol or motrin if needed
--- NOTE | 2021-05-26 12:50 | PCM.DC.BLA ---
Discharge Summary Date of Admission: 05/19/21 Date of Discharge: 05/26/21 Summary: pt presented to [facility] ER on 05/19/21 for abdominal pain, Fever- underwent imaging - was diagnosed with possible TOA, Leukocytosis, Sepsis, Anemia. Hospitalist consulted upon admission due to sepsis. Pt received IV antibiotics- zosyn, Vancomycin and flagyl and one unit PRBC due to anemia. cultures obtained and were positive - once sensitives were returned was taken off zosyn and continued on vancomycin until ID consulted and restarted zosyn and discontinued flagyl and Vancomycin. General surgery consulted as well. Pt had IR drainage of Pelvic abscess performed on two occasions during hospital stay. After first drainage only minimal output noted- Per general surgery repeat IR drainage was performed. Pt continued to improve clinically and WBC trended down. pt tolerated PO antibiotics and regular diet- pt dc home on 05/26/[address]. pt will follow up with [facility] on 05/29/21. pt discharged on with AUGMENTIN BID x 14 days and Zofran as needed. Meaningful Use Info Meaningful Use Diagnoses (Choose all that apply): None applicable Discharge Plan Admission Admit Date/Time: 05/19/21 10:30 Primary Reason for Your Visit: Sepsis, Tuboovarian abscess Attending Provider: Silvestre Diamond Primary Care Provider: Janet Simon Consulting Providers: Bridgette Carpenter ; Nakul Noriega ; Helio Peoples Discharge Orders/Prescriptions Prescriptions: New ondansetron HCl 8 mg Tablet 8 mg PO Q8H PRN PRN (Reason: NAUSEA/VOMITING) Qty: 30 RF: 0 amoxicillin-pot clavulanate [Augmentin] 875-125 mg tablet 1 tab PO BID Qty: 28 RF: 0 meclizine 12.5 mg tablet 12.5 mg PO TID PRN (Reason: dizziness) Qty: 15 RF: 0 Referrals / Follow Up: Janet Simon MD [Primary Care Provider] - Disposition Disposition (needs filled in before D/C Order can be placed): Home, Self Care
[2021-05-26 13:46] VITALS: BP 124/73; PULSE 91; RESP 18; TEMP 36.9; O2SAT 98
[2021-05-26] MEDS: Amox/Clavulanate 875 MG Tablet PO (14:10)
--- NOTE | 2021-05-26 17:43 | NURSING ---
frank care shown to pt and .
--- NOTE | 2021-05-26 19:34 | PN.HOSP_ITS ---
Subjective Subjective Patient was seen and examined today, I talked with general surgery about her care as well as her [employer] physician. Patient appeared to be stable for discharge today, her white count is normal and she is able to eat, she did request Antivert for dizziness and I sent this via computer to the pharmacy today. Objective Data Objective Data Vital Signs: Vital Signs Temp Pulse Resp BP Pulse Ox 98.4 F 91 18 124/73 H 98 05/26/21 13:46 05/26/21 13:46 05/26/21 13:46 05/26/21 13:46 05/26/21 13:46 Oxygen Flow Rate (L/min) [9] 2 Oxygen Flow Rate (L/min) [8] 2 Oxygen Flow Rate (L/min) [7] 2 Oxygen Flow Rate (L/min) [6] 2 Oxygen Flow Rate (L/min) [5] 2 Oxygen Flow Rate (L/min) [4] 3 Oxygen Flow Rate (L/min) [3] 3 Oxygen Flow Rate (L/min) [2] 3 Oxygen Flow Rate (L/min) [1 ( 3 Initial Baseline)] Oxygen Flow Rate (L/min) 2 Oxygen Delivery Method [9] Nasal Cannula Oxygen Delivery Method [8] Nasal Cannula Oxygen Delivery Method [7] Nasal Cannula Oxygen Delivery Method [6] Nasal Cannula Oxygen Delivery Method [5] Nasal Cannula Oxygen Delivery Method [4] Nasal Cannula Oxygen Delivery Method [3] Nasal Cannula Oxygen Delivery Method [2] Nasal Cannula Oxygen Delivery Method [1 ( Nasal Cannula Initial Baseline)] Oxygen Delivery Method Room Air Weight: 115.4 kg Body Mass Index (BMI) 43.7 Intake & Output: Intake and Output for Last 24 Hours 05/24/21 05/25/21 05/26/21 23:59 23:59 23:59 Intake Total 3985.83 / 4285.83 2548.42 / 2548.42 2988.33 / 2988.33 Output Total 400 / 400 Balance 3965.83 / 4265.83 2148.42 / 2148.42 2968.33 / 2968.33 Lab / Micro Data Result Diagrams: 05/26/21 07:50 05/26/21 07:50 Labs: Laboratory Results - last 24 hr 05/26/21 07:50: WBC 8.2, RBC 3.17 L, Hgb 8.3 L, Hct 27.0 L, MCV 85.2, MCH 26.2 L , MCHC 30.7 L, RDW Std Deviation 53.0 H, RDW Coeff of Aldo 17.1 H, Plt Count 496 H, MPV 8.7, Immature Gran % (Auto) 1.300 H, Neut % (Auto) 76.7 H, Lymph % (Auto) 12.0 L, Bureau % (Auto) 6.9, Eos % (Auto) 2.7, Baso % (Auto) 0.4, Absolute Neuts (auto) 6.3, Absolute Lymphs (auto) 0.99, Nucleated RBC % 0 05/26/21 07:50: Sodium 143, Potassium 4.1, Chloride 114 H, Carbon Dioxide 25.0, Anion Gap 4 L, BUN 8, Creatinine 1.27 H, Estim Creat Clear Calc 43.73, Est GFR (MDRD) Af Amer 56 L, Est GFR (MDRD) Non-Af 47 L, BUN/Creatinine Ratio 6.3 L, Glucose 98, Calcium 7.6 L Micro: Microbiology 05/25/21 11:00 Aspirate - Abdominal Gram Stain - Final 05/25/21 11:00 Aspirate - Abdominal Wound Culture - Preliminary Gram positive lisette 05/19/21 14:22 Aspirate - Abdominal Gram Stain - Final 05/19/21 14:22 Aspirate - Abdominal Wound Culture - Final Streptococcus intermedius 05/19/21 14:22 Aspirate - Abdominal Anaerobic Culture - Final No anaerobic bacteria isolated. 05/19/21 06:43 Blood Culture (Wb) - Anticubital Right Blood Culture - Final Coag Negative Staph 05/19/21 06:46 Blood Culture (Wb) - Left Hand Blood Culture - Final No growth in 5 days. 05/19/21 04:50 Urine, Clean Catch Urine Culture - Final Mixed Gram Positive Organisms Physical Exam Const alert, oriented x3 and no apparent distress Constitutional Narrative: Patient is morbidly obese General Appearance: cooperative, well kempt and well developed Orientation / Consciousness: awake, oriented to person, oriented to place and oriented to time HEENT normocephalic, head/scalp atraumatic and moist oral mucous membranes Head and Scalp: normocephalic Eyes PERRL, EOMs intact bilaterally and conjunctivae normal Neck nuchal rigidity, supple, no JVD, thyroid normal and no carotid bruits General: trachea midline Resp normal respiratory effort, no retractions, no use of accessory muscles and clear to auscultation bilaterally Auscultation: Negative for rales, rhonchi or wheezes Cardio regular rate, regular rhythm, S1 normal heart sound, S2 normal heart sound, no murmurs, no rub and no gallops GI normal to inspection, nondistended, normoactive bowel sounds, soft to palpation, non-tender and non-distended GI Narrative: Abdominal drain is in place, patient is morbidly obese Extremity no clubbing, cyanosis or edema Skin no rashes or lesions noted General Skin Exam: no breakdown Neuro oriented x3, CN's II-XII intact bilaterally, no focal motor deficits and no sensory deficits noted Sensorium / Orientation: awake and alert Speech: speech normal Psych thought process normal and affect normal Assessment & Plan Assessment/Plan (1) Left tubo-ovarian abscess: PLAN: 1. Left tubo-ovarian abscess with Streptococcus intermedius-patient appears stable for discharge at this time, she was taught how to empty her drain reservoir by nursing today, patient's is also able to drain it-he was in the room today when we discussed this with the patient. Patient will take Augmentin as an outpatient. #2 sepsis secondary to #1-patient's white blood cell count was normal today #3 morbid obesity Charges/Coding Visit Charges Inpatient E&M: 89014 Subs Hosp L2
== END 2021-05-26 17:49 | disposition home or self-care (01) | DRG 872 ==
LOC: ED 10:28 → MS3 10:59
PROVIDERS: Emergency Medicine; Obstetrics & Gynecology; Student in an Organized Health Care Education/Training Program; Surgery; Admitting Provider Obstetrics & Gynecology; Emergency Provider Emergency Medicine; PCP Internal Medicine; Visit Provider Internal Medicine
DX: A41.9 Sepsis, unspecified organism (principal); Z68.41 Body mass index [BMI] 40.0-44.9, adult; N70.93 Salpingitis and oophoritis, unspecified; D64.9 Anemia, unspecified; B95.4 Other streptococcus as the cause of diseases classified elsewhere; E66.01 Morbid (severe) obesity due to excess calories
CPT/HCPCS: 36415; 74177; 75989; 76856; 80048; 80053; 80076; 80202; 81001; 83605; 83690; 85025; 85610; 85730; 86140; 86850; 86900; 86901; 86920; 86922; 87040; 87070; 87075; 87077; 87086; 87088; 87186; 87205; 88108; 88305; 88312; 88313; 93976; 97803; 99156; 99157; 99285; J7030; J7040; J7050; P9016; Q9967; A4216; J2405

== ENCOUNTER 2021-05-29 00:18 | Emergency (ER) | payer OTHER, SELFPAY ==
[2021-05-29 00:20] VITALS: BP 144/83; PULSE 83; RESP 16; TEMP 37; O2SAT 98; BMI 42.9
--- NOTE | 2021-05-29 00:56 | EX.ED.DYSGE1 ---
HPI History of Present Illness Chief Complaint: Wound Check Informant: patient Onset/Context/Timing Onset: Today Context: Gradual Onset Timing: Continuous Quality: Bloody drainage Location: Eagle-Mack drain from pelvis Worsened by: Nothing Relieved by: Nothing Narrative Narrative: Patient presents with increased drainage from her Eagle-Mack drain tonight. Patient states she had the drain placed 3 days ago for a tubo-ovarian abscess. Patient states that tonight she was needing to empty her drain approximately every 1-2 hours. Patient states it is mainly bloody drainage. Patient denies any fevers or chills. Patient states her pain is getting better since the drain was placed. Patient denies any nausea or vomiting. Patient denies any urinary symptoms. PFSH PFSH Home Medications amoxicillin-pot clavulanate [Augmentin] 1 tab PO BID #28 tab 05/26/21 [Rx Last Taken Unknown] meclizine 12.5 mg PO TID PRN #15 tab 05/26/21 [Rx Last Taken Unknown] ondansetron HCl 8 mg PO Q8H PRN PRN #30 tab 05/26/21 [Rx Last Taken Unknown] Allergy/AdvReac Type Severity Reaction Status Date / Time No Known Allergies Allergy Verified 05/29/21 00:20 Surgical History History of cholecystectomy Social History Smoking Status: Never smoker ROS ROS ED Constitutional Constitutional ED: Denies chills or fever(s) Eyes Eyes: Denies blurry vision or change in vision ENT ENT ED: Denies rhinorrhea or sore throat Cardiovascular Cardiovascular: Denies chest pain or palpitations Respiratory/Chest Respiratory/Chest: Denies cough or dyspnea Gastrointestinal Gastrointestinal: Reports other Details: Pelvic pain ; Denies nausea or vomiting Genitourinary Genitourinary ED: Denies dysuria or hematuria Musculoskeletal Musculoskeletal: Denies back pain or neck pain Integumentary Denies abscess or rash Neurologic Neurologic: Denies headache(s) or weakness Allergic/Immunologic Allergic/Immunologic ED: Denies mouth swelling or urticaria EXAM Physical Exam Const Vital Signs: 05/29/21 00:20 Temperature 98.6 F Temperature Source Oral Pulse Rate 83 Respiratory Rate 16 Blood Pressure 144/83 H Blood Pressure Mean 103 Pulse Ox 98 Oxygen Delivery Method Room Air Positive well nourished and well developed General Appearance ED: well developed HEENT Reports moist mucous membranes Neck supple and no JVD Resp normal respiratory effort and clear to auscultation bilaterally Cardio regular rate, regular rhythm and no murmurs GI normal to inspection, nondistended, normoactive bowel sounds and non-tender Palpation: soft Extremity normal to inspection General Extremety ED: Negative for edema or tenderness General Extremity: Negative for edema Neuro oriented x3, CN's II-XII intact bilaterally and no sensory deficits noted Sensorium / Orientation: alert Motor Exam: strength 5/5 throughout Psych mental status grossly normal Skin no rashes or lesions noted MDM MDM MDM Narrative Medical decision making narrative: CBC shows normal white blood cell count. Hemoglobin was 8.7 and hematocrit was 27.8. These are stable compared to previous results. Platelets were 569. These are also similar to prior results. Comprehensive metabolic profile was obtained and was essentially within normal limits. I do not feel the patient needs repeat CT scan since she has had one recently and her white blood cell count is normal and her H&H is stable. The DARIUS drain was left in place. There was a large amount of bloody drainage in the initial drainage device when she came in. There was a clot noted in the drainage tube. As much of that clot was removed as possible. The suction device was changed and there was minimal drainage at this time. Patient states she has an appointment with her surgeon later today. Patient was instructed to keep this appointment. Patient was instructed to return if worse in any way. Patient understood and was agreeable with the plan. All questions were answered. Lab Data Attestation: I reviewed the patient's lab results. Labs: Laboratory Results - last 24 hr 05/29/21 05/29/21 01:15 01:15 WBC 9.9 RBC 3.30 L Hgb 8.7 L Hct 27.8 L MCV 84.2 MCH 26.4 L MCHC 31.3 L RDW Std Deviation 52.9 H RDW Coeff of Aldo 17.2 H Plt Count 569 H MPV 9.2 Immature Gran % (Auto) 0.700 Neut % (Auto) 76.3 H Lymph % (Auto) 14.1 L [place] % (Auto) 6.2 Eos % (Auto) 2.4 Baso % (Auto) 0.3 Absolute Neuts (auto) 7.6 Absolute Lymphs (auto) 1.40 Nucleated RBC % 0 Sodium 143 Potassium 3.6 Chloride 109 H Carbon Dioxide 30.0 Anion Gap 4 L BUN 9 Creatinine 1.15 H Estim Creat Clear Calc 48.29 Est GFR (MDRD) Af Amer 63 Est GFR (MDRD) Non-Af 52 L BUN/Creatinine Ratio 7.8 L Glucose 103 Calcium 8.5 Total Bilirubin 0.20 AST 17 ALT 15 Alkaline Phosphatase 72 Total Protein 6.4 Albumin 1.9 L Globulin 4.5 H Albumin/Globulin Ratio 0.4 L Discharge Plan Triage Chief Complaint: Wound Check ED Provider: Donovan Espino Dx/Rx/DC Orders Clinical Impression: Left tubo-ovarian abscess Instructions: ED Post Op Wound Check, Bleeding Prescriptions: No Action ondansetron HCl 8 mg Tablet 8 mg PO Q8H PRN PRN (Reason: NAUSEA/VOMITING) Qty: 30 RF: 0 amoxicillin-pot clavulanate [Augmentin] 875-125 mg tablet 1 tab PO BID Qty: 28 RF: 0 meclizine 12.5 mg tablet 12.5 mg PO TID PRN (Reason: dizziness) Qty: 15 RF: 0 Primary Care Provider: Janet Simon Referrals: Janet Simon MD [Primary Care Provider] - 5-7 Days Doctor,Surgeon, [STAFF PHYSICIAN] - Keep [facility] appointment Disposition Disposition: Home, Self Care
--- NOTE | 2021-05-29 01:19 | ED.RN ---
patient presents with a FRANK drain that has had drainage increasing over the past hour. frank bulb noted to have a large clot. frank bulb drained and measured with noted large clot in the bulb. long clot noted in tubing leading to insertion site. at this time clot removed from the site. frank tubing stripped and cleared at this time. new frank drain applied and will be watched at this time
[2021-05-29 01:23] LABS: Absolute Neutrophil Count 7.6 X10^3/uL (2.0-7.7); Basophil# 0.03 X10^3/uL; Basophil% 0.3 % (0-1); Eosinophil# 0.24 X10^3/uL; Eosinophils% 2.4 % (0-5); Hematocrit 27.8 % (37-47); Hemoglobin 8.7 g/dL (12.0-15.0); Lymphocyte % 14.1 % (19-41); Mean Corp Hgb Conc 31.3 g/dL (32-36); Mean Corpuscular Hgb 26.4 pg (27.0-32.0); Mean Corpuscular Volume 84.2 fL (81-99); Mean Platelet Vol. 9.2 fl (6.2-12.0); Monocyte# 0.61 X10^3/uL; Monocyte% 6.2 % (0-10); NRBC Flagged by Analyzer 0 % (0-5); Neutrophil # 7.56 X10^3/uL (2.7-7.7); Neutrophil % 76.3 % (47-70); Platelet Count 569 K/mm3 (150-450); RBC Distribution Width CV 17.2 % (11.6-14.6); RBC Distribution Width SD 52.9 fl (35.1-43.9); White Blood Count 9.9 K/mm3 (4.4-11.0)
[2021-05-29 01:41] LABS: ALB/GLOB Ratio 0.4 RATIO (0.9-2.4); AST(SGOT) 17 U/L (15-37); Alanine Aminotransfer ALT/SGPT 15 U/L (13-56); Albumin, Serum 1.9 g/dL (3.2-5.0); Alkaline Phosphatase 72 U/L (45-117); Anion Gap 4 (5-15); BUN 9 mg/dL (7-18); BUN/Creat Ratio 7.8 RATIO (10-20); Calcium,Total 8.5 mg/dL (8.5-10.1); Chloride 109 mmol/L (98-107); Creatinine, Serum 1.15 mg/dL (0.55-1.02); EST Glomerular Filtration Rate 52 mL/min (>60); Est Glom Filt Rate - Afr Amer 63 mL/min (>60); Estimated Creatinine Clearance 48.29 ml/min; Globulin 4.5 g/dL (2.2-4.2); Glucose 103 mg/dL (74-106); Potassium 3.6 mmol/L (3.5-5.1); Protein, Total 6.4 g/dL (6.4-8.2); Sodium Level 143 mmol/L (136-145)
[2021-05-29 02:33] VITALS: RESP 16
== END 2021-05-29 02:34 | disposition home or self-care (01) ==
PROVIDERS: Emergency Provider Emergency Medicine; PCP Internal Medicine
DX: N70.93 Salpingitis and oophoritis, unspecified (principal); T85.9XXA Unspecified complication of internal prosthetic device, implant and graft, initial encounter; Z79.2 Long term (current) use of antibiotics
CPT/HCPCS: 80053; 85025; 99283; A4216

== ENCOUNTER 2021-05-29 19:06 | Emergency (ER) | payer OTHER, SELFPAY ==
[2021-05-29 19:07] VITALS: BP 162/95; PULSE 95; RESP 14; TEMP 36.3; O2SAT 98; BMI 19.7
--- NOTE | 2021-05-29 21:53 | EDS_ITS ---
HPI History of Present Illness Chief Complaint: Abscess Informant: patient Onset/Context/Timing Onset: Today (several hours ago) Context: Gradual Onset Timing: Continuous Quality: bleeding from around DARIUS site Location: left low back Current Severity: Mild Maximum Severity: Moderate Worsened by: unk Relieved by: nothing in particular Associated Symptoms Associated Symptoms: none Narrative Narrative: Patient recently had a tubo-ovarian abscess in the left, she had a drain placed but it was dislodged and then subsequently after imaging showed persistent abscess, she had a CT-guided DARIUS drain placed with it exiting in her left low back. She has been followed by [facility] for this. Tonight, she states there was a sullivan of drainage into the bulb of the DARIUS drain, followed by bleeding from around it that did not seem to stop even with changing the dressing over it. She denies any abdominal pain, she is a little bit of soreness where the drain inserts, but otherwise she has no symptoms. No fevers or chills. [facility] Medical History (Updated 05/29/21 @ 22:[address] Elier Juan MD) Anemia Left tubo-ovarian abscess Home Medications amoxicillin-pot clavulanate [Augmentin] 1 tab PO BID #28 tab 05/26/21 [Rx Last Taken Unknown] meclizine 12.5 mg PO TID PRN #15 tab 05/26/21 [Rx Last Taken Unknown] ondansetron HCl 8 mg PO Q8H PRN PRN #30 tab 05/26/21 [Rx Last Taken Unknown] Allergy/AdvReac Type Severity Reaction Status Date / Time No Known Allergies Allergy Verified 05/29/21 19:07 Surgical History History of cholecystectomy Social History Smoking Status: Never smoker ROS ROS ED Constitutional Constitutional ED: Denies chills or fever(s) Eyes Eyes: Denies change in vision or diplopia ENT ENT ED: Denies rhinorrhea or sore throat Cardiovascular Cardiovascular: Denies chest pain or palpitations Respiratory/Chest Respiratory/Chest: Denies cough or dyspnea Gastrointestinal Gastrointestinal: Denies abdominal pain, diarrhea, nausea or vomiting Genitourinary Genitourinary ED: Denies dysuria or hematuria Musculoskeletal Musculoskeletal: Reports as per HPI and back pain; Denies neck pain Integumentary Denies abscess or rash Neurologic Neurologic: Denies headache(s), paresthesias or weakness Psychiatric Psychiatric: Denies anxiety or suicidal thoughts EXAM Physical Exam Const Vital Signs: 05/29/21 19:07 Temperature 97.4 F L Temperature Source Temporal Pulse Rate 95 Respiratory Rate 14 Blood Pressure 162/95 H Blood Pressure Mean 117 Pulse Ox 98 Oxygen Delivery Method Room Air Positive well nourished, well developed and obese Constitutional Narrative: Well-appearing General Appearance ED: well developed and NAD Nutritional Appearance: obese HEENT Reports moist mucous membranes normocephalic and atraumatic Eyes PERRL and EOMs intact bilaterally Neck full ROM and supple Resp normal respiratory effort and clear to auscultation bilaterally Cardio regular rate, regular rhythm and no murmurs GI non-tender and non-distended GI Narrative: Drain site left lower quadrant is healing well without tenderness or signs of infection or discharge. Auscultation: normoactive bowel sounds Palpation: soft Back/Spine no CVA tenderness Back/Spine Narrative: Patient's DARIUS drain has blood and clot in the tubing/bulb, it is bandaged to her left low back. Upon gently peeling back the layers of bandage while holding the tube so it is lax, the tip of the tube popped out of her skin, it was just barely beneath the surface. There is no active bleeding or discharge and no signs of infection around the site. General Back: other FROM Extremity normal to inspection General Extremety ED: Negative for edema, pulses abnormal or tenderness General Extremity: Negative for edema or pulses abnormal Neuro oriented x3, CN's II-XII intact bilaterally and no sensory deficits noted Sensorium / Orientation: awake and alert Motor Exam: strength 5/5 throughout Skin no rashes or lesions noted and no wounds MDM MDM MDM Narrative Medical decision making narrative: Nursing put a fresh dressing over the drain site and the drain/tubing was discarded. I discussed with Dr. Bacon. The patient has a CT scan scheduled for 3 days from now, and since she is clinically doing well with normal vital signs and is virtually asymptomatic, she would advise discharging the patient continue her Augmentin and get her CT as scheduled. We discussed reasons to return. Discharge Plan Triage Chief Complaint: Abscess ED Provider: Elier Juan Dx/Rx/DC Orders Clinical Impression: Broken Eagle-Mack drain Instructions: Surgical Drain Care Prescriptions: No Action ondansetron HCl 8 mg Tablet 8 mg PO Q8H PRN PRN (Reason: NAUSEA/VOMITING) Qty: 30 RF: 0 amoxicillin-pot clavulanate [Augmentin] 875-125 mg tablet 1 tab PO BID Qty: 28 RF: 0 meclizine 12.5 mg tablet 12.5 mg PO TID PRN (Reason: dizziness) Qty: 15 RF: 0 Primary Care Provider: Janet Simon Referrals: Janet Simon MD [Primary Care Provider] - Dina Bacon DO [STAFF PHYSICIAN] - Keep [facility] appointment (Continue to have scheduled CT scanning) Disposition Disposition: Home, Self Care
== END 2021-05-29 22:39 | disposition home or self-care (01) ==
PROVIDERS: Emergency Provider Emergency Medicine; PCP Internal Medicine
DX: T85.628A Displacement of other specified internal prosthetic devices, implants and grafts, initial encounter (principal); E66.9 Obesity, unspecified
CPT/HCPCS: 99282

== ENCOUNTER 2023-11-17 20:18 | Emergency (ER) | payer OTHER, SELFPAY ==
[2023-11-17 20:18] VITALS: BP 147/92; PULSE 93; RESP 18; TEMP 36.6; O2SAT 96; BMI 42.4
--- NOTE | 2023-11-17 20:53 | RAD_ITS ---
EXAM: XR RIGHT RIBS AND AP CHEST, 3 OR MORE VIEWS CLINICAL INDICATION: pain TECHNIQUE: Frontal and oblique views of the right ribs and frontal view of the chest. COMPARISON: No relevant prior studies available. FINDINGS: LUNGS AND PLEURAL SPACES: Unremarkable. No consolidation or edema. No pneumothorax. No effusion. HEART: Unremarkable. Cardiac silhouette not enlarged. MEDIASTINUM: Central airways and mediastinal contour are unremarkable. BONES/JOINTS: Unremarkable. No evidence of displaced rib fractures. RAD/Ribs Uni Min 3V w/PA Chest IMPRESSION: Negative chest and right ribs series. Electronically Signed: Jarret Hightower MD at 21:17 EDT ,
--- NOTE | 2023-11-17 21:07 | EDS_ITS ---
HPI <OFELIA Lu - Last Filed: 11/17/23 21:38> History of Present Illness Chief Complaint: Chest Other Narrative Narrative: 58-year-old female fell off a ladder 1 week ago. She was inside hanging something about 8 feet up when she fell onto concrete floor onto her right side. She states she mostly she will hit her head with RRR and only slightly hit the back of her head on the ground. Her right arm and right rib cage took the brunt of the fall. She has had soreness in the right mid back but over the last 2 days she had a new sharp pulling sensation in the right lateral rib cage extending under the right breast. She denies difficulty breathing. She has no abdominal pain or nausea or vomiting. No blood in her urine or stool. She is not on blood thinners. [facility] <OFELIA Lu - Last Filed: 11/17/23 21:38> [facility] Medical History (Updated 11/17/23 @ 21:15 by OFELIA Lu) Anemia Left tubo-ovarian abscess Home Medications escitalopram oxalate 10 mg tablet 15 mg PO DAILY 11/17/23 [History Last Taken Unknown] hydrocodone-acetaminophen 5-325mg 5mg-325mg 1 tab PO QHS PRN pain 7 days #7 tabs 11/17/23 [Rx Last Taken Unknown] Allergy/AdvReac Type Severity Reaction Status Date / Time No Known Allergies Allergy Verified 11/17/23 20:20 Surgical History History of cholecystectomy Social History Smoking Status: Never smoker ROS <OFELIA Lu - Last Filed: 11/17/23 21:38> ROS ED ROS Narrative CVS: Negative for chest wall pain. Respiratory: Negative for shortness of breath. GI: Negative for abdominal pain. Neuro: Negative for headache, motor/sensory dysfunction. EXAM <OFELIA Lu - Last Filed: 11/17/23 21:38> Physical Exam Narrative Exam Narrative: CONST: Patient sitting in no acute distress. EYES: Normal inspection. NECK: Normal inspection. RESP: No respiratory distress, CTAB. CVS: Regular rate and rhythm, no murmur, no gallop. Tender to palpation over right rib cage under the right breast extending towards her side. No bruising. No deformity or crepitus. ABD: Soft and nontender, no guarding or rebound, nondistended. Back: Normal inspection, no midline tenderness. SKIN: Color normal, no rash, warm, dry, intact. EXTREMITIES: Ecchymosis and swelling of the right forearm. No bony tenderness of the shoulder, elbow, forearm wrist or hand. 2+ radial pulses. Normal appearance of lower extremities, nontender, 2+ PT pulses. NEURO: Alert and answering questions appropriately. PSYCH: Normal affect. Const Vital Signs: 11/17/23 20:18 Temperature 98 F Temperature Source Temporal Pulse Rate 93 Respiratory Rate 18 Blood Pressure 147/92 H Blood Pressure Mean 110 Pulse Ox 96 Oxygen Delivery Method Room Air <Dr. Donovan Espino DO - Last Filed: 11/17/23 21:21> Physical Exam Const Vital Signs: 11/17/23 20:18 Temperature 98 F Temperature Source Temporal Pulse Rate 93 Respiratory Rate 18 Blood Pressure 147/92 H Blood Pressure Mean 110 Pulse Ox 96 Oxygen Delivery Method Room Air MDM <OFELIA Lu - Last Filed: 11/17/23 21:38> [facility] Narrative Medical decision making narrative: Patient fell from a ladder 1 week ago and presents with right rib cage pain. She appears well and nontoxic. Vital signs stable. She is tender over the right anterior lateral lower rib cage with no external signs of trauma. Normal heart and lung sounds. No abdominal tenderness. She also has bruising and swe lling of her right forearm but has no bony tenderness of the extremity and states it is not bothering her. Right rib series shows no evidence of displaced rib fracture or pneumothorax. She declined analgesia here she would like to drive home. She states the pain is worse at night when she rolls over so I prescribed [place] to take at bedtime. She is comfortable taking Tylenol/ibuprofen during the day. She was discharged in stable condition. Radiography Diagnostic Testing: Clinical Impression(s) from Imaging Studies Ribs w/Chest X-Ray 11/17/23 20:53 IMPRESSION: Negative chest and right ribs series. Electronically Signed: Jarret Hightower MD at 21:17 EDT , <Dr. Donovan Espino, DO - Last Filed: 11/17/23 21:21> MDM Radiography Diagnostic Testing: Clinical Impression(s) from Imaging Studies Ribs w/Chest X-Ray 11/17/23 20:53 IMPRESSION: Negative chest and right ribs series. Electronically Signed: Jarret Hightower MD at 21:17 EDT , Treatment and Re-Evaluation :: I have personally performed a face to face assessment of the patient and have reviewed the SARA Note. I performed a substantive portion of the visit including all aspects of the following. My carvalho findings include: History: Patient presents with right rib pain that began after a fall 1 week ago. Patient states she fell from a ladder approximately 8 feet. Patient states she might have hit her head but denies any loss of consciousness. Patient states her pain is cramping and stabbing. Patient states it is worse when she bends to the right. Patient denies any shortness of breath. Patient denies any nausea or vomiting. Patient also admits to some mild bruising to her right forearm. Exam: Vital signs are stable. Patient is afebrile. Patient is in no acute distress. Oral mucosa is pink and moist. Neck is supple. Trachea is midline. There is no JVD. Heart was regular rate and rhythm. Lungs are clear and equal bilaterally. There is good respiratory effort noted. There is tenderness over the right lateral ribs. There is no edema or ecchymosis. There is no subcutaneous emphysema noted. Abdomen is soft. Bowel sounds are normal. There is no tenderness. Cranial nerves II through XII are intact. There are no focal motor or sensory deficits noted. Extremities are intact. There is edema and ecchymosis over the volar aspect of the right proximal forearm. There is no deformity noted. There is full range of motion. Radial pulses are equal bilaterally. Medical Decision Making: Differential diagnosis includes pneumothorax, rib fracture, and contusion. X-rays of the right ribs will be obtained to assess for rib fracture or pneumothorax. Patient declined analgesics. X-rays of the right ribs were obtained. There are 5 views. On my independent interpretation, there is no acute fracture. There is no pneumothorax. Radiologist also interpreted the x-rays and agrees. Patient was advised of her findings. Patient was instructed to continue using ice to the area. Patient was instructed to take 10-15 deep breaths every hour while awake to prevent atelectasis and pneumonia. Patient was instructed to use Tylenol or ibuprofen as needed for pain. Patient understood and was agreeable with the plan. All questions were answered. Discharge Plan Triage Chief Complaint: Chest Other ED Midlevel Provider: Usha Noble ED Provider: Donovan Espino Dx/Rx/DC Orders Clinical Impression: Contusion of rib on right side, Fall from ladder, Contusion of right forearm Instructions: ED Chest Wall Contusion Prescriptions: New hydrocodone-acetaminophen 5-325 mg tablet 1 tab PO QHS PRN (Reason: pain) 7 Days Qty: 7 0RF No Action escitalopram oxalate 10 mg tablet 15 mg PO DAILY Primary Care Provider: Janet Simon Referrals: Janet Simon MD [Primary Care Provider] - 5-7 Days Activity Restrictions/Additional Instructions: I prescribed hydrocodone he can take at bedtime. I recommend alternating Tylenol and Motrin during the day. Disposition Disposition: Home, Self Care
== END 2023-11-17 21:41 | disposition home or self-care (01) ==
PROVIDERS: Emergency Provider Emergency Medicine; PCP Internal Medicine; Visit Provider Emergency Medicine
DX: S20.211A Contusion of right front wall of thorax, initial encounter (principal); S50.11XA Contusion of right forearm, initial encounter; W11.XXXA Fall on and from ladder, initial encounter; Z79.899 Other long term (current) drug therapy
CPT/HCPCS: 71101; 99282